=== PATIENT | male | born 1965 | race Caucasian/White ===

== ENCOUNTER 2020-12-01 14:41 | Outpatient (REF) | payer OTHER, SELFPAY ==
--- NOTE | ~2020-12-01 | XR_ITS ---
EXAMINATION: XR KNEE, LEFT CLINICAL INFORMATION: Sprain of the lateral collateral ligament. COMPARISON: None. TECHNIQUE: AP, lateral, and sunrise views of the left knee. FINDINGS: Lateral patellar subluxation with moderate lateral patellofemoral joint space narrowing. Prominent tricompartmental marginal osteophytes. No fracture or dislocation. No significant joint effusion. Patellofemoral chondrocalcinosis. XR/XR knee LT 3V IMPRESSION: Prominent tract compartment osteophyte arthritis, most severe within the patellofemoral compartment where there is chondrocalcinosis.
== END 2020-12-01 14:42 | disposition home or self-care (01) ==
LOC: HO.XRAY 14:41
PROVIDERS: PCP Internal Medicine; Visit Provider Physician Assistant
DX: S83.422A Sprain of lateral collateral ligament of left knee, initial encounter (principal)
CPT/HCPCS: 73562

== ENCOUNTER → 2020-12-04 13:31 | Outpatient (BNVA) | payer OTHER, SELFPAY | PROVIDERS: PCP Physician Assistant; Visit Provider Physician Assistant | DX: M17.12 Unilateral primary osteoarthritis, left knee (principal); S83.002D Unspecified subluxation of left patella, subsequent encounter | CPT/HCPCS: 20610; J1040 ==

== ENCOUNTER 2021-02-04 16:50 | Outpatient (REF) | payer OTHER, SELFPAY ==
[2021-02-04 17:59] LABS: Hematocrit 46.4 % (42-52); Hemoglobin 15.9 g/dl (14.0-18.0); Mean Corpuscular HGB Conc 34.3 g/dl (31.0-36.0); Mean Corpuscular Hemoglobin 30.3 pg (27.0-33.0); Mean Corpuscular Volume 88.5 fL (80-98); Mean Platelet Volume 10.7 fL (9.4-12.4); Platelet Count 344 X10*3/uL (160-400); Red Blood Count 5.24 X10*6/uL (4.60-5.80); Red Cell Distribution Width 12.4 % (11.0-16.0); White Blood Count 9.6 X10*3/uL (4.8-10.8)
[2021-02-04 18:25] LABS: Alanine Aminotransferase 34 U/L (0-40); Albumin Level 4.3 g/dL (3.5-5.0); Alkaline Phosphatase 87 U/L (39-117); Anion Gap 15 (12-20); Aspartate Amino Transferase 23 U/L (5-37); Bilirubin Direct 0.3 mg/dL (0.0-0.5); Bilirubin Total 0.7 mg/dL (0.0-1.0); Blood Urea Nitrogen 18 mg/dL (9-16); Calcium 9.7 mg/dL (8.4-10.2); Carbon Dioxide 25 mmol/L (22-29); Chloride 104 mmol/L (96-108); Cholesterol 225 mg/dL; Estimated Glomerular Filt Rate 55; Glucose Random 256 mg/dL (60-115); HDL Cholesterol 32 mg/dL; LDL Cholesterol Calculated 133 mg/dl; Potassium 4.8 mmol/L (3.3-5.1); Sodium 139 mmol/L (135-145); Total Protein 7.6 g/dL (6.5-8.0); Triglycerides 300 mg/dL
== END 2021-02-04 16:51 | disposition home or self-care (01) ==
LOC: HO.LAB 16:50
PROVIDERS: PCP Internal Medicine; Visit Provider Internal Medicine
DX: R10.9 Unspecified abdominal pain (principal)
CPT/HCPCS: 36415; 80048; 80061; 80076; 85027

== ENCOUNTER 2021-02-15 08:00 | Outpatient (REF) | payer OTHER, SELFPAY | END 2021-02-15 08:01 | disposition home or self-care (01) | LOC: HO.LAB 08:00 | PROVIDERS: PCP Internal Medicine; Visit Provider Internal Medicine | DX: Z20.822 Contact with and (suspected) exposure to COVID-19 (principal) | CPT/HCPCS: C9803; U0003; U0005 ==

== ENCOUNTER 2021-03-03 11:29 | Outpatient (REF) | payer OTHER, SELFPAY ==
--- NOTE | ~2021-03-03 | US_ITS ---
EXAMINATION: US ABDOMEN COMPLETE CLINICAL INFORMATION: Abnormal levels of serum enzymes. Abdominal pain. COMPARISON: Renal ultrasound 04/27/2017 and 10/04/2011. KUB 07/11/2010. CT abdomen and pelvis 06/28/2010. TECHNIQUE: Real-time imaging of the abdominal viscera. FINDINGS: PANCREAS: The pancreas appears unremarkable, without masses or ductal dilatation, with the exception of the tail which is obscured by bowel gas. ABDOMINAL AORTA: An enlarging distal aortic aneurysm is present measuring 2.9 x 3.6 cm. In 2010 this measured 2.9 x 3.0 cm. INFERIOR VENA CAVA: Visualized portions are normal. LIVER: The liver is normal in size. The liver contour is normal. Parenchymal echogenicity is normal. No focal hepatic lesion. There is no intrahepatic biliary duct dilatation seen. GALLBLADDER: Normal. The gallbladder is physiologically distended without evidence of stones, sludge, polyps, wall thickening or pericholecystic fluid. COMMON BILE DUCT: Normal in caliber measuring 0.4 cm in diameter. RIGHT KIDNEY: No hydronephrosis. No renal calculi or focal parenchymal lesions. The kidney measures 11.6 cm in maximum dimension. LEFT KIDNEY: A mid pole 4 x 2 x 3 mm nonobstructing stone is present. No hydronephrosis. The kidney measures 12.8 cm in maximum dimension. An upper pole exophytic cyst is seen measuring 3.6 x 3.0 x 2.9 cm. This is Bosniak class I and no follow up is indicated. No solid masses are detected. SPLEEN: Normal. The spleen measures 11.4 cm in maximum dimension. FREE FLUID: None. US/US abdomen complete IMPRESSION: 1. 3.6 cm infrarenal abdominal aortic aneurysm, 2.9 x 3.0 cm in 2010. 2. 4 mm nonobstructing left midpole calculus.
== END 2021-03-03 11:30 | disposition home or self-care (01) ==
LOC: HO.HMGCX 11:29
PROVIDERS: PCP Internal Medicine; Visit Provider Internal Medicine
DX: R10.9 Unspecified abdominal pain (principal); R74.8 Abnormal levels of other serum enzymes
CPT/HCPCS: 76700

== ENCOUNTER 2022-03-15 07:29 | Outpatient (REF) | payer OTHER, SELFPAY ==
[2022-03-15 07:48] LABS: MANUAL DIFF FLAG NO
[2022-03-15 07:54] LABS: Basophils Percent Auto 0.3 % (0-2); Eosinophils Absolute Auto 0.2 X10*3/uL (0.0-0.4); Eosinophils Percent Auto 2.4 % (0-4); Hematocrit 44.1 % (42.0-52.0); Hemoglobin 14.9 g/dl (14.0-18.0); Imm Gran Abs Auto 0.02 X10*3/uL (0.00-0.03); Imm Gran Pct Auto 0.3 % (0.0-0.4); Lymphocytes Absolute Auto 2.6 X10*3/uL (1.2-4.9); Lymphocytes Percent Auto 34.1 % (20-40); Mean Corpuscular HGB Conc 33.8 g/dl (31.0-36.0); Mean Corpuscular Hemoglobin 29.5 pg (27.0-33.0); Mean Corpuscular Volume 87.3 fL (80.0-98.0); Mean Platelet Volume 10.4 fL (9.4-12.4); Monocytes Absolute Auto 0.5 X10*3/uL (0.1-1.2); Monocytes Percent Auto 6.2 % (2-11); Neutrophils Absolute Auto 4.3 x10*3/uL (2.0-8.3); Neutrophils Percent Auto 56.7 % (45-73); Platelet Count 286 X10*3/uL (160-400); Red Blood Count 5.05 X10*6/uL (4.60-5.80); Red Cell Distribution Width 12.1 % (11.0-16.0); White Blood Count 7.5 X10*3/uL (4.8-10.8)
[2022-03-15 08:18] LABS: Estimated Average Glucose 214 mg/dL; Hemoglobin A1c % 9.1 %
[2022-03-15 08:19] LABS: Alanine Aminotransferase 35 U/L (0-40); Alkaline Phosphatase 98 U/L (39-117); Anion Gap 12 (12-20); Aspartate Amino Transferase 21 U/L (5-37); Bilirubin Total 0.6 mg/dL (0.0-1.0); Blood Urea Nitrogen 17 mg/dL (9-16); Calcium 8.8 mg/dL (8.4-10.2); Carbon Dioxide 24 mmol/L (22-29); Chloride 104 mmol/L (96-108); Cholesterol 169 mg/dL; Estimated Glomerular Filt Rate > 60; Glucose Fasting 174 mg/dL (60-99); HDL Cholesterol 32 mg/dL; LDL Cholesterol Calculated 118 mg/dl; Potassium 3.8 mmol/L (3.3-5.1); Sodium 136 mmol/L (135-145); Triglycerides 98 mg/dL
[2022-03-15 10:46] LABS: Creatinine Urine 247.47 mg/dL; Microalbum/Creatinine Ratio Ur 4.8 ug/mg cr
== END 2022-03-15 07:30 | disposition home or self-care (01) ==
LOC: HO.LAB 07:29
PROVIDERS: PCP Internal Medicine; Visit Provider Internal Medicine
DX: Z13.0 Encounter for screening for diseases of the blood and blood-forming organs and certain disorders involving the immune mechanism (principal); E11.69 Type 2 diabetes mellitus with other specified complication; E66.01 Morbid (severe) obesity due to excess calories; I10 Essential (primary) hypertension; E78.5 Hyperlipidemia, unspecified
CPT/HCPCS: 36415; 80053; 80061; 82043; 83036; 85025

== ENCOUNTER 2022-05-04 10:34 | Outpatient (REF) | payer OTHER, SELFPAY ==
--- NOTE | ~2022-05-04 | US_ITS ---
EXAMINATION: US RETROPERITONEAL LIMITED (AORTA) CLINICAL INFORMATION: Abdominal aortic aneurysm, without rupture. COMPARISON: Ultrasound abdomen complete 03/03/2021. TECHNIQUE: Morgan-scale, color Doppler and spectral Doppler evaluation of the abdominal aorta. FINDINGS: There are atherosclerotic calcifications. The measurements of the aorta in maximum AP and transverse dimensions respectively are as follows: Proximal: 2.6 x 2.7 cm. Mid: 2.1 x 2.3 cm. Distal: 2.4 x 2.7 cm. PSV: 102 cm/s. The measurements of the common iliac arteries in maximum AP and TRV dimensions are as follows: Right Common Iliac Artery: 1.0 x 1.1 cm. Left Common Iliac Artery: 1.1 x 1.3 cm. US/US abdominal aortic aneurysm IMPRESSION: There is ectasia of the abdominal aorta, without luiza aneurysm formation.
== END 2022-05-04 10:35 | disposition home or self-care (01) ==
LOC: HO.HMGCX 10:34
PROVIDERS: PCP Internal Medicine; Visit Provider Physician Assistant
DX: I71.40 Abdominal aortic aneurysm, without rupture, unspecified (principal)
CPT/HCPCS: 76706

== ENCOUNTER 2022-06-29 07:38 | Emergency (ER) | payer OTHER, SELFPAY ==
--- NOTE | ~2022-06-29 | XR_ITS ---
EXAMINATION: XR CHEST CLINICAL INFORMATION: Pneumonia COMPARISON: 01/05/2009 TECHNIQUE: 2 views of the chest were obtained. FINDINGS: No significant abnormality is noted involving the heart, lungs, mediastinum, bony thorax or soft tissues. Patient status post median sternotomy and a left chest wall bipolar pacemaker is present. XR/XR chest 2V IMPRESSION: No acute intrathoracic disease.
[2022-06-29 07:43] VITALS: BP 146/92; PULSE 95; RESP 18; TEMP 36.7; O2SAT 95; BMI 28.5
[2022-06-29 07:46] VITALS: BP 143/82; PULSE 86; RESP 17; TEMP 37.5; O2SAT 91
--- NOTE | 2022-06-29 07:55 | ED.GENADULT ---
HPI - General Adult General Chief complaint: General Medical Stated complaint: Headache/Cough/Congestion Time Seen by Provider: 06/29/22 07:50 Source: patient Mode of arrival: ambulatory Limitations: no limitations History of Present Illness HPI narrative: This is a 57 years old male presented to emergency department complaining of cough or congestion for about a week. Cough is productive of brown sputum. He did home COVID test which was negative. Patient has history of type 1 diabetes and coronary artery disease status post CABG a Onset (ago): week(s) ( 1) Location: chest Severity: moderate Pain Consistency: constant Associated symptoms: cough Related Data Home Medications Medication Instructions Recorded Confirmed flash glucose sensor #1 ea 04/15/20 03/04/22 insulin glargine 100 unit/mL (3 40 unit subcut BEDTIME 04/15/20 03/04/22 mL) subcutaneous pen aspirin 81 mg tablet,delayed 81 mg PO DAILY 12/01/20 03/04/22 release (Adult Aspirin Regimen) insulin lispro 100 unit/mL 0 - 16 unit subcut TID 02/04/21 03/04/22 subcutaneous pen (Humalog KwikPen (U-100) Insulin) Previous Rx's Medication Instructions Recorded fluticasone propionate 50 1 spray intranasal DAILY 7 days 02/19/21 mcg/actuation nasal #150 mL spray,suspension (Flonase Allergy Relief) blood pressure test kit-large #1 ea 04/05/21 atorvastatin 80 mg tablet 80 mg PO DAILY #90 tabs 10/20/21 metoprolol tartrate 25 mg tablet 12.5 mg PO BID #180 tabs 03/04/22 azithromycin 250 mg tablet See Rx Instructions PO .COMPLEX #6 05/04/22 tabs doxycycline monohydrate 100 mg 100 mg PO BID #14 caps 06/29/22 capsule (Monodox) Allergies Allergy/AdvReac Type Severity Reaction Status Date / Time No Known Allergies Allergy Verified 03/04/22 13:45 [No Known Allergies*] Review of Systems Constitutional: Constitutional: Reports no additional constitutional complaints ENT: Reports system reviewed and no additional complaints, except as documented Respiratory: Respiratory: Reports cough PMFSH Past Medical History Medical History Abdominal aortic aneurysm (AAA) 3.0 cm to 5.5 cm in diameter in male Surgical History Status post double vessel coronary artery bypass Family History Family History Mother Alzheimer disease Mental health disorder Father No problems noted. 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 Cognitive needs: No Hearing needs: No Vision needs: Yes (glasses) Physical Exam ED Vital Signs: Vital Signs - 24 hr 06/29/22 07:43 06/29/22 07:46 06/29/22 09:14 Temperature 98.1 F 99.5 F 98.2 F Pulse Rate 95 86 57 Respiratory Rate 18 17 14 Blood Pressure 146/92 H 143/82 H 98/64 Pulse Oximetry 95 91 L 94 Oxygen Delivery Method Room Air Room Air Room Air BMI result Body Mass Index 28.5 Const General: cooperative Nutritional Appearance: well nourished Orientation/consciousness: patient oriented x3 HENMT Head: Yes normal to inspection General nose exam: Normal external nose present Mouth: Normal oral and palatal mucosa present Neck Neck: Yes normal visual inspection and Yes full ROM Chest Chest palpation & inspection: normal inspection of the chest Resp Effort & Inspection: normal respiratory effort Cardio Jugular venous distension: no JVD Rate: regular rate GI Inspection: Yes normal to inspection Palpation (GI): Soft to palpation, not firm and nontender Skin General skin exam: no rashes or lesions noted and elasticity normal Lesions: no lesions Rashes: no rashes Neuro General: patient oriented x3 Cranial nerves: Yes CN's II-XII intact bilaterally Gait exam (Neuro): Normal gait present Course Reevaluation(s) Reevaluation #1: Chest x-ray is negative, patient as per the cough will discharge him home on doxycycline he is otherwise afebrile and normotensive Time: 09:15 Medications Administered Discontinued Medications Generic Name Dose Route Start Last Admin Trade Name Freq PRN Reason Stop Dose Admin Doxycycline Monohydrate 100 mg 06/29/22 09:12 06/29/22 09:22 Doxycycline Monohydrate 100 Mg Capsule PO 06/29/22 09:13 100 mg ONCE ONE Administration Medical Decision Making Medical Decision Making [facility] Narrative: Patient presented with cough congestion were going to get a chest x-ray to rule out pneumonia Differential Diagnosis Differential Diagnoses: The differential diagnosis associated with the presentation includes Differential diagnosis is pneumonia/bronchitis l Lab Data [facility] Lab Attestation statement: I reviewed the patient's lab results. Labs: Lab Results 06/29/22 Range/Units 07:55 COVID-19 (FRANCINE) Negative (Negative) COVID-19 Clin Com See Note Independent Interpretation I performed an independent interpretation of an: Plain X-Ray Interpretation: negative Radiology Impression Discussion of test interpretation with radiology: I have reviewed the radiologist's reading. Radiologist Impression: CLINICAL INFORMATION: Pneumonia COMPARISON: 01/05/2009 TECHNIQUE: 2 views of the chest were obtained. FINDINGS: No significant abnormality is noted involving the heart, lungs, mediastinum, bony thorax or soft tissues. Patient status post median sternotomy and a left chest wall bipolar pacemaker is present. XR/XR chest 2V IMPRESSION: No acute intrathoracic disease. ? Dictated By: Sal Antonio MD Signed By: <Electronically signed by Sal Antonio MD in OV> 06/29/22 0834 Discharge Plan Discharge Clinical Impression: Bronchitis Patient Disposition: Home, Self-Care Instructions: Acute Bronchitis (ED) Prescriptions: New doxycycline monohydrate [Monodox] 100 mg capsule 100 mg PO BID Qty: 14 0RF No Action atorvastatin 80 mg tablet 80 mg PO DAILY Qty: 90 8RF azithromycin 250 mg tablet See Rx Instructions PO .COMPLEX Qty: 6 0RF Rx Instructions: take 500 mg today (day 1), then 250 mg for 4 days (days 2-5) PO Lantus Solostar U-100 Insulin 100 unit/mL (3 mL) insulin pen 40 unit subcut BEDTIME (DME) FreeStyle Gaston 14 Day Sensor Kit See Rx Instructions topical .MEDSUPPLY Qty: 1 Rx Instructions: As directed aspirin [Adult Aspirin Regimen] 81 mg tablet,delayed release (DR/EC) 81 mg PO DAILY (DME) blood pressure test kit-large Kit See Rx Instructions .Route Qty: 1 0RF Rx Instructions: As directed insulin lispro [Humalog KwikPen Insulin] 100 unit/mL insulin pen 0 - 16 unit subcut TID fluticasone propionate [Flonase Allergy Relief] 50 mcg/actuation spray,suspension 1 spray intranasal DAILY 7 Days Qty: 150 0RF Rx Instructions: administer into each nostril metoprolol tartrate 25 mg tablet 12.5 mg PO BID Qty: 180 8RF Referrals: Benedicto Kay MD [Primary Care Provider] - 2 days Stand Alone Forms: Work/School Release Interventions: ED Discharge Assessment Last Done: 06/29/22 09:24 Discharge Date/Time: 06/29/22 09:25
[2022-06-29 08:28] LABS: COVID-19 Test Negative (Negative); IDNOW Serial# 9DB6401D
[2022-06-29 09:14] VITALS: BP 98/64; PULSE 57; RESP 14; TEMP 36.8; O2SAT 94
[2022-06-29] MEDS: Doxycycline Monohydrate 100 MG CAPSULE PO (09:22)
== END 2022-06-29 09:25 | disposition home or self-care (01) ==
PROVIDERS: Emergency Provider Emergency Medicine; PCP Internal Medicine
DX: J40 Bronchitis, not specified as acute or chronic (principal); R51.9 Headache, unspecified; R05.9 Cough, unspecified; R09.81 Nasal congestion; Z20.822 Contact with and (suspected) exposure to COVID-19; Z20.828 Contact with and (suspected) exposure to other viral communicable diseases; Z79.899 Other long term (current) drug therapy
CPT/HCPCS: 71046; 87635; 99283

== ENCOUNTER 2022-11-07 06:28 | Outpatient (REF) | payer OTHER, SELFPAY ==
[2022-11-07 06:47] LABS: MANUAL DIFF FLAG NO
[2022-11-07 07:21] LABS: Basophils Percent Auto 0.5 % (0-2); Eosinophils Absolute Auto 0.1 X10*3/uL (0.0-0.4); Eosinophils Percent Auto 1.7 % (0-4); Hematocrit 45.4 % (42.0-52.0); Hemoglobin 15.3 g/dl (14.0-18.0); Imm Gran Abs Auto 0.02 X10*3/uL (0.00-0.03); Imm Gran Pct Auto 0.3 % (0.0-0.4); Lymphocytes Absolute Auto 2.6 X10*3/uL (1.2-4.9); Lymphocytes Percent Auto 33.3 % (20-40); Mean Corpuscular HGB Conc 33.7 g/dl (31.0-36.0); Mean Corpuscular Hemoglobin 29.8 pg (27.0-33.0); Mean Corpuscular Volume 88.3 fL (80.0-98.0); Mean Platelet Volume 10.5 fL (9.4-12.4); Monocytes Absolute Auto 0.5 X10*3/uL (0.1-1.2); Monocytes Percent Auto 6.9 % (2-11); Neutrophils Absolute Auto 4.4 x10*3/uL (2.0-8.3); Neutrophils Percent Auto 57.3 % (45-73); Platelet Count 305 X10*3/uL (160-400); Red Blood Count 5.14 X10*6/uL (4.60-5.80); Red Cell Distribution Width 12.1 % (11.0-16.0); White Blood Count 7.7 X10*3/uL (4.8-10.8)
[2022-11-07 07:58] LABS: Estimated Average Glucose 223 mg/dL; Hemoglobin A1c % 9.4 %
[2022-11-07 08:09] LABS: Alanine Aminotransferase 24 U/L (0-40); Alkaline Phosphatase 100 U/L (39-117); Anion Gap 11 (12-20); Aspartate Amino Transferase 17 U/L (5-37); Bilirubin Total 0.9 mg/dL (0.0-1.0); Blood Urea Nitrogen 23 mg/dL (9-16); Calcium 9.5 mg/dL (8.4-10.2); Carbon Dioxide 28 mmol/L (22-29); Chloride 104 mmol/L (96-108); Cholesterol 197 mg/dL; Estimated Glomerular Filt Rate > 60; Glucose Fasting 255 mg/dL (60-99); HDL Cholesterol 35 mg/dL; LDL Cholesterol Calculated 139 mg/dl; Potassium 4.4 mmol/L (3.3-5.1); Sodium 139 mmol/L (135-145); Total Protein 7.4 g/dL (6.5-8.0); Triglycerides 119 mg/dL
[2022-11-07 08:15] LABS: Thyroid Stimulating Hormone 2.35 uIU/mL (0.32-4.0)
== END 2022-11-07 06:29 | disposition home or self-care (01) ==
LOC: HO.LAB 06:28
PROVIDERS: PCP Internal Medicine; Visit Provider Internal Medicine
DX: E03.9 Hypothyroidism, unspecified (principal); D64.9 Anemia, unspecified; R73.9 Hyperglycemia, unspecified; N28.9 Disorder of kidney and ureter, unspecified; E78.5 Hyperlipidemia, unspecified
CPT/HCPCS: 36415; 80053; 80061; 83036; 84443; 85025

== ENCOUNTER 2022-11-08 14:13 | Outpatient (AMB) | payer OTHER, SELFPAY ==
--- NOTE | 2022-11-08 14:19 | A.OFFPC_ITS ---
Vital Signs 11/08/22 14:20 Height 6 ft Weight 214 lb 6 oz BMI 29.1 BP 130/70 Blood Pressure Location Lt brachial Position Sitting Pulse 60 Pulse Source Pulse Oximeter Pulse Oximetry (%) 96 Oxygen Delivery Method Room Air Intake Visit Reasons: rash on stomach Intake Note: Patient is here today for rash on stomach and groin area on going for a week. 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 Accompanied by: Self / Same As Patient Allergies No Known Allergies [No Known Allergies*] Allergy (Verified 11/08/22 14:20) Medication List - Last Reconciled 11/08/22 by Benedicto Kay MD aspirin (Adult Aspirin Regimen) 81 mg PO DAILY atorvastatin 80 mg PO DAILY blood pressure test kit-large As directed flash glucose sensor As directed fluticasone propionate 50 mcg/actuation (Flonase Allergy Relief) 1 spray intranasal DAILY 7 days insulin glargine 40 units (0.4 mL) subcut BEDTIME insulin lispro (Humalog KwikPen (U-100) Insulin) 1 sliding scale dose subcut TID metoprolol tartrate 25 mg PO BID Tobacco use date assessed: 11/08/22 Dental Screening Dental Screen Date: 11/08/22 Did you have a dental visit in the last 12 months?: Yes Did you have a dental problem in the last 6 months where you did not have access to dental care?: No Was dental information given to patient?: Patient has dentist HPI rash on stomach HPI Details bitten on abd bya tick 2 days ago PFSH Medical History Abdominal aortic aneurysm (AAA) 3.0 cm to 5.5 cm in diameter in male Surgical History Status post double vessel coronary artery bypass Family History Mother Alzheimer disease Mental health disorder Father No problems noted. 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 Matheus House, Conchita Jacome, Gutierrez Dorado and colleagues, with an educational lee ann from [employer]. Review of Systems Const Denies chills, Denies headache(s) and Denies weight loss ENT Denies headache(s) Card Denies chest pain, Denies syncope, Denies irregular heart rhythm and Denies dyspnea Resp Denies chest congestion, Denies cough and Denies dyspnea GI Denies abdominal pain, Denies change in stool character, Denies nausea and Denies vomiting Musc Denies deformity and Denies joint swelling Neuro Denies syncope and Denies headache(s) Physical exam (Primary Care) Vital Signs: Last Vital Signs Pulse 60 11/08/22 14:20 BP 130/70 11/08/22 14:20 Pulse Ox 96 11/08/22 14:20 Oxygen Delivery Method Room Air 11/08/22 14:20 BMI result Body Mass Index 29.1 Tobacco/Smoking Status: Tobacco use Status Tobacco use date assessed 11/08/22 11/08/22 14:25 Patient Tobacco Use Status Never used Tobacco 11/08/22 14:25 e-Cigarette/Vaping Use Never Used 11/08/22 14:25 Thrive Assessment: Date of Thrive Assessment Date Thrive assessed 07/04/22 11/08/22 14:25 Const General: cooperative, comfortable and no acute distress Resp Effort & Inspection: normal respiratory effort Auscultation: clear to auscultation bilaterally Percussion: percussion normal Cardio Jugular venous distension: no JVD Rate: regular rate Rhythm: regular rhythm Skin Other: papule with surrounding erythema lower abd Assessment and Plan Assessment & Plan (1) Tick bite: Code(s): W57.XXXA - Bitten or stung by nonvenomous insect and other nonvenomous arthropods, initial encounter Plan: lab and rx Orders: Orders Lyme IgG/IgM w/reflex to WB Today W57.XXXA - Bitten or stung by nonvenomous insect and other nonvenomous arthropods, initial encounter Medications: New clotrimazole-betamethasone 1-0.05 % 1 appl topical BID 45 grams 0RF 2 weeks doxycycline hyclate 100 mg PO BID 30 caps 0RF Coding Level of Care Code Est Pt Level 3 (39296) Diagnoses Tick bite W57.XXXA
[2022-11-08 14:20] VITALS: BP 130/70; PULSE 60; O2SAT 96; BMI 29.1
== END 2022-11-08 14:31 | disposition home or self-care (01) ==
PROVIDERS: PCP Internal Medicine; Visit Provider Internal Medicine
DX: S30.861A Insect bite (nonvenomous) of abdominal wall, initial encounter (principal); W57.XXXA Bitten or stung by nonvenomous insect and other nonvenomous arthropods, initial encounter
CPT/HCPCS: 99213

== ENCOUNTER 2023-03-27 09:50 | Outpatient (AMB) | payer OTHER, SELFPAY ==
[2023-03-27 09:56] VITALS: BP 142/88; PULSE 76; O2SAT 98; BMI 29.7
--- NOTE | 2023-03-27 09:56 | MHC.PC.OV ---
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 Accompanied by: Self / Same As Patient Allergies No Known Allergies [No Known Allergies*] Allergy (Verified 03/27/23 09:56) Medication List - Last Reconciled 03/27/23 by Benedicto Kay MD aspirin (Adult Aspirin Regimen) 81 mg PO DAILY atorvastatin 80 mg PO DAILY blood pressure test kit-large As directed doxycycline hyclate 100 mg PO BID flash glucose sensor As directed fluticasone propionate 50 mcg/actuation (Flonase Allergy Relief) 1 spray intranasal DAILY 7 days insulin glargine 40 units (0.4 mL) subcut BEDTIME insulin lispro (Humalog KwikPen (U-100) Insulin) 1 sliding scale dose subcut TID metoprolol tartrate 25 mg PO BID Tobacco use date assessed: 11/08/22 Dental Screening Dental Screen Date: 03/27/23 Did you have a dental visit in the last 12 months?: Yes Did you have a dental problem in the last 6 months where you did not have access to dental care?: No Was dental information given to patient?: Patient has dentist HPI Bowel Issues HPI Details ED for a month; DM with poorly controlled BS; Endo has increased his insulin PFSH Medical History Abdominal aortic aneurysm (AAA) 3.0 cm to 5.5 cm in diameter in male Surgical History Status post double vessel coronary artery bypass Family History Mother Alzheimer disease Mental health disorder Father No problems noted. 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 Matheus House, Conchita Jacome, Gutierrez Dorado and colleagues, with an educational lee ann from [employer]. Review of Systems Const Denies chills, Denies headache(s) and Denies weight loss ENT Denies headache(s) Card Denies chest pain, Denies syncope, Denies irregular heart rhythm and Denies dyspnea Resp Denies chest congestion, Denies cough and Denies dyspnea GI Denies abdominal pain, Denies change in stool character, Denies nausea and Denies vomiting Musc Denies deformity and Denies joint swelling Neuro Denies syncope and Denies headache(s) Physical exam (Primary Care) Vital Signs: Last Vital Signs Pulse 76 03/27/23 09:56 BP 142/88 H 03/27/23 09:56 Pulse Ox 98 03/27/23 09:56 Oxygen Delivery Method Room Air 03/27/23 09:56 BMI result Body Mass Index 29.7 Tobacco/Smoking Status: Tobacco use Status Tobacco use date assessed 11/08/22 03/27/23 09:57 Patient Tobacco Use Status Never used Tobacco 03/27/23 09:57 e-Cigarette/Vaping Use Never Used 03/27/23 09:57 Thrive Assessment: Date of Thrive Assessment Date Thrive assessed 07/04/22 03/27/23 09:57 Const General: cooperative, comfortable, no acute distress and alert Neck Neck: Yes no lymphadenopathy Thyroid: Thyroid normal Resp Effort & Inspection: normal respiratory effort Auscultation: clear to auscultation bilaterally Percussion: percussion normal Cardio Jugular venous distension: no JVD Palpation: normal PMI Rate: regular rate Rhythm: regular rhythm Heart sounds: S1 normal heart sound present and S2 normal heart sound present GI Inspection: Yes normal to inspection Palpation (GI): No hepatosplenomegaly present Skin General skin exam: no rashes or lesions noted Extrem General: Yes no clubbing, cyanosis or edema Results AMB Hemoglobin A1c AMB Hemoglobin A1c 10.3 % Last Edit by DENNISE Mccann on 03/27/23 10:08 Results Reviewed Results Reviewed: Laboratory Last Values Hgb A1c (Clinic) 10.3 % (4.0-6.0) H 03/27/23 09:57 Assessment and Plan Assessment & Plan (1) Erectile dysfunction: Code(s): N52.9 - Male erectile dysfunction, unspecified Plan: rx Orders: Orders AMB Hemoglobin A1c Today E11.9 - Type 2 diabetes mellitus without complications, I10 - Essential (primary) hypertension Medications: New sildenafil (Viagra) administer 30 minutes to 4 hours before activity 50 mg PO DAILY PRN 30 tabs 3RF sexual activity Coding Level of Care Code Est Pt Level 3 (95182) Diagnoses Erectile dysfunction N52.9
== END 2023-03-27 10:14 | disposition home or self-care (01) ==
PROVIDERS: PCP Internal Medicine; Visit Provider Internal Medicine
DX: E11.9 Type 2 diabetes mellitus without complications (principal); I10 Essential (primary) hypertension; N52.9 Male erectile dysfunction, unspecified
CPT/HCPCS: 83036; 99213

== ENCOUNTER 2023-06-05 07:32 | Outpatient (REF) | payer OTHER, SELFPAY ==
[2023-06-05 07:47] LABS: MANUAL DIFF FLAG NO
[2023-06-05 08:22] LABS: Basophils Percent Auto 0.4 % (0-2); Eosinophils Absolute Auto 0.2 X10*3/uL (0.0-0.4); Hematocrit 46.3 % (42.0-52.0); Imm Gran Abs Auto 0.03 X10*3/uL (0.00-0.03); Imm Gran Pct Auto 0.3 % (0.0-0.4); Lymphocytes Absolute Auto 2.2 X10*3/uL (1.2-4.9); Lymphocytes Percent Auto 22.9 % (20-40); Mean Corpuscular HGB Conc 34.6 g/dl (31.0-36.0); Mean Corpuscular Volume 86.7 fL (80.0-98.0); Mean Platelet Volume 10.4 fL (9.4-12.4); Monocytes Absolute Auto 0.8 X10*3/uL (0.1-1.2); Monocytes Percent Auto 8.6 % (2-11); Neutrophils Absolute Auto 6.2 x10*3/uL (2.0-8.3); Neutrophils Percent Auto 65.8 % (45-73); Platelet Count 320 X10*3/uL (160-400); Red Blood Count 5.34 X10*6/uL (4.60-5.80); Red Cell Distribution Width 12.3 % (11.0-16.0); White Blood Count 9.4 X10*3/uL (4.8-10.8)
[2023-06-05 09:11] LABS: Alanine Aminotransferase 42 U/L (0-40); Albumin Level 4.1 g/dL (3.5-5.0); Alkaline Phosphatase 111 U/L (39-117); Anion Gap 14 (12-20); Aspartate Amino Transferase 29 U/L (5-37); Bilirubin Total 0.8 mg/dL (0.0-1.0); Blood Urea Nitrogen 17 mg/dL (9-16); Calcium 9.5 mg/dL (8.4-10.2); Carbon Dioxide 25 mmol/L (22-29); Chloride 102 mmol/L (96-108); Cholesterol 182 mg/dL (<200); Estimated Glomerular Filt Rate > 60; Glucose Fasting 187 mg/dL (60-99); HDL Cholesterol 33 mg/dL (>40); LDL Cholesterol Calculated 129 mg/dL (<100); Potassium 3.9 mmol/L (3.3-5.1); Sodium 137 mmol/L (135-145); Total Protein 7.7 g/dL (6.5-8.0); Triglycerides 104 mg/dL (<150)
[2023-06-05 09:16] LABS: Prostate Specific Antigen Scr 1.51 ng/mL (<0.05-4.0)
[2023-06-05 09:17] LABS: Thyroid Stimulating Hormone 1.79 uIU/mL (0.32-4.0)
[2023-06-06 06:28] LABS: Lyme Abs Screen <0.90 index
== END 2023-06-05 07:33 | disposition home or self-care (01) ==
LOC: HO.LAB 07:32
PROVIDERS: PCP Internal Medicine; Visit Provider Internal Medicine
DX: Z00.00 Encounter for general adult medical examination without abnormal findings (principal); Z12.5 Encounter for screening for malignant neoplasm of prostate; D64.9 Anemia, unspecified; N28.9 Disorder of kidney and ureter, unspecified; E03.9 Hypothyroidism, unspecified; E78.5 Hyperlipidemia, unspecified; W57.XXXA Bitten or stung by nonvenomous insect and other nonvenomous arthropods, initial encounter; T14.8XXA Other injury of unspecified body region, initial encounter
CPT/HCPCS: 36415; 80053; 80061; 84153; 84443; 85025; 86617; 86618

== ENCOUNTER 2023-06-07 13:39 | Outpatient (AMB) | payer OTHER, SELFPAY ==
[2023-06-07 13:41] VITALS: BP 122/86; RESP 80; O2SAT 96
--- NOTE | 2023-06-07 13:41 | MHC.PC.OV ---
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: Not Required per policy Accompanied by: Self / Same As Patient Allergies No Known Allergies [No Known Allergies*] Allergy (Verified 06/07/23 13:41) Medication List - Last Reconciled 06/08/23 by Benedicto Kay MD aspirin (Adult Aspirin Regimen) 81 mg PO DAILY atorvastatin 80 mg PO DAILY blood pressure test kit-large As directed doxycycline hyclate 100 mg PO BID flash glucose sensor As directed fluticasone propionate 50 mcg/actuation (Flonase Allergy Relief) 1 spray intranasal DAILY 7 days insulin glargine 40 units (0.4 mL) subcut BEDTIME insulin lispro (Humalog KwikPen (U-100) Insulin) 1 sliding scale dose subcut TID metoprolol tartrate 25 mg PO BID sildenafil (Viagra) 50 mg PO DAILY PRN Tobacco use date assessed: 06/07/23 Dental Screening Dental Screen Date: 06/07/23 Did you have a dental visit in the last 12 months?: Yes Did you have a dental problem in the last 6 months where you did not have access to dental care?: No Was dental information given to patient?: Patient has dentist HPI Annual PE/Overdue FUP HPI Details DM HTN and hyperlipidemia; doing well; has switched to CGM system [facility] Medical History Abdominal aortic aneurysm (AAA) 3.0 cm to 5.5 cm in diameter in male Surgical History Status post double vessel coronary artery bypass Family History Mother Alzheimer disease Mental health disorder Father No problems noted. 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 1. Little interest or pleasure in doing things: not at all 2. Feeling down, depressed, or hopeless: not at all 3. Trouble falling or staying asleep, or sleeping too much: not at all 4. Feeling tired or having little energy: not at all 5. Poor appetite or overeating: not at all 6. Feeling bad about yourself - or that you are a failure or have let yourself or your family down: not at all 7. Trouble concentrating on things, such as reading the newspaper or watching television: not at all 8. Moving or speaking so slowly that other people could have noticed. Or the opposite - being so fidgety or restless that you have been moving around a lot more than usual: not at all 9. Thoughts that you would be better off or of hurting yourself in some way: not at all Total score: 0 Depression Screening Interpretation: Negative Depression Screening Done: Yes 13419 - PHQ-9 Billing: Yes Source: Developed by Drs. Matheus House, Conchita Jacome, Gutierrez Dorado and colleagues, with an educational lee ann from [employer]. Thrive Questionnaire Date Thrive assessed: 06/07/23 I am a: Patient What is your living situation today?: I have a steady place to live Within the past 12 months, did the food you bought not last and you didn't have the money to get more?: Never true Within the past 12 months, did you worry whether your food would run out before you got money to buy more?: Never true Do you have trouble paying for medicines?: No Do you have trouble getting transportation to medical appointments?: No Do you have trouble paying your heating and electricity bill?: No Do you have trouble taking care of your child, family member or friend?: No Do you have trouble with day-to-day activities such as bathing, preparing meals, shopping, managing finances, etc.?: No Are you currently unemployed and looking for a job?: No Are you interested in more education?: No Please select the resources that you would like help with: None THRIVE Score: 0 AUDIT C Alcohol Use Questionnaire (AUDIT-C) 1. How often do you have a drink containing alcohol?: Never Total Score: 0 Score Reviewed/Action Taken: Yes JAMSHID-7 AMB Questionnaire JAMSHID-7 Date JAMSHID - 7 assessed: 06/07/23 Feeling nervous, anxious, or on edge: 0 = Not at all Not being able to stop or control worryin = Not at all Worrying too much about different things: 0 = Not at all Trouble relaxin = Not at all Being so restless that it is hard to sit still: 0 = Not at all Becoming easily annoyed or irritable: 0 = Not at all Feeling afraid as if something awful might happen: 0 = Not at all Total JAMSHID-7 score (0-4 normal; 5-9 mild; 10-14 moderate; 15-21 severe): 0 Source: Developed by Drs. Matheus House, Conchita Jacome, Gutierrez Dorado and colleagues, with an educational lee ann from [employer]. Review of Systems Const Denies chills, Denies fatigue, Denies headache(s) and Denies weight loss Eyes Denies change in vision, Denies diplopia and Denies eye pain ENT Denies vertigo, Denies dizziness, Denies headache(s) and Denies nasal discharge Card Denies chest pain, Denies rapid heart rate and Denies dyspnea on exertion Resp Denies chest congestion, Denies cough, Denies pain with cough and Denies dyspnea on exertion GI Denies abdominal pain, Denies hematochezia and Denies change in bowel habits Musc Denies myalgias, Denies arthralgias and Denies joint swelling Skin/Breast Denies lesions and Denies unusual bruising Neuro Denies vertigo, Denies dizziness, Denies headache(s) and Denies focal weakness Endo Denies fatigue Physical exam (Primary Care) Vital Signs: Last Vital Signs Resp 80 H 06/07/23 13:41 BP 122/86 06/07/23 13:41 Pulse Ox 96 06/07/23 13:41 Oxygen Delivery Method Room Air 06/07/23 13:41 BMI result Body Mass Index 30.0 Tobacco/Smoking Status: Tobacco use Status Tobacco use date assessed 06/07/23 06/07/23 13:46 Patient Tobacco Use Status Never used Tobacco 06/07/23 13:46 e-Cigarette/Vaping Use Never Used 06/07/23 13:46 PHQ-9: PHQ-9 Score PHQ-9: Total score 0 06/07/23 13:46 Depression Screening Interpretation: Negative Thrive Assessment: Date of Thrive Assessment Date Thrive assessed 06/07/23 06/07/23 13:46 Const General: cooperative, healthy appearing and no acute distress Orientation/consciousness: oriented to person, oriented to place and oriented to time HENMT Head: Yes normal to inspection, Yes normocephalic and Yes atraumatic Mouth: Normal oral and palatal mucosa present and tongue normal Throat: Yes posterior oropharynx normal and Yes uvula midline Eyes General: appearance normal, both eyes and all related structures Neck Neck: Yes normal visual inspection, Yes full ROM and Yes no lymphadenopathy Thyroid: Thyroid normal Carotids: normal carotid upstroke Chest Chest palpation & inspection: normal inspection of the chest Resp Effort & Inspection: normal respiratory effort and able to speak in complete sentences Auscultation: clear to auscultation bilaterally Cardio Jugular venous distension: no JVD Palpation: normal PMI Rate: regular rate Rhythm: regular rhythm Heart sounds: S1 normal heart sound present and S2 normal heart sound present GI Inspection: Yes normal to inspection Palpation (GI): Soft to palpation and No hepatosplenomegaly present Auscultation: normal bowel sounds General: Yes no CVA tenderness Back/Spine/Pelvis Back: no CVA tenderness Skin General skin exam: no rashes or lesions noted Neuro General: oriented to person, oriented to place and oriented to time Extrem General: Yes normal to inspection and Yes full ROM Assessment and Plan Assessment & Plan (1) Physical exam: Code(s): Z00.00 - Encounter for general adult medical examination without abnormal findings Plan: stable; (2) Diabetes mellitus with coincident hypertension: Code(s): E11.9 - Type 2 diabetes mellitus without complications; I10 - Essential (primary) hypertension Plan: do labs (3) Hyperlipidemia: Code(s): E78.5 - Hyperlipidemia, unspecified Plan: stable; do labs (4) HTN (hypertension): Code(s): I10 - Essential (primary) hypertension Plan: stable Orders: Orders Microalbumin, Random (w Creat) Today E11.69 - Type 2 diabetes mellitus with other specified complication, E66.01 - Morbid (severe) obesity due to excess calories Complete Blood Count Auto Diff Today D64.9 - Anemia, unspecified Comprehensive Bruce. Panel Fast Today N28.9 - Disorder of kidney and ureter, unspecified Glucose Fasting Today R73.9 - Hyperglycemia, unspecified Lipid Panel Today E78.5 - Hyperlipidemia, unspecified Coding Level of Care Code Est Pt Prev Care 40-64y(15777) Diagnoses Physical exam Z00.00 Diabetes mellitus with coincident hypertension E11.9; I10 Hyperlipidemia E78.5 HTN (hypertension) I10
== END 2023-06-07 14:09 | disposition home or self-care (01) ==
PROVIDERS: PCP Internal Medicine; Visit Provider Internal Medicine
DX: Z00.00 Encounter for general adult medical examination without abnormal findings (principal); E11.9 Type 2 diabetes mellitus without complications; I10 Essential (primary) hypertension; E78.5 Hyperlipidemia, unspecified
CPT/HCPCS: 99396

== ENCOUNTER 2023-08-30 09:08 | Outpatient (AMB) | payer OTHER, SELFPAY ==
--- NOTE | 2023-08-30 09:08 | MHC.OFFWIV ---
Intake Vital Signs 08/30/23 09:11 Height 6 ft Weight 223 lb BMI 30.2 BP 128/80 Blood Pressure Location Lt brachial Position Sitting Pulse 73 Pulse Source Pulse Oximeter Temp 97.2 F Temp Source Temporal Artery Scan Pulse Oximetry (%) 97 Oxygen Delivery Method Room Air Intake Visit Reasons: EST/sore throat (lobby) Intake Note: pt is here today for sore throat started 3 weeks ago Patient Tobacco Use Status: Never used Tobacco Allergies No Known Allergies [No Known Allergies*] Allergy (Verified 08/30/23 09:14) Do you need a note to return to daycare/school/sports/work: No HPI HPI Comments History of Present Illness Details 58 y/o male patient who presents to walk in clinic with c/o Post-nasal cough, sinus congestion and sore-throat x 3 weeks. In the past he tried Flonase with good symptom relief. PCP sent Flonase to pharmacy yesterday. [facility] Medical History Abdominal aortic aneurysm (AAA) 3.0 cm to 5.5 cm in diameter in male Surgical History Status post double vessel coronary artery bypass Family History Mother Alzheimer disease Mental health disorder Father No problems noted. 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 Cognitive needs: No Hearing needs: No Vision needs: Yes (glasses) Review of Systems Const All systems reviewed & are unremarkable except as noted in HPI and below Physical Exam Vital Signs: Last Vital Signs Temp 97.2 F 08/30/23 09:11 Pulse 73 08/30/23 09:11 BP 128/80 08/30/23 09:11 Pulse Ox 97 08/30/23 09:11 Oxygen Delivery Method Room Air 08/30/23 09:11 BMI result Body Mass Index 30.2 Const General: comfortable and no acute distress Nutritional Appearance: well nourished Orientation/consciousness: patient oriented x3 HEENT Head: Yes normocephalic Ears: external ears normal and TM's normal bilaterally General nose exam: Normal external nose present, Abnormal mucous membranes and turbinates present pale and Nasal discharge present Face and sinus: Yes normal facial exam and Yes sinuses nontender Mouth: moist mucous membranes Throat: Yes postnasal drainage Resp Effort & Inspection: normal respiratory effort Auscultation: clear to auscultation bilaterally Neuro General: patient oriented x3 Results AMB Rapid Strep AMB Rapid Strep Negative Last Edit by Margarette Lucio MA on 08/30/23 09:21 Results Reviewed Results Reviewed: Laboratory Last Values Strep Scn Rapid Clinic Negative 08/30/23 09:21 Assessment & Plan Assessment & Plan (1) Allergic rhinitis: Code(s): J30.9 - Allergic rhinitis, unspecified Qualifiers: Allergic rhinitis trigger: pollen Allergic rhinitis seasonality: seasonal Qualified Code(s): J30.1 - Allergic rhinitis due to pollen Plan: - Take Flonase as directed - Take Zrytec and Pepcid - F/u With PCP. Medications: New famotidine 20 mg PO BEDTIME 30 tabs 0RF J30.1 - Allergic rhinitis due to pollen cetirizine (Zyrtec) 10 mg PO DAILY PRN 30 tabs 0RF allergy symptoms J30.1 - Allergic rhinitis due to pollen Coding Level of Care Code Est Pt Level 3 (07095) Diagnoses Seasonal allergic rhinitis due to pollen J30.1 Allergic rhinitis trigger: pollen Allergic rhinitis seasonality: seasonal Time Spent (min) 15
[2023-08-30 09:11] VITALS: BP 128/80; PULSE 73; TEMP 36.2; O2SAT 97; BMI 30.2
== END 2023-08-30 10:25 | disposition home or self-care (01) ==
PROVIDERS: PCP Internal Medicine; Visit Provider Nurse Practitioner Family
DX: J30.1 Allergic rhinitis due to pollen (principal)
CPT/HCPCS: 99213

== ENCOUNTER 2023-09-01 08:39 | Outpatient (AMB) | payer OTHER, SELFPAY ==
--- NOTE | 2023-09-01 08:50 | A.OFFVIS_ITS ---
Intake Visit Reasons: New Prob - Right knee pain Intake Note: Vinh is a 58 year old male who presents today for a evaluation of his right knee pain. Patient was seen for his left knee OA, last inj 12/04/20. Patient reports that his last injection gave his left knee about 2 - 3 years of relief. He expresses that he would like to repeat. Hx of surgeries in his right knee. Pain is more focused under the knee cap and on the lateral aspect of the knee. Pain is worse when he is going down the stairs. Allergies No Known Allergies [No Known Allergies*] Allergy (Verified 09/01/23 08:53) HPI HPI New Prob - Right knee pain: Details: 58-year-old male who presents in the office today for an evaluation of right knee pain. Due to the relief obtained by the injection in the left knee on 12/04/2020, the patient would like to proceed with a cortisone injection in the right knee. He reports the pain is located under the knee cap and the lateral aspect of the right knee. He states the pain increases with descending stairs. Patient has a history of multiple surgeries in the right knee. Patient was seen in the office on 12/05/2023 for left knee osteoarthritis when he received a cortisone injection. He reports his last injection gave him about 2-3 years of relief. Patient has a significant medical history of diabetes mellitus. Patient reports his blood glucose levels are controlled. [facility] Medical History Abdominal aortic aneurysm (AAA) 3.0 cm to 5.5 cm in diameter in male Surgical History Status post double vessel coronary artery bypass Family History Mother Alzheimer disease Mental health disorder Father No problems noted. 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 No ecchymosis, erythema, or joint effusion. No tenderness to palpation along the medial or lateral joint lines. Crepitus felt with ROM. Lacking roughly 15 degrees of extension and flexion to 90 degrees. NVI.? Office Procedures Joint Injection/Drain Joint Injection/Drain Primary Site: right knee Prep: site was prepped using aseptic technique, ethochloride spray was applied and injection warnings given Injected: 40 mg of, DepoMedrol, with 8 mL of (2% plain lido ) and in the joint Approach Used: anterolateral Procedure: The patient tolerated the procedure well, but had some pain with the injection and there was some relief with the local anesthesia Coding 94851 - Large joint Procedure code (CPT) selection complete Assessment & Plan Assessment & Plan (1) Osteoarthritis of right knee: Code(s): M17.11 - Unilateral primary osteoarthritis, right knee Category: Medical Plan Mr. Pool is a 58-year-old male who presents in the office today for an evaluation of right knee pain. Due to the relief obtained by the injection in the left knee on 12/04/2020, the patient would like to proceed with a cortisone injection in the right knee. He reports the pain is located under the knee cap and the lateral aspect of the right knee. He states the pain increases with descending stairs. Patient has a history of multiple surgeries in the right knee. Patient was seen in the office on 12/05/2023 for left knee osteoarthritis when he received a cortisone injection. He reports his last injection gave him about 2-3 years of relief. Patient has a significant medical history of diabetes mellitus. Patient reports his blood glucose levels are controlled. The patient was offered a cortisone injection in the right knee with 40 mg of DepoMedrol. The patient was explained the risk, benefits, and alternatives to receiving this injection. After receiving consent for the injection, the patient had the procedure done while in the office today. The patient tolerated the procedure well with no complications. Due to the patient?s history of diabetes, they were instructed to monitor his/her blood glucose level. The patient was informed that they could see a rise in their numbers and if the numbers became too high, they were instructed to call their PCP. The patient was also informed that they could have facial flushing as a side effect of the injection, but this will pass. Follow up will be PRN, or sooner if needed. X-rays of the right knee which were obtained while in the office today and were reviewed by me, Keisha Ludwig PA-C, revealed severe osteoarthritis in the bilateral knees. No acute fracture or dislocation. Orders: Orders XR knee RT 3V Today M25.569 - Pain in unspecified knee Patient Instructions: Scribed by Colette Chaudhary medical office assistant, for Keisha Ludwig PA-C on 09/01/2023 at 08:55 a.m. EST Corrections made in the chart by kilo Fox scribe on 09/01/2023 at 9:51 am, EST. Coding Level of Care Code Est Pt Level 4 (28421) Diagnoses Osteoarthritis of right knee M17.11 CPT Codes Coding - 76177 Large joint: 67975 - Large joint ([id number])
== END 2023-09-01 09:20 | disposition home or self-care (01) ==
PROVIDERS: PCP Internal Medicine; Visit Provider Physician Assistant
DX: M17.11 Unilateral primary osteoarthritis, right knee (principal)
CPT/HCPCS: 20610; 99214

== ENCOUNTER 2023-09-01 14:30 | Outpatient (REF) | payer OTHER, SELFPAY ==
--- NOTE | ~2023-09-01 | XR_ITS ---
EXAMINATION: AP upright both knees 2 additional views of the right knee CLINICAL INFORMATION: Pain in the knee COMPARISON: X-rays of the left knee November 2020 and x-rays of the right knee November 2012 TECHNIQUE: AP upright of both these. Lateral patella views of the right knee FINDINGS: Right knee: There is chondrocalcinosis more evident compared to prior. Patellofemoral compartment there is nonuniform joint space narrowing with prominent marginal osteophytes indicative of at least moderate osteoarthritis unchanged compared to prior. There are prominent marginal osteophytes in the medial and lateral compartments without definite joint space narrowing indicative of mild to moderate osteoarthritis unchanged. Surgical clips noted in the medial soft tissues. Left knee Limited AP upright: Chondrocalcinosis. Prominent marginal osteophytes without joint space narrowing indicative of mild to moderate osteoarthritis unchanged. XR/XR knee RT 3V IMPRESSION: RIGHT KNEE: Chondrocalcinosis. Osteoarthritis unchanged compared with x-rays November 2012. LEFT KNEE: Chondrocalcinosis and osteoarthritis unchanged compared with prior x-rays November 2020.
== END 2023-09-01 14:31 | disposition home or self-care (01) ==
LOC: HO.HOSX 14:30
PROVIDERS: Visit Provider Physician Assistant
DX: M17.11 Unilateral primary osteoarthritis, right knee (principal)
CPT/HCPCS: 20610; 73562; J1010

== ENCOUNTER 2023-10-18 10:08 | Day surgery (SDC) | payer BC, SELFPAY ==
[2023-10-16 14:22] VITALS: BMI 30.4
[2023-10-18 10:20] VITALS: BP 154/84; PULSE 70; RESP 18; TEMP 36.3; O2SAT 96; BMI 28.8
[2023-10-18] MEDS: Lactated Ringers 1,000 ML 100 ML IVCONT (10:32)
--- NOTE | 2023-10-18 10:37 | HO.ANESPROP2 ---
HPI - Anesthesia Eval Consult details Narrative: 58 yo M presenting for colonoscopy. POC glucose 217 in pre-op today. [facility] Active Problems Active Problems: All Active Problems Oral candidiasis (Acute) Osteoarthritis of right knee (Acute) Physical exam (Acute) Erectile dysfunction (Acute) Diabetes mellitus with coincident hypertension (Acute) Hyperlipidemia (Acute) HTN (hypertension) (Acute) CAD (coronary artery disease) (Acute) DMII (diabetes mellitus, type 2) (Acute) Sinusitis (Acute) Abdominal pain (Acute) Subluxation of left patella (Acute) Osteoarthritis of left knee (Acute) Tear of LCL (lateral collateral ligament) of knee (Acute) COVID-19 (Acute) Abdominal aortic aneurysm (AAA) 3.0 cm to 5.5 cm in diameter in male (Acute) Past Medical History Medical History Hx of cardiac pacemaker IBS (irritable bowel syndrome) Osteoarthritis AAA (abdominal aortic aneurysm) CAD (coronary artery disease) HTN (hypertension) Diabetes Abdominal aortic aneurysm (AAA) 3.0 cm to 5.5 cm in diameter in male Family History Family History Mother Alzheimer disease Mental health disorder Father No problems noted. Family history of problems with anesthesia: No Surgical History Surgical History Hx of left inguinal hernia repair Hx of arthroscopy of knee H/O colonoscopy Status post double vessel coronary artery bypass History of Problems with Anesthesia: No Social History Social History Housing: House Alcohol intake: never Patient Tobacco Use Status: Never used Tobacco e-Cigarette/Vaping Use: Never Used Second Hand Smoke Exposure: No Use of substances other than those prescribed or required for medical reasons: No Are you DNR?: No Advance Directives: No Advance Directives Information Provided: Yes service: No Current occupational status: employed 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 Cognitive needs: No Hearing needs: No Vision needs: Yes (glasses) Meds Allergies Allergy/AdvReac Type Severity Reaction Status Date / Time No Known Allergies Allergy Verified 09/13/23 15:44 [No Known Allergies*] Active Medications: Current Medications Lactated Ringer's (Lr) 1,000 mls @ 100 mls/hr IVCONT .Q10H ISMAEL Last Admin: 10/18/23 10:32 Dose: 100 mls/hr Sodium Biphosphate/Sodium Phosphate (Sodium Phosphate,[place]-Dibasic 133 Ml Enema) 133 ml NV ONCE PRN PRN Reason: Poor Colonoscopy Prep Results Home Medications ?Medication ?Instructions ?Recorded ?Confirmed ?Last Taken ?Type flash glucose sensor #1 ea 04/15/20 06/08/23 Unknown History Exam Exam Date and Time: October 18, 2023 1036 Height,Weight and Vital Signs: Height 6 ft Weight 96.332 kg Last Vital Signs Temp 97.4 F 10/18/23 10:20 Pulse 70 10/18/23 10:20 Resp 18 10/18/23 10:20 BP 154/84 H 10/18/23 10:20 Pulse Ox 96 10/18/23 10:20 O2 Del Method Room Air 10/18/23 10:20 Airway Mallampati Class: II TM Dist: >3cm Neck ROM: Full Denture: Upper Heart: S1S2 Lungs: CTAB Assessment and Plan Assessment Anesthesia Assessment: Anesthesia Plan Discussed and Chart Reviewed Final Anesthetic Review Family History of Problems with Anesthesia: No History of Problems with Anesthesia: No NPO: Yes ASA Class: III Final Preanesthetic Review: No Changes in Pt Med Stat, Meds/Allgs Chart Reviewed, Consent Obtained/Reviewed and Anes Risks/Benef Reviewed Patient Risk: Intermediate Procedure Risk: Low Anesthetic Plan Anesthetic Plan: MAC: and Agree w/ Assess. and Plan Disposition: Standard PACU
[2023-10-18 10:47] LABS: Glucose, Whole Blood 217 mg/dL (60-115)
[2023-10-18 11:59] VITALS: BP 108/61; PULSE 48; RESP 18; TEMP 36.1; O2SAT 95
--- NOTE | 2023-10-18 12:07 | P.BOP_ITS ---
Brief Operative Note Date of Service: 10/18/23 Pre-op diagnosis: Screening Post-op diagnosis: other (Colon polyp) Procedure: Colonoscopy to the cecum and TI with hot snare polypectomy and placement of two Resolution clips Surgeon: Matheus Nguyen MD Anesthesia: MAC Was an Control Clerk Subassembly used for this Procedure?: No Estimated blood loss (mL): 0 Pathology: other (A. Cecal polyp) Condition: stable Disposition: PACU
[2023-10-18 12:14] VITALS: BP 117/58; PULSE 49; RESP 16; O2SAT 96
[2023-10-18 12:29] VITALS: BP 127/74; PULSE 52; RESP 18; TEMP 36.1; O2SAT 96
--- NOTE | 2023-10-18 12:43 | OP_ITS ---
DATE OF SERVICE: 10/18/2023 SURGEON: Matheus Nguyen MD INDICATIONS: The patient presents for evaluation of colorectal cancer screening and prior history of tubular adenoma of the colon. Full consent has been obtained from him for this, including risks of bleeding and perforation. PREOPERATIVE DIAGNOSIS: POSTOPERATIVE DIAGNOSIS: PROCEDURE PERFORMED: Colonoscopy to cecum with hot snare polypectomy and placement of 2 Resolution clips. ESTIMATED BLOOD LOSS: COMPLICATIONS: ANESTHESIA: Monitored anesthesia care. ASSISTANTS: SPECIMENS: PREOPERATIVE DIAGNOSES: Personal history of tubular adenoma of the colon and colorectal cancer screening. POSTOPERATIVE DIAGNOSES: Personal history of tubular adenoma of the colon, colorectal cancer screening, colon polyp, diverticulosis, and internal hemorrhoids. DESCRIPTION OF PROCEDURE: The patient was placed in the left lateral decubitus position. The digital rectal exam revealed no abnormalities. The [employer] video pediatric colonoscope was then entered into the rectum and advanced easily to the cecum. Once in the cecum, I did identify cecal pouch with appendiceal orifice and a normal-appearing ileocecal valve. The terminal ileum was cannulated and appeared normal. Scope was withdrawn back in the colon. In the cecum, adjacent to the ileocecal valve, but not attached to it, was an approximately 1.5 cm polyp, which was removed by hot snare polypectomy. A single remaining piece was removed further with the hot snare and then recovered by suction. Post polypectomy, the polypectomy site appeared to be clean and without any sign of residual polyp nor bleeding. I did place 2 Resolution clips onto the polypectomy site with good deployment and good hemostasis. The remainder of the cecum including the appendiceal orifice appeared normal. I then used a retrieval net to recover the polyp. I was able to withdraw the scope slowly and carefully to inspect the colon on the way out, which appeared to be free of any other polyps. There was excellent preparation after his 2-day prep. There was a mild amount of sigmoid diverticulosis. I did not visualize any sign of colitis, angiodysplasias, nor any other polyps. In the rectum, scope was retroflexed, visualizing some internal hemorrhoids, but no other pathology. The rectal mucosa appeared normal. Scope was straightened and withdrawn from the patient. He tolerated the procedure well and was returned to the recovery area in stable condition. IMPRESSION: 1. Cecal polyp. 2. Diverticulosis. 3. Internal hemorrhoids. PLAN: The results of the pathology will be checked. I would recommend a repeat colonoscopy in 3 years for further screening given his previous history of a sizable polyp removed in the past and today's findings. He was advised not to use any aspirin and NSAIDs for at least a week. MD MERLENE Mary/HUGH / [phone]
== END 2023-10-18 13:35 | disposition home or self-care (01) ==
PROVIDERS: PCP Internal Medicine; Visit Provider Internal Medicine
PROC: 0DJD8ZZ Inspection of Lower Intestinal Tract, Via Natural or Artificial Opening Endoscopic (ICD-10-PCS; CPT 45378; principal; 2023-10-18 10:30)
DX: Z12.11 Encounter for screening for malignant neoplasm of colon (principal); Z86.010 Personal history of colon polyps; D12.0 Benign neoplasm of cecum; K57.30 Diverticulosis of large intestine without perforation or abscess without bleeding; K64.8 Other hemorrhoids; K58.1 Irritable bowel syndrome with constipation; I10 Essential (primary) hypertension; E11.9 Type 2 diabetes mellitus without complications; I25.2 Old myocardial infarction; I25.10 Atherosclerotic heart disease of native coronary artery without angina pectoris; Z95.5 Presence of coronary angioplasty implant and graft; Z95.1 Presence of aortocoronary bypass graft; Z95.0 Presence of cardiac pacemaker; Z79.4 Long term (current) use of insulin; Z79.01 Long term (current) use of anticoagulants; Z79.82 Long term (current) use of aspirin; Z79.899 Other long term (current) drug therapy; Z87.891 Personal history of nicotine dependence
CPT/HCPCS: 45385; 82947; 88305; J2704

== ENCOUNTER 2023-11-23 13:33 | Outpatient (AMB) | payer BC, SELFPAY ==
--- NOTE | 2023-11-23 13:44 | MHC.OFFVIS ---
Intake Visit Reasons: Left knee injection, last inj 12/04/20 Intake Note: Vinh is a 58 year old male who presents today for a repeat injection for his left knee OA, last inj 12/04/20. Patient reports his last injection gave him a couple months of relief and would like to repeat. Allergies No Known Allergies [No Known Allergies*] Allergy (Verified 11/23/23 13:49) HPI HPI Left knee injection, last inj 12/04/20: Details: 58-year-old male who presents in the office today for a follow-up of left knee osteoarthritis. I last saw the patient for treatment of his left knee pain on 12/04/2020 when he was given a cortisone injection in the left knee. ? ? While in the office today, the patient report the last cortisone injection gave him a couple of months of relief. He would like to repeat the injection in the office today.? ? Patient has a significant medical history of diabetes mellitus.? [facility] Medical History (Updated 11/23/23 @ 13:53 by Ava Mei) Hx of cardiac pacemaker IBS (irritable bowel syndrome) Osteoarthritis AAA (abdominal aortic aneurysm) CAD (coronary artery disease) HTN (hypertension) Diabetes Abdominal aortic aneurysm (AAA) 3.0 cm to 5.5 cm in diameter in male Surgical History Hx of left inguinal hernia repair Hx of arthroscopy of knee H/O colonoscopy Status post double vessel coronary artery bypass Family History Mother Alzheimer disease Mental health disorder Father No problems noted. 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 Cognitive needs: No Hearing needs: No Vision needs: Yes (glasses) Review of Systems Const All systems reviewed & are unremarkable except as noted in HPI and below Physical Exam Const General: cooperative, healthy appearing and no acute distress Orientation/consciousness: patient oriented x3 Resp Effort & Inspection: normal respiratory effort and able to speak in complete sentences Cardio Rate: regular rate Peripheral pulses: Peripheral pulses 2+ throughout GI Palpation (GI): Soft to palpation Skin General skin exam: no rashes or lesions noted Lesions: no lesions Rashes: no rashes Neuro General: patient oriented x3 Extrem Other: Left knee: Normal to inspection. No ecchymosis, erythema or joint effusion. Minimal tenderness to the lateral joint line. No tenderness to palpation of the medial joint line. Negative Renetta's. Negative anterior drawer. NVI. Office Procedures Joint Injection/Aspiration Joint Injection/Aspiration Primary Site: left knee Prep: site was prepped using aseptic technique, ethochloride spray was applied and injection warnings given Injected: 80 mg of, DepoMedrol, with 8 mL of (2% Plain lido ) and in the joint Approach Used: anterolateral Procedure: The patient tolerated the procedure well, but had some pain with the injection and there was some relief with the local anesthesia Coding 07322 - Large joint Procedure code (CPT) selection complete Assessment & Plan Assessment & Plan (1) Osteoarthritis of left knee: Code(s): M17.12 - Unilateral primary osteoarthritis, left knee Category: Medical (2) Diabetes: Code(s): E11.9 - Type 2 diabetes mellitus without complications Category: Medical Plan Mr. Pool is a 58-year-old male who presents in the office today for a follow-up of left knee osteoarthritis. I last saw the patient for treatment of his left knee pain on 12/04/2020 when he was given a cortisone injection in the left knee. ? ? While in the office today, the patient report the last cortisone injection gave him a couple of months of relief. He would like to repeat the injection in the office today.? ? Patient has a significant medical history of diabetes mellitus.?The patient confirms monitoring his glucose levels after his last cortisone injection and noted no changes. We dicussed a total knee arthroplasty in the future. The patient will call the office when he is ready to discuss this in more details. ? The patient was offered a cortisone injection in the left knee with 80 mg of Depo-Medrol. The patient was explained the risks, benefits, and alternatives to receiving this injection. After receiving consent for the injection, the patient had the procedure done while in the office today. The patient tolerated the procedure well with no complications.? ? Due to the patient?s history of diabetes, they were instructed to monitor his/her blood glucose level. The patient was informed that they could see a rise in their numbers and if the numbers became too high, they were instructed to call their PCP. The patient was also informed that they could have facial flushing as a side effect of the injection, but this will pass.? ? Follow-up will be PRN, or sooner if needed.? Patient Instructions: Scribed by Ava Mei medical insurance claims processor, for Keisha Ludwig PA-C on 11/23/2023 at 1:36 pm, EST.? Coding Level of Care Code Est Pt Level 4 (09363) Diagnoses Osteoarthritis of left knee M17.12 Diabetes E11.9 CPT Codes Coding - 30126 Large joint: 86583 - Large joint ([id number])
== END 2023-11-23 14:12 | disposition home or self-care (01) ==
PROVIDERS: PCP Internal Medicine; Visit Provider Physician Assistant
DX: M17.12 Unilateral primary osteoarthritis, left knee (principal); E11.9 Type 2 diabetes mellitus without complications
CPT/HCPCS: 20610; 99214

== ENCOUNTER → 2023-11-23 13:33 | Outpatient (BNVA) | payer BC, SELFPAY | PROVIDERS: PCP Internal Medicine; Visit Provider Physician Assistant | DX: M17.12 Unilateral primary osteoarthritis, left knee (principal); E11.9 Type 2 diabetes mellitus without complications | CPT/HCPCS: 20610; J1010 ==

== ENCOUNTER 2024-05-06 10:37 | Emergency (ER) | payer BC, SELFPAY ==
--- NOTE | ~2024-05-06 | XR_ITS ---
EXAMINATION: XR LUMBAR SPINE 2-3 VIEWS HISTORY: pain s/p fall COMPARISON: There are no prior studies for comparison. FINDINGS: AP, lateral, and coned down views of the lumbar spine are submitted. Osseous mineralization is normal. Five nonrib-bearing lumbar vertebral bodies are identified, maintaining normal height and alignment without evidence of fracture or spondylolisthesis. There is mild degenerative disc disease with disc space narrowing and osteophyte formation. The posterior elements are intact. There is calcification of the abdominal aorta. XR/XR lumbar spine 2-3V IMPRESSION: No evidence of fracture of the lumbar spine. Degenerative changes as described. Electronically signed by: Matheus Spivey MD 05/06/2024 11:26 AM EST
--- NOTE | ~2024-05-06 | XR_ITS ---
EXAMINATION: XR RIBS 3 VIEWS MINIMUM WITH CHEST LEFT HISTORY: pain s/p fall COMPARISON: Comparison is made with the prior examination of the chest dated 06/29/2022. FINDINGS: A single PA view of the chest and 6 views left ribs are submitted. A left subclavian pacemaker is unchanged in position. The lungs are expanded and clear. There is no pleural effusion, pneumothorax, or pulmonary vascular congestion. The heart is normal in size. One of the views demonstrates a probable nondisplaced fracture of the left 11th rib. XR/XR ribs LT min 3V w CXR1V IMPRESSION: Probable nondisplaced fracture of the left 11th rib. Electronically signed by: Matheus Spivey MD 05/06/2024 11:30 AM [facility]
[2024-05-06 10:59] VITALS: BP 141/64; PULSE 53; RESP 18; TEMP 36.6; O2SAT 98
--- NOTE | 2024-05-06 11:06 | ED_ITS ---
HPI - Fall General Chief Complaint: Fall Stated Complaint: Fall down stairs back pain Time Seen by Provider: 05/06/24 13:18 Source: patient Mode of arrival: ambulatory Limitations: no limitations History of Present Illness ED Provider: Beverly Saba APRN HPI Narrative: 58yo male with history of IDDM, HTN, HLD here with complaints of left mid back pain after a slip and fall landing on the edge of a stair just [employer]. Denies hitting head or LOC. Has some pain with taking deep breaths and has mild SOB. NO abdominal pain, vomiting, headache, neck pain, vision changes or cough. Related Data Home Medications ?Medication ?Instructions ?Recorded ?Confirmed flash glucose sensor #1 ea 04/15/20 06/08/23 Previous Rx's ?Medication ?Instructions ?Recorded blood pressure test kit-large #1 ea 04/05/21 insulin glargine 100 unit/mL (3 40 unit (0.4 mL) subcut BEDTIME 09/08/22 mL) subcutaneous pen #15 mL insulin lispro 100 unit/mL 1 sliding scale dose subcut TID 09/08/22 subcutaneous pen (Humalog KwikPen #15 mL (U-100) Insulin) sildenafil 50 mg tablet (Viagra) 50 mg PO DAILY PRN sexual activity 03/27/23 #30 tabs fluticasone propionate 50 1 spray intranasal DAILY 7 days 08/28/23 mcg/actuation nasal #150 mL spray,suspension (Flonase Allergy Relief) cetirizine 10 mg tablet (Zyrtec) 10 mg PO DAILY PRN allergy 08/30/23 symptoms #30 tabs famotidine 20 mg tablet 20 mg PO BEDTIME #30 tabs 08/30/23 metoprolol tartrate 25 mg tablet 25 mg PO BID #180 tabs 11/17/23 atorvastatin 80 mg tablet 80 mg PO DAILY #90 tabs 05/01/24 oxycodone 5 mg tablet 5 mg PO Q8H PRN pain #12 tabs 05/06/24 Allergies Allergy/AdvReac Type Severity Reaction Status Date / Time No Known Allergies Allergy Verified 05/06/24 11:03 [No Known Allergies*] Review of Systems Review of Systems: Yes all other systems are reviewed and are negative Constitutional: Constitutional: Reports no additional constitutional complain ts, Denies body ache(s), Denies chills, Denies fever(s), Denies headache(s) and Denies weakness Eyes: Eyes: Reports no additional eye complaints and Denies change in vision ENT: Reports system reviewed and no additional complaints, except as documented, Denies dizziness, Denies headache(s), Denies nasal congestion, Denies nasal discharge and Denies neck pain Cardiovascular: Cardiovascular: Reports no additional cardiovascular complaints, Denies chest pain, Denies leg edema and Reports dyspnea Respiratory: Respiratory: Reports no additional respiratory complaints, Denies cough and Reports dyspnea Gastrointestinal: Gastrointestinal: Reports no additional gastrointestinal complaints, Denies abdominal pain, Denies diarrhea, Denies nausea and Denies vomiting Genitourinary: Genitourinary: Denies urinary incontinence Musculoskeletal: Musculoskeletal: Reports no additional musculoskeletal complaints, Reports back pain, Denies arthralgias, Denies joint swelling, Denies neck pain, Denies numbness and Denies tingling Integumentary/Breasts: Skin/Breast: Reports system reviewed and no additional complaints, except as docu and Denies rash Neurologic: Reports system reviewed and no additional complaints, except as documented, Denies Abnormal speech present, Denies dizziness, Denies headache(s), Denies numbness, Denies tingling and Denies weakness PMFSH Past Medical History Attestation statement: The following information was validated with the patient. Source: old records reviewed and nursing notes reviewed Medical History Hx of cardiac pacemaker IBS (irritable bowel syndrome) Osteoarthritis AAA (abdominal aortic aneurysm) CAD (coronary artery disease) HTN (hypertension) Diabetes Abdominal aortic aneurysm (AAA) 3.0 cm to 5.5 cm in diameter in male Surgical History Hx of left inguinal hernia repair Hx of arthroscopy of knee H/O colonoscopy Status post double vessel coronary artery bypass Family History Family History Mother Alzheimer disease Mental health disorder Father No problems noted. 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 Cognitive needs: No Hearing needs: No Vision needs: Yes (glasses) Physical Exam Vital Signs: Vital Signs: Last Vital Signs Temp 98 F 05/06/24 13:50 Pulse 59 05/06/24 13:50 Resp 19 05/06/24 13:50 BP 122/64 05/06/24 13:50 Pulse Ox 98 05/06/24 13:50 O2 Del Method Room Air 05/06/24 13:50 BMI result Body Mass Index 30.0 Const: General: cooperative, healthy appearing, comfortable and no acute distress Orientation/consciousness: patient oriented x3 Limitations: no limitations HEENT: Head: Yes normal to inspection, No Calle's sign and No raccoon eyes Ears: hearing grossly normal bilaterally and TM's normal bilaterally General nose exam: Normal external nose present Face and sinus: Yes normal facial exam Mouth: Normal oral and palatal mucosa present Throat: Yes posterior oropharynx normal Eyes: General: appearance normal, both eyes and all related structures Pupils: Equal, round and reactive pupils present Neck: Other: No cervical midline tenderness, step offs or deformities Neck: Yes normal visual inspection and Yes full ROM Chest: Chest palpation & inspection: normal inspection of the chest Resp: Effort & Inspection: normal respiratory effort Auscultation: clear to auscultation bilaterally Cardio: Rate: regular rate Rhythm: regular rhythm Peripheral pulses: Peripheral pulses 2+ throughout GI: Inspection: Yes normal to inspection Palpation (GI): Soft to palpation and nontender Auscultation: normal bowel sounds Back/Spine/Pelvis: Other: TTP to left posterior thoracic wall with no ecchymosis, crepitus or deformity. No midline TTP over spine, no step offs or deformities Thoracic/Lumbar Spine: thoracic and lumbar spine normal to inspection Skin: General skin exam: no rashes or lesions noted Neuro: General: patient oriented x3, moves all extremities, no focal motor deficits and normal sensation to monofilament Cranial nerves: Yes CN's II-XII intact bilaterally, Yes Equal, round and reactive pupils present, Yes Bilaterally intact EOM present, Yes Nystagmus not present, Yes Normal facial strength present and Yes Midline tongue present Cognition (Neuro): normal cognition Speech: No Abnormal speech present Gait exam (Neuro): Normal gait present Motor exam (neuro): 5/5 motor strength present throughout Sensory Exam: Normal double simultaneous stimulation for sensation Extrem: General: Yes normal to inspection Course Course Course Narrative: This is an RME: Additional HPI, ROS, PE not included below will be deferred to primary provider. RME assessment and note performed by: Jazmín Calles PA-C This is a [id number]-male, with a hx of diabetes, who presents to the ER with complaints of left sided rib and back pain s/p mechanical fall which occurred this morning. Patient reports that he was outside, and slipped and fell backwards onto his left ribs, and left side of his back. Denies hitting his head or LOC. He is not on anticoagulation. Patient with tenderness palpation along the left ribs, and left lumbar paraspinous muscles. Plan: X-rays, further ER evaluation needed. Reevaluation(s) Reevaluation #1: X-ray show single rib fracture with no evidence of PTX. No hypoxia, pain well controlled. Given IS and sent home with rx for oxycodone. Reviewed worrisome signs/symptoms with patient and when to seek additional care. Comfortable with plan for discharge home. Medical Decision Making Medical Decision Making MDM Narrative: 58yo male with history of IDDM, HTN, HLD here with complaints of left mid back pain after a slip and fall landing on the edge of a stair just [employer]. Denies hitting head or LOC. Has some pain with taking deep breaths and has mild SOB. NO abdominal pain, vomiting, headache, neck pain, vision changes or cough. TTP over left posterior mid thoracic area. LS CTA Will check x-rays Differential Diagnosis Differential Diagnoses: The differential diagnosis associated with the presentation includes rib fracture, contusion, PTX NO CVAT/AP, diminished BS or abnormal VS to suggest intra-abdominal or intrathoracic pathology Admission/Observation Consideration of admission/observation: Escalation of care including admission/observation considered Single non displaced rib fracture with no hypoxia or tachypnea, pain well controlled, no evidence of organ injury to suggest need for advanced imaging, labs and or transfer vs admission Independent Interpretation I performed an independent interpretation of an: Plain X-Ray Interpretation: I independently reviewed the x-ray and agree with rad report Radiology Impression Discussion of test interpretation with radiology: I have reviewed the radiologist's reading. Radiologist Impression: [address] [address] XRay Report Signed Patient: Vinh Pool MR#: [id number] : 1965 Acct:[id number] Age/Sex: 58 / M ADM Date: 05/06/24 Loc: HO.ED Attending Dr: Ordering Physician: Jazmín Calles Date of Service: 05/06/24 Procedure(s): XR ribs LT min 3V w CXR1V Accession Number(s): [id number] cc: Jazmín Calles; Benedicto Kay MD~ EXAMINATION: XR RIBS 3 VIEWS MINIMUM WITH CHEST LEFT HISTORY: pain s/p fall COMPARISON: Comparison is made with the prior examination of the chest dated 06/29/2022. FINDINGS: A single PA view of the chest and 6 views left ribs are submitted. A left subclavian pacemaker is unchanged in position. The lungs are expanded and clear. There is no pleural effusion, pneumothorax, or pulmonary vascular congestion. The heart is normal in size. One of the views demonstrates a probable nondisplaced fracture of the left 11th rib. XR/XR ribs LT min 3V w CXR1V IMPRESSION: Probable nondisplaced fracture of the left 11th rib. Electronically signed by: Matheus Spivey MD 05/06/2024 11:[address] [facility] [address] [address] XRay Report Signed Patient: Vinh Pool MR#: [id number] : 1965 Acct:[id number] Age/Sex: 58 / M ADM Date: 05/06/24 Loc: .ED Attending Dr: Ordering Physician: Jazmín Calles Date of Service: 05/06/24 Procedure(s): XR lumbar spine 2-3V Accession Number(s): [id number] cc: Jazmín Calles; Benedicto Kay MD~ EXAMINATION: XR LUMBAR SPINE 2-3 VIEWS HISTORY: pain s/p fall COMPARISON: There are no prior studies for comparison. FINDINGS: AP, lateral, and coned down views of the lumbar spine are submitted. Osseous mineralization is normal. Five nonrib-bearing lumbar vertebral bodies are identified, maintaining normal height and alignment without evidence of fracture or spondylolisthesis. There is mild degenerative disc disease with disc space narrowing and osteophyte formation. The posterior elements are intact. There is calcification of the abdominal aorta. XR/XR lumbar spine 2-3V IMPRESSION: No evidence of fracture of the lumbar spine. Degenerative changes as described. Electronically signed by: Matheus Spivey MD 05/06/2024 11:26 AM EST Dictated By: Patric, Independent Historian Clinical information obtained from an independent historian. History obtained from or confirmed by: Spouse Tests considered The following testing was considered but not selected: see above Prescription Management I considered prescription management with: Pain Medication Discharge Plan Discharge Clinical Impression: Closed rib fracture Patient Disposition: Home, Self-Care Instructions: Rib Fracture (ED) Additional Instructions: heat or ice to the affected area No heavy lifting or bending Take Motrin or Tylenol for pain as needed. If this does not help then you have oxycodone to take as needed. Return to the emergency room for any increasing shortness of breath, fever or cough use the incentive spirometer every hour while awake Prescriptions: New oxycodone 5 mg tablet 5 mg PO Q8H PRN (Reason: pain) Qty: 12 0RF Rx Instructions: Partial Fill upon patient request. No Action fluticasone propionate [Flonase Allergy Relief] 50 mcg/actuation spray,suspension 1 spray intranasal DAILY 7 Days Qty: 150 0RF Rx Instructions: administer into each nostril metoprolol tartrate 25 mg tablet 25 mg PO BID Qty: 180 3RF atorvastatin 80 mg tablet 80 mg PO DAILY Qty: 90 8RF (DME) FreeStyle Gaston 14 Day Sensor Kit See Rx Instructions topical .MEDSUPPLY Qty: 1 Rx Instructions: As directed (DME) blood pressure test kit-large Kit See Rx Instructions .Route Qty: 1 0RF Rx Instructions: As directed insulin glargine 100 unit/mL (3 mL) insulin pen 40 unit subcut BEDTIME Qty: 15 6RF insulin lispro [Humalog KwikPen Insulin] 100 unit/mL insulin pen 1 sliding scale dose subcut TID Qty: 15 8RF sildenafil [Viagra] 50 mg tablet 50 mg PO DAILY PRN (Reason: sexual activity) Qty: 30 3RF Rx Instructions: administer 30 minutes to 4 hours before activity cetirizine [Zyrtec] 10 mg tablet 10 mg PO DAILY PRN (Reason: allergy symptoms) Qty: 30 0RF famotidine 20 mg tablet 20 mg PO BEDTIME Qty: 30 0RF Referrals: Benedicto Kay MD [Primary Care Provider] - 1 week Print Language: Syrian
[2024-05-06 13:50] VITALS: BP 122/64; PULSE 59; RESP 19; TEMP 36.6; O2SAT 98
[2024-05-06 14:05] VITALS: BP 122/64; PULSE 59; RESP 19; TEMP 36.6; O2SAT 98
== END 2024-05-06 14:05 | disposition home or self-care (01) ==
PROVIDERS: Emergency Provider Emergency Medicine; PCP Internal Medicine
DX: S22.32XA Fracture of one rib, left side, initial encounter for closed fracture (principal); W19.XXXA Unspecified fall, initial encounter; Y93.9 Activity, unspecified; Y92.9 Unspecified place or not applicable; Y99.9 Unspecified external cause status; M54.9 Dorsalgia, unspecified
CPT/HCPCS: 71101; 72100; 94010; 99282; 99283

== ENCOUNTER → 2024-05-06 11:07 | Outpatient (BNV) | payer BC, SELFPAY | PROVIDERS: PCP Internal Medicine; Visit Provider Radiology Diagnostic Radiology | DX: M54.6 Pain in thoracic spine (principal); R06.02 Shortness of breath | CPT/HCPCS: 71101; 72100 ==

== ENCOUNTER 2024-06-10 10:57 | Outpatient (AMB) | payer BC, SELFPAY ==
[2024-06-10 11:08] VITALS: BP 132/78; PULSE 75; O2SAT 97
--- NOTE | 2024-06-10 11:08 | MHC.PC.OV ---
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 Required: No Accompanied by: Self / Same As Patient Allergies No Known Allergies [No Known Allergies*] Allergy (Verified 06/10/24 11:09) Medication List - Last Reconciled 06/11/24 by Benedicto Kay MD aspirin (Adult Aspirin Regimen) 81 mg PO DAILY atorvastatin 80 mg PO DAILY blood pressure test kit-large As directed flash glucose sensor As directed insulin aspart U-100 (Novolog FlexPen U-100 Insulin aspart) 1 sliding scale dose subcut USEASDIRECTD insulin glargine 40 units (0.4 mL) subcut BEDTIME metoprolol tartrate 25 mg PO BID Tobacco use date assessed: 06/10/24 Dental Screening Dental Screen Date: 06/10/24 Did you have a dental visit in the last 12 months?: Yes Did you have a dental problem in the last 6 months where you did not have access to dental care?: No Was dental information given to patient?: Patient has dentist HPI Annual Exam HPI Details DM HTN and hyperlip; sees endo for DM; poor diet and high A1C PFSH Medical History (Updated 06/10/24 @ 12:53 by Benedicto Kay MD) Hx of cardiac pacemaker IBS (irritable bowel syndrome) Osteoarthritis AAA (abdominal aortic aneurysm) CAD (coronary artery disease) HTN (hypertension) Diabetes Abdominal aortic aneurysm (AAA) 3.0 cm to 5.5 cm in diameter in male Surgical History Hx of left inguinal hernia repair Hx of arthroscopy of knee H/O colonoscopy Status post double vessel coronary artery bypass Family History Mother Alzheimer disease Mental health disorder Father No problems noted. 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 1. Little interest or pleasure in doing things: not at all 2. Feeling down, depressed, or hopeless: not at all 3. Trouble falling or staying asleep, or sleeping too much: not at all 4. Feeling tired or having little energy: not at all 5. Poor appetite or overeating: not at all 6. Feeling bad about yourself - or that you are a failure or have let yourself or your family down: not at all 7. Trouble concentrating on things, such as reading the newspaper or watching television: not at all 8. Moving or speaking so slowly that other people could have noticed. Or the opposite - being so fidgety or restless that you have been moving around a lot more than usual: not at all 9. Thoughts that you would be better off or of hurting yourself in some way: not at all Total score: 0 Depression Screening Interpretation: Negative Depression Screening Done: Yes 96767 - PHQ-9 Billing: Yes Source: Developed by Drs. Matheus House, Conchita Jacome, Gutierrez Dorado and colleagues, with an educational lee ann from [employer]. Thrive Questionnaire Date Thrive assessed: 06/10/24 I am a: Patient What is your living situation today?: I have a steady place to live Within the past 12 months, did the food you bought not last and you didn't have the money to get more?: Never true Within the past 12 months, did you worry whether your food would run out before you got money to buy more?: Never true Do you have trouble paying for medicines?: No Do you have trouble getting transportation to medical appointments?: No Do you have trouble paying your heating and electricity bill?: No Do you have trouble taking care of your child, family member or friend?: No Do you have trouble with day-to-day activities such as bathing, preparing meals, shopping, managing finances, etc.?: No Are you currently unemployed and looking for a job?: No Are you interested in more education?: No Currently or been in a relationship where the following occur: No concerns reported THRIVE Score: 0 AUDIT C Alcohol Use Questionnaire (AUDIT-C) 1. How often do you have a drink containing alcohol?: Never Total Score: 0 Score Reviewed/Action Taken: Yes JAMSHID-7 AMB Questionnaire JAMSHID-7 Date JAMSHID - 7 assessed: 06/10/24 Feeling nervous, anxious, or on edge: 0 = Not at all Not being able to stop or control worryin = Not at all Worrying too much about different things: 0 = Not at all Trouble relaxin = Not at all Being so restless that it is hard to sit still: 0 = Not at all Becoming easily annoyed or irritable: 0 = Not at all Feeling afraid as if something awful might happen: 0 = Not at all Total JAMSHID-7 score (0-4 normal; 5-9 mild; 10-14 moderate; 15-21 severe): 0 Source: Developed by Drs. Matheus House, Conchita Jacome, Gutierrez Dorado and colleagues, with an educational lee ann from [employer]. Review of Systems Const Denies chills, Denies fatigue, Denies headache(s) and Denies weight loss Eyes Denies change in vision, Denies diplopia and Denies eye pain ENT Reports Normal hearing present, Denies vertigo, Denies dizziness, Denies headache(s) and Denies nasal discharge Card Denies chest pain, Denies rapid heart rate and Denies dyspnea on exertion Resp Denies chest congestion, Denies cough, Denies pain with cough and Denies dyspnea on exertion GI Denies abdominal pain, Denies hematochezia and Denies change in bowel habits Musc Denies myalgias, Denies arthralgias and Denies joint swelling Skin/Breast Denies lesions and Denies unusual bruising Neuro Reports Normal hearing present, Denies vertigo, Denies dizziness, Denies headache(s) and Denies focal weakness Endo Denies fatigue Physical exam (Primary Care) Vital Signs: Last Vital Signs Pulse 75 06/10/24 11:08 BP 132/78 06/10/24 11:08 Pulse Ox 97 06/10/24 11:08 Oxygen Delivery Method Room Air 06/10/24 11:08 BMI result Body Mass Index 30.0 Tobacco/Smoking Status: Tobacco use Status Tobacco use date assessed 06/10/24 06/10/24 11:10 Patient Tobacco Use Status Never used Tobacco 06/10/24 11:10 Tobacco use type Cigarette 06/10/24 11:10 e-Cigarette/Vaping Use Never Used 06/10/24 11:10 PHQ-9: PHQ-9 Score PHQ-9: Total score 0 06/10/24 11:38 Depression Screening Interpretation: Negative Thrive Assessment: Date of Thrive Assessment Date Thrive assessed 06/10/24 06/10/24 11:10 Currently or been in a relationship where the following occur: No concerns reported Const General: cooperative, healthy appearing and no acute distress Orientation/consciousness: oriented to person, oriented to place and oriented to time HENMT Head: Yes normal to inspection, Yes normocephalic and Yes atraumatic Mouth: Normal oral and palatal mucosa present and tongue normal Throat: Yes posterior oropharynx normal and Yes uvula midline Eyes General: appearance normal, both eyes and all related structures Neck Neck: Yes normal visual inspection, Yes full ROM and Yes no lymphadenopathy Thyroid: Thyroid normal Carotids: normal carotid upstroke Chest Chest palpation & inspection: normal inspection of the chest Resp Effort & Inspection: normal respiratory effort and able to speak in complete sentences Auscultation: clear to auscultation bilaterally Cardio Jugular venous distension: no JVD Palpation: normal PMI Rate: regular rate Rhythm: regular rhythm Heart sounds: S1 normal heart sound present and S2 normal heart sound present GI Inspection: Yes normal to inspection Palpation (GI): Soft to palpation and No hepatosplenomegaly present Auscultation: normal bowel sounds General: Yes no CVA tenderness Back/Spine/Pelvis Back: no CVA tenderness Skin General skin exam: no rashes or lesions noted Neuro General: oriented to person, oriented to place and oriented to time Cranial nerves: Yes Normal hearing present Extrem General: Yes normal to inspection and Yes full ROM Results AMB Hemoglobin A1c AMB Hemoglobin A1c 8.8 % Last Edit by Melody Walden CMA on 06/10/24 11:26 Results Reviewed Results Reviewed: Laboratory Last Values Hgb A1c (Clinic) 8.8 % (4.0-6.0) H 06/10/24 11:10 Coding Level of Care Code Est Pt Prev Care 40-64y(70083) Diagnoses Physical exam Z00.00 Diabetes mellitus with coincident hypertension E11.9; I10 Hyperlipidemia E78.5 HTN (hypertension) I10 Additional Codes PHQ-9 - 72383 - PHQ-9 Billing: Yes ([id number]) Assessment & Plan Assessment & Plan (1) Physical exam: Code(s): Z00.00 - Encounter for general adult medical examination without abnormal findings Category: Medical Plan: stable (2) Diabetes mellitus with coincident hypertension: Code(s): E11.9 - Type 2 diabetes mellitus without complications; I10 - Essential (primary) hypertension Category: Medical Plan: f/u per endo (3) Hyperlipidemia: Code(s): E78.5 - Hyperlipidemia, unspecified Category: Medical Plan: stable; same rx (4) HTN (hypertension): Code(s): I10 - Essential (primary) hypertension Category: Medical Plan: stable; same rx Orders: Orders AMB Hemoglobin A1c 06/10/24 Z13.9 - Encounter for screening, unspecified Comprehensive [place]. Panel Fast 06/10/24 Z13.9 - Encounter for screening, unspecified US abdomen complete 06/10/24 I71.40 - Abdominal aortic aneurysm, without rupture, unspecified Lipid Panel 06/10/24 Z13.220 - Encounter for screening for lipoid disorders Complete Blood Count Auto Diff 06/10/24 Z13.0 - Encounter for screening for diseases of the blood and blood-forming organs and certain disorders involving the immune mechanism
--- OUTSIDE RECORDS SUMMARY | 2024-06-10 12:34 | XMS_ITS ---
Author Organization [facility] Address [address] [place] [address] Care Team Providers Care Prover Name Role Phone Benedicto Kay MD Primary Care Provider Unavaila Lili Schulz [phone] REASON FOR VISIT M[employer] cx 01/04 Encounters Encounter Location Date Provider Diagnosis [facility] [address] [place] [address] 01/02/2023 Lili Hester Plan Of Treatment No Information Progress Notes * Vinh POOL KDOB: 4 (57 yo M)Acc No.[id number]:01/02/2023 Patient:?Vinh Pool :1965???Age:57 Y???Sex:Male Address:[address] [place] [address], [address] * true * Date:? Generated for Jose Cruzi jovanna/Christian/eTransmitting on:?06/10/2024 12:34 PM EST
--- OUTSIDE RECORDS SUMMARY | 2024-06-10 12:34 | XMS_ITS | Patient Health Record ---
Author Organization [facility] Address [address] [place] [address] Care Team Providers Care Project Management Analyst Name Role Phone Benedicto Kay MD Primary Care Provider Unavaila yoel Hester Lili Unavailable [phone] Reason For Referral No Information Medications Medication SIG (Take, Route, Frequency, Duration) Notes Start Date End Date Status Losartan Potassium N ot-Taking Atorvastatin Calcium 80 MG 1 tablet Orally Once a day Active Aspirin 81 MG 1 tablet Orally Once a day Active Fluticasone Propionate 50 MCG/ACT 1 spray in each nostril Nasally Once a day Active Blood Pressure Kit - as directed Active Insulin Lispro 100 UNIT/ML as directed Subcutaneous Act shamika Insulin Glulisine Ac tive Metoprolol Tartrate 25 MG as directed Active Social History Tobacco Use: Social History Observation Description Date Details (start date - stop date) Never Smoker NA - NA Tobacco Use/Smoking Question Answer Notes Are you a: nonsmoker Additional Findings: Tobacco Non-User Current no n-smoker Alcohol Screen Question Answer Notes Did you have a drink containing alcohol in the p ast year? No Points 0 Interpretation Negative Tobacco use other than smoking: Question Answer Notes Are you an other tobacco user? No Plan Of Treatment No Information Insurance Providers Payer Name Payer Address Payer Phone Subscriber Number Group Number Insured Name Patient Relationship to Insured Coverage Start Date Coverage End Date Cigna [address] [place], [place] [phone] Vinh Pool Self - patient is the insured Medical (General) History Medical History History ICD Code abdominal aortic aneurysm flash glucose sensor Hypertension Hyperlipidemia Diabetes mellitus Surgical History Surgery Date(Month/Year) coronary artery bypass 09/08/2022
--- OUTSIDE RECORDS SUMMARY | 2024-06-10 12:34 | XMS_ITS ---
Author Organization [facility] Address [address] [place] [address] Care Team Providers Care Acid Extractor Name Role Phone Benedicto Kay MD Primary Care Provider Lili Pfeiffer [phone] Medications Medication SIG (Take, Route, Frequency, Duration) Notes Start Date End Date Status Atorvastatin Calcium 80 MG 1 tablet Orally Once a day Active Aspirin 81 MG 1 tablet Orally Once a day Active Fluticasone Propionate 50 MCG/ACT 1 spray in each nostril Nasally Once a day Active Blood Pressure Kit - as directed Active Insulin Glulisine Ac tive Losartan Potassium N ot-Taking Insulin Lispro 100 UNIT/ML as directed Subcutaneous Act shamika Metoprolol Tartrate 25 MG as directed Active [...] Are you an other tobacco user? No Vital Signs Height 6ft 0in in 01/04/2023 Weight 217 lbs 01/04/2023 BMI 29.43 kg/m2 01/04/2023 Blood pressure systolic 128 mm Hg 01/05/20 23 Blood pressure diastolic 76 mm Hg 023 Heart Rate 85 /min 01/04/2023 Oximetry 98 % 01/04/2023 Encounters Encounter Location Date Provider Diagnosis [facility] [address] [place] [address] 01/04/2023 Lili Hester Plan Of Treatment No Information Progress Notes * Vihn POOL KDOB: [birth year] (59 yo M)Acc No.[id number]:01/04/2023 Progress Notes Patient:?Vinh POOL Provider:?Lili Hester DPM :1965???Age:57 Y???Sex:Male Russel e:01/04/2023 Address:[address] [place], [place] [address] Pcp:Benedicto Kay MD Subjective: * Chief Complaints: * ??? * ROS:?General/Constitutional:?Nausea?denies.?Vomiting?denies.?Hunger Thirst?denies.?Loss appetite?denies.?Chills?denies.?Fatigue?denies.?Fever?denies.?Night Sweats?denies.?Unexplained weight loss?denies.?Unexplained weight gain?denies.?HEENTM:?Dentures?denies.?Dizziness?denies.?Glasses/contacts?admits.?Retinopathy?de nies.?Blurred/double vision?denies.?TMJ?denies.?Discharge/drainage?denies.?Implants?denies.?Sore throat?denies.?Dental implants?denies.?Hard of hearing ?denies.?Difficulty chewing/swallowing/speaking?denies.?Nose bleeds?denies.?Sore mouth?denies.?Respiratory:?On Oxygen?denies.?Pneumonia/pleurisy?denies.?Bronchitis?denies.?Emphysema?denies.?C oughing?denies.?Cough blood?denies.?Shortness of breath?denies.?Wheezing?denies.?Cardiovascular:?Pacemaker?denies.?MVP?denies.?WPW?denies.?CHF?denies.?Heart attack?denies.?Septal defect?denies.?Rapid beat?denies.?Chest pain ?denies.?Atrial Fib.?denies.?Murmur/Palpitations?denies.?Gastrointestinal:?Hemorrhoids?denies.?Stomach/Abdominal pain?denies.?Dark blood stool?denies.?Irritable bowel ?denies.?Constipation?denies.?Diarrhea?denies.?Hematology:?Swelling?denies.?Clots?denies.?Varicose Veins?denies.?Bruising?denies.?Bleeding problem?denies.?Genitourinary:?Blood urine?denies.?Frequent/Painfu/urination/bladder control?denies.?Kidney stones?denies.?Infection (UTI)?denies.?Nephropathy?denies.?sex trans dis (STD)?denies.?Prostate?denies.?Musculoskeletal:?Hammertoes?denies.?Bunions?denies.?Back Pain?denies.?Muscle Cramps/ Resting?denies.?Muscle cramps / walking?denies.?Generalized aches and pains?denies.?Weakness?denies.?Integ.:?Merida?denies.?Scars?denies.?Corns/calluses?denies.?Ingrown nails?denies.?Painful nails?denies.?Open Sores?denies.?Rashes?denies.?Neurologic:?Difficulty sleeping?denies.?Brain disorder?denies.?Numbness?denies.?Balance trouble?denies.?Confusion?denies.?Fainting/blackouts?denies.?Tingling?denies.?Tr emors?denies.? * Medical History:?Abdominal a ortic aneurysm, Flash glucose sensor, Hypertension, Hyperlipidemia, Diabetes mellitus. * Surgical History:?coronary a rtery bypass 09/08/2022. * Family History:?Mother: aliv e, Alzheimer disease, diagnosed with Other specified conditions influencing health status, Unspecified nonpsychotic mental disorder following organic brain damage.?Father: .? 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 * Medications:?Taking Metoprol ol Tartrate 25 MG Tablet as directed , Taking Insulin Lispro 100 UNIT/ML Solution Cartridge as directed Subcutaneous , Taking Insulin Glulisine , Taking Fluticasone Propionate 50 MCG/ACT Suspension 1 spray in each nostril Nasally Once a day , Taking Blood Pressure Kit - Device as directed , Taking Atorvastatin Calcium 80 MG Tablet 1 tablet Orally Once a day , Taking Aspirin 81 MG Tablet Chewable 1 tablet Orally Once a day , Not-Taking/PRN Losartan Potassium Objective: * Vitals:?Ht: 6ft 0in, Wt:217, BMI:29.43, BP:128/76mm Hg, HR:85/min, Oxygen sat %:98%, Ht-cm: 182.88 cm, Wt-k.43 kg. Assessment: Plan: * Treatment: * Images: * The named appointment provid er may or may not be the originator of this progress note, and it is not deemed complete until electronically signed by the appointment provider. Sign off status: Pending * Provider:?Lili Hester DPM Date:? Generated for Diaz nugent/Christian/Ginette on:?06/10/2024 12:33 PM EST
--- OUTSIDE RECORDS SUMMARY | 2024-06-10 12:34 | XMS_ITS ---
Author Organization [facility] Address [address] [place] [address] Care Team Providers Care Audiologist Name Role Phone Benedicto Kay MD Primary Care Provider Matheus Montgomery Unavailable [phone] ALLERGIES No Known Allergies REASON FOR VISIT Patient presents today for a recall colonoscopy MEDICATIONS Medication SIG (Take, Route, Frequency, Duration) Notes Start Date End Date Status Metoprolol Succinate 50 MG 1 capsule Orally Once a day for 30 day(s) Active Lantus 100 UNIT/ML 40 units as directed Subcutaneous QHS Active Lipitor 80 MG 1 tablet Orally Once a day for 30 day(s) Active HumaLOG 100 UNIT/ML as directed Subcutan eous daily Active SOCIAL HISTORY Tobacco Use: Social History Observation Description Date Details (start date - stop date) Former Smoker NA - NA Sex Assigned At : Social History Observation Description Sex Assigned At Unknown Tobacco Use/Smoking Question Answer Notes Patient is a former smoker How long has it been since you last smoked? > 10 years Alcohol Screen Question Answer Notes Did you have a drink containing alcohol in the p ast year? No Points 0 Interpretation Negative PROBLEMS Problem Type ICD Code Onset Dates Problem Status W/U Status Risk SNOMED Code Notes Problem History of adenomatous polyp of colon (Z86.010) Active confirmed History of adenomatous polyp of colon (146885041) Problem Irritable bowel syndrome with constipation (K58.1) Active confirmed Irritable bowel syndrome characterized by constipation (616893695) Problem Colon cancer screening (Z12.11) Active confirmed Colon cancer screening (720427087) VITAL SIGNS Temperature 97.5 degrees Fahrenheit 09/13/19 24 Blood pressure systolic 000 mm Hg 05/29/20 24 Blood pressure diastolic 00 mm Hg 024 Height 72 in 09/13/2023 Weight 224 lb 2 oz lbs 09/13/2023 BMI 30.39 kg/m2 09/13/2023 Encounters Encounter Location Date Provider Diagnosis [facility] [address] [place] [address] 09/13/2023 Matheus Nguyen History of adenomato us polyp of colon Z86.010 ; Irritable bowel syndrome with constipation K58.1 and Colon cancer screening Z12.11 ASSESSMENTS Encounter Date Diagnosis Assessment Notes Treatment Notes Treatment Clinical Notes 09/13/2023 History of adenomatous polyp of colon (ICD-10 - Z86.010) 09/13/2023 Irritable bowel syndrome with constipation (ICD-10 - K58.1) Continue the Miralax and Fiber daily 09/13/2023 Colon cancer screening (ICD-10 - Z12.11) Adjust your Insulin for the 2 days before the colonoscopy as per Dr. Kay PLAN OF TREATMENT Treatment Notes Assessment Notes Irritable bowel syndrome with constipati on Continue the Miralax and Fiber daily Colon cancer screening Adjust your Insul in for the 2 days before the colonoscopy as per Dr. Kay Future Test Test Name Order Date COLONOSCOPY 09/13/2023 Next Appt Details Follow Up: prn, Reason: Progress Notes * Examination Category Sub-Category Detail Notes General Examination GENERAL APPEARANCE: pleasant , well nourished, well developed, in no acute distress HEAD: EYES: sclera non-icteric EARS: NOSE: THROAT: NECK/THYROID: no cervical lymphade nopathy, neck supple HEART: S1, S2 normal CHEST: LUNGS: clear to auscultatio n bilaterally ABDOMEN: normal bowel sounds, no guarding or rigidity, no guarding or rigidity, no masses palpable, soft, nontender, nondistended NEUROLOGIC: alert and oriented SKIN: nonjaundiced, no spi zaira angiomata EXTREMITIES: no edema PERIPHERAL PULSES: BACK: BREASTS: MUSCULOSKELETAL: MALE GENITOURINARY: LYMPH NODES: RECTAL EXAM: FEMALE GENITOURINARY: ORAL CAVITY: mucosa moist
--- OUTSIDE RECORDS SUMMARY | 2024-06-10 12:34 | XMS_ITS ---
Author Organization [facility] Address [address] [place] [address] Care Team Providers Care Fermentation Engineer Name Role Phone Benedicto Kay MD Primary Care Provider Unavaila Matheus Carter Unavailable [phone] REASON FOR VISIT new insurance information Encounters Encounter Location Date Provider Diagnosis [facility] [address] [place] [address] 10/16/2023 Matheus Nguyen PLAN OF TREATMENT No Information
--- OUTSIDE RECORDS SUMMARY | 2024-06-10 12:34 | XMS_ITS ---
Author Organization [facility] Address [address] [place] [address] Care Team Providers Care Harness Placer Name Role Phone Rahul CAVAZOS, Benedicto Primary Care Provider Yossia yoel Hernandeztoyin Lili Unavailable [phone] Ava Adkins [phone] Encounters Encounter Location Date Provider Diagnosis [facility] [address] [place] [address] 02/06/2023 Ava Adkins Plan Of Treatment No Information Progress Notes * Vinh POOL KDOB: 4 (59 yo M)Acc No.[id number]:02/06/2023 Progress Notes Patient:?Vinh POOL Provider:?Ava Adkins DPM :1965???Age:57 Y???Sex:Male Russel e:02/06/2023 Address:[address] [place] [id number] Pcp:Benedicto Kay MD Subjective: * Chief Complaints: * ??? * Medical History:? Objective: * Vitals:? Assessment: Plan: * Treatment: * Images: * The named appointment provid er may or may not be the originator of this progress note, and it is not deemed complete until electronically signed by the appointment provider. Sign off status: Pending * Provider:Odilia Adkins DPM Date:?2022 Generated for Jose Cruzi jovanna/Famichael/eTransmitting on:?06/10/2024 12:34 PM EST
--- OUTSIDE RECORDS SUMMARY | 2024-06-10 12:35 | XMS_ITS | Patient Health Record ---
Author Organization [facility] Address [address] [place] [address] Care Team Providers Care Phone Circuit Operator Name Role Phone Benedicto Kay MD Primary Care Provider Unavaila ble Matheus Nguyen Unavailable [phone] ALLERGIES No Known Allergies RESULTS Component Value Reference Range Notes Glucose, Whole Blood Reviewed date:10/18/2023 02:23:17 PM Interpretation: Performing Lab:[facility], [address] [place] [phone] Notes/Report: Glucose, Whole Blood 217 60-115 mg/dL METER # : [id number] Pathology Reviewed date:11/07/2023 01:13:27 AM Interpretation: Performing Lab:[facility], [address] [place] [phone] Notes/Report: REASON FOR REFERRAL Referring Provider First Name Benedicto Referring Provider Last Name Rahul Referring Provider Speciality General Pr actice Referred Organization [facility] Referred Provider Matheus Nguyen Referred Address [address] [place] [address],[address],[place], [place],[address], Referred Provider Specialty Gastroentero logy General Notes Leslie Powers 024 09:52:43 AM EDT > pt called back and spoke with salazar guthrie and chose his pcp as Dr. Kay. Ref # [id number]. I then called Dr. Hector office and requested they date the referral to 10-18-2023 once the pcp is updated in the system Referral Priority Routine MEDICATIONS Medication SIG (Take, Route, Frequency, Duration) Notes Start Date End Date Status Metoprolol Succinate 50 MG 1 capsule Orally Once a day for 30 day(s) Active Lantus 100 UNIT/ML 40 units as directed Subcutaneous QHS Active Lipitor 80 MG 1 tablet Orally Once a day for 30 day(s) Active HumaLOG 100 UNIT/ML as directed Subcutan eous daily Active IMMUNIZATIONS Vaccine Route Administration Date Status Comme nts Influenza Unknown 02/07/2023 Administered Influenza Unknown 12/13/2018 Refused SOCIAL HISTORY Tobacco Use: Social History Observation [...] W/U Status Risk SNOMED Code Notes Problem Colon cancer screening (Z12.11) Active confirmed Colon cancer screening (531146236) Problem Encounter for screening for malignant neoplasm of colon (Z12.11) Active confirmed 438853206 Problem History of adenomatous polyp of colon (Z86.010) Active confirmed History of adenomatous polyp of colon (875654657) Problem Diverticulosis of large intestine without perforation or abscess without bleeding (K57.30) Active confirmed Diverticul ar disease of colon (522129596) Problem Preprocedural examination (Z01.818) Active confirmed 843014695723323 Problem Irritable bowel syndrome with constipation (K58.1) Active confirmed Irritable bowel syndrome characterized by constipation (851444816) VITAL SIGNS Temperature 97.5 degrees Fahrenheit 09/13/2023 Blood pressure diastolic 00 mm Hg 09/13/2023 Height 72 in 09/13/2023 Blood pressure systolic 000 mm Hg 09/13/2023 Weight 224 lb 2 oz lbs 09/13/2023 BMI 30.39 kg/m2 09/13/2023 Encounters Encounter Location Date Provider Diagnosis [facility] [place] [address] [place], [place] [id number] 10/18/2023 Matheus Nguyen Colon cancer screeni ng Z12.11 ; Colon polyps K63.5 ; Diverticulosis of large intestine without perforation or abscess without bleeding K57.30 and Other hemorrhoids K64.8 [facility] [address] [place] [address] 09/13/2023 Matheus Nguyen History of adenomato us polyp of colon Z86.010 ; Irritable bowel syndrome with constipation K58.1 and Colon cancer screening Z12.11 [facility] [address] [place] [address] 10/16/2023 Matheus Nguyen ASSESSMENTS Encounter Date Diagnosis Assessment Notes Treatment Notes Treatment Clinical Notes 10/18/2023 Colon cancer screening (ICD-10 - Z12.11) 10/18/2023 Colon polyps (ICD-10 - K63.5) 09/13/2023 History of adenomatous polyp of colon (ICD-10 - Z86.010) 09/13/2023 Irritable bowel syndrome with constipation (ICD-10 - K58.1) Continue the Miralax and Fiber daily 10/18/2023 Diverticulosis of large intestine without perforation or abscess without bleeding (ICD-10 - K57.30) 09/13/2023 Colon cancer screening (ICD-10 - Z12.11) Adjust your Insulin for the 2 days before the colonoscopy as per Dr. Kay 10/18/2023 Other hemorrhoids (ICD-10 - K64.8) PLAN OF TREATMENT Future Test Test Name Order Date COLONOSCOPY 12/13/2018 COLONOSCOPY 09/13/2023 Insurance Providers Payer Name Payer Address Payer Phone Subscriber Number Group Number Insured Name Patient Relationship to Insured Coverage Start Date Coverage End Date [facility] [employer] PROF[employer]AL CLAIMS [address] [place] [address] [id number] KRIS CORTES Self - patient is the insured MEDICAL (GENERAL) HISTORY Medical History History ICD Code Denies CVA,Lung disease,renal disease Hypertension IDDM [place] 2006 with stents and 2 V CABG in 2018 Screening colonoscopy in Feb with a greater than 1 cm tubular adenoma removed in the cecum; the prep was somewhat limited as well Mild irritable bowel syndrome and consti pation Surgical History Surgery Date(Month/Year) 2V CABG 05/2017 Left knee arthroscopy Right knee arthroscopy Left inguinal hernia repair Pacemaker
--- OUTSIDE RECORDS SUMMARY | 2024-06-10 12:35 | XMS_ITS ---
Author Organization [facility] Address [address] [place] [address] Care Team Providers Care Environmental Director Name Role Phone Benedicto Kay MD Primary Care Provider Unavaila Matheus Carter Unavailable [phone] REASON FOR VISIT screening, hx polyps PROBLEMS Problem Type ICD Code Onset Dates Problem Status W/U Status Risk SNOMED Code Notes Problem Diverticulosis of large intestine without perforation or abscess without bleeding (K57.30) Active confirmed Diverticul ar disease of colon (937211001) Encounters Encounter Location Date Provider Diagnosis [facility] [place] [address] [place], [place] [id number] 10/18/2023 Matheus Nguyen Colon cancer scree trent Z12.11 ; Colon polyps K63.5 ; Diverticulosis of large intestine without perforation or abscess without bleeding K57.30 and Other hemorrhoids K64.8 ASSESSMENTS Encounter Date Diagnosis Assessment Notes Treatment Notes Treatment Clinical Notes 10/18/2023 Colon cancer screening (ICD-10 - Z12.11) 10/18/2023 Colon polyps (ICD-10 - K63.5) 10/18/2023 Diverticulosis of large intestine without perforation or abscess without bleeding (ICD-10 - K57.30) 10/18/2023 Other hemorrhoids (ICD-10 - K64.8) PLAN OF TREATMENT No Information
== END 2024-06-10 11:42 | disposition home or self-care (01) ==
PROVIDERS: PCP Internal Medicine; Visit Provider Internal Medicine
DX: Z00.00 Encounter for general adult medical examination without abnormal findings (principal); E11.9 Type 2 diabetes mellitus without complications; I10 Essential (primary) hypertension; E78.5 Hyperlipidemia, unspecified

== ENCOUNTER → 2024-06-10 10:57 | Outpatient (BNVA) | payer BC, SELFPAY | PROVIDERS: PCP Internal Medicine; Visit Provider Internal Medicine | DX: Z00.00 Encounter for general adult medical examination without abnormal findings (principal); E11.9 Type 2 diabetes mellitus without complications; I10 Essential (primary) hypertension; E78.5 Hyperlipidemia, unspecified | CPT/HCPCS: 83036; 96127 ==

== ENCOUNTER 2024-06-21 09:54 | Outpatient (REF) | payer BC, SELFPAY ==
--- NOTE | ~2024-06-21 | US_ITS ---
CLINICAL HISTORY: I71.40 - Abdominal aortic aneurysm, without rupture, unspecified US ABDOMEN (AAA) Comparison: US/MS - US ABDOMINAL AORTIC ANEURYSM - 05/04/22 10:44 EST Findings: Aorta proximal 1.9 x 1.9 cm, previously 2.6 x 2.7 cm. Aorta mid 2.1 x 2.7 cm, previously 2.1 x 2.3 cm. Aorta distal 3.0 x 3.3 cm, previously 2.4 x 2.7 cm. Right common iliac artery 1.2 x 1.3 cm. Left common iliac artery 1.4 x 1.0 cm. IMPRESSION: 1. Ectatic abdominal aorta with aneurysmal distal segment measuring 3.0 x 3.3 cm, increased diameter since prior study. This document has been electronically signed by: Jennifer Phillips DO on 06/22/2024 12:25:01
--- OUTSIDE RECORDS SUMMARY | 2024-06-21 11:00 | XMS_ITS ---
Author Organization [facility] Address [address] [place] [address] Care Team Providers Care Chucking Lathe Operator Name Role Phone Rahul CAVAZOS, Benedicto Primary Care Provider Yossia yoel HernandezLili deal Unavailable [phone] Ava Adkins [phone] Encounters Encounter Location Date Provider Diagnosis [facility] [address] [place] [address] 02/06/2023 Ava Adkins Plan Of Treatment No Information Progress Notes * Vinh POOL KDOB: [birth year] (59 yo M)Acc No.[id number]:02/06/2023 Progress Notes Patient:?Vinh POOL Provider:?Ava Adkins DPM :1965???Age:57 Y???Sex:Male Russel e:02/06/2023 Address:[address] [place] [phone] Pcp:Benedicto Kay MD Subjective: * Chief Complaints: * ??? * Medical History:? Objective: * Vitals:? Assessment: Plan: * Treatment: * Images: * The named appointment provid er may or may not be the originator of this progress note, and it is not deemed complete until electronically signed by the appointment provider. Sign off status: Pending * Provider:Odilia Adkins DPM Date:?2022 Generated for Diaz nugent/Christian/eTransmitting on:?06/21/2024 10:59 AM EST
--- OUTSIDE RECORDS SUMMARY | 2024-06-21 11:00 | XMS_ITS ---
Author Organization [facility] Address [address] [place] [address] Care Team Providers Care Professor Of Industrial Technology Name Role Phone Benedicto Kay MD Primary Care Provider Unavaila Matheus Carter [phone] REASON FOR VISIT new insurance information Encounters Encounter Location Date Provider Diagnosis [facility] [address] [place] [address] 10/16/2023 Matheus Nguyen Plan Of Treatment No Information Progress Notes * KRIS CORTESDOB:1965 (58 yo M)Acc No.[id number]:10/16/2023 Patient:?KRIS CORTES :1965???Age:58 Y???Sex:Male Address:[address] , [place], [address] * true * Date:? Generated for Diaz nugent/Christian/eTransmitting on:?06/21/2024 10:59 AM EST
--- OUTSIDE RECORDS SUMMARY | 2024-06-21 11:00 | XMS_ITS | Patient Health Record ---
Author Organization [facility] Address [address] [place] [address] Care Team Providers Care Manager Search Name Role Phone Benedicto Kay MD Primary Care Provider Matheus Montgomery [phone] Allergies No Known Allergies Results Component Value Reference Range Notes Glucose, Whole Blood Reviewed date:10/18/2023 02:23:17 PM Interpretation: Performing Lab:[facility], [address] [place] [address] Notes/Report: Glucose, Whole Blood 217 60-115 mg/dL METER # : [id number] Pathology Reviewed date:11/07/2023 01:13:27 AM Interpretation: Performing Lab:[facility], [address] [place] [address] Notes/Report: ---- Name: Kris Pool Age/Sex: 58/M : 1965 Unit#: [id number] Attend Dr: Matheus Nguyen MD Re10/18/23 Status : [facility] Location: [facility] Disch: ---- SPEC : [id number] RECD : 10/18/23 STATUS: RUI ZHU NUM: [id number] AMANDA: 10/18/23-7 [facility] DR: Matheus Nguyen MD ENTERED: 10/18/23 19 SP TYPE: Surgical OTHR DR: Benedicto Kay MD ORDERED: HE Stain/3, Gross Micro L4 Diagnosis Cecum, polypectomy: Fragments of tubular adenoma; negative for high-grade dysplasia or carcinoma. Clinical History Pre-Op Dx: Screening Post-Op Dx: Colon po lyp, diverticulosis, hemorrhoids Microscopic Description Microscopic sections reviewed. Material Received Cecal polyp Gross Description Received in formalin labeled ?cecal polyp? are 2 sebastian-pink papular and velvety, lobular polypoid sebastian-pink an d pink-red tissue fragments measuring 0.25 and 0.9 cm in greatest dimension. The base of the larger fragment is inked and the specimen is sectioned and entirely submitted a long with smaller tissue fragment submitted in toto in a cassette labeled A. CEDS Copies To: Benedicto Kay MD [address] [place] [address] Matheus Nguyen MD [facility] [address] [place] [address] ---- Signed (signature on file) Jose Solorio MD 10/20/23 1543 ---- END OF REPORT Reason For Referral Referring Provider First Name Benedicto Referring Provider Last Name Rahul Referring Provider Speciality General Pr actice Referred Organization [facility] Referred Provider Matheus Nguyen Referred Address [address] [place] [address],[facility] [address],[place],[address], Referred Provider Specialty Gastroentero logy General Notes Rio,Leslie 024 09:52:43 AM EDT > pt called back and spoke with salazar guthrie and chose his pcp as Dr. Kay. Ref # [id number]. I then called Dr. Hector office and requested they date the referral to 10-18-2023 once the pcp is updated in the system Referral Priority Routine Medications Medication SIG (Take, Route, Frequency, Duration) Notes Start Date End Date Status Metoprolol Succinate 50 MG 1 capsule Orally Once a day for 30 day(s) Active Lantus 100 UNIT/ML 40 units as directed Subcutaneous QHS Active Lipitor 80 MG 1 tablet Orally Once a day for 30 day(s) Active HumaLOG 100 UNIT/ML as directed Subcutan eous daily Active Immunizations Vaccine Route Administration Date Status Comme nts Influenza Unknown 02/07/2023 Administered Influenza Unknown 12/13/2018 Refused Social History Tobacco Use: Social History Observation Description Date Details (start date - stop date) Former Smoker NA - NA Tobacco Use/Smoking Question Answer Notes Patient is a former smoker How long has it been since you last smoked? > 10 years Alcohol Screen Question Answer Notes Did you have a drink containing alcohol in the p ast year? No Points 0 Interpretation Negative Section Notes: Nonsmoker; no alcohol Nonsmoker; no alcohol Problems Problem Type SNOMED Code ICD Code Onset Dates Problem Status W/U Status Risk Notes Problem Colon cancer screening (595953945) Colon cancer screening (Z12.11) Active confirmed Problem 083592529 Encounter for screening for malignant neoplasm of colon (Z12.11) Active confirmed Problem History of adenomatous polyp of colon (453094731) History of adenomatous polyp of colon (Z86.010) Active confirmed Problem Diverticular disease of colon (747592533) Diverticulosis of large intestine without perforation or abscess without bleeding (K57.30) Active confirmed Problem 902744196425124 Preprocedural examination (Z01.818) Active confirmed Problem Irritable bowel syndrome characterized by constipation (258632545) Irritable bowel syndrome with constipation (K58.1) Active confirmed Vital Signs Temperature 97.5 degrees Fahrenheit 09/13/2023 Blood pressure diastolic 00 mm Hg 09/13/2023 Height 72 in 09/13/2023 Blood pressure systolic 000 mm Hg 09/13/2023 Weight 224 lb 2 oz lbs 09/13/2023 BMI 30.39 kg/m2 09/13/2023 Encounters Encounter Location Date Provider Diagnosis [facility] [address] [place] [phone] 10/18/2023 Matheus Nguyen Colon cancer screeni ng Z12.11 ; Colon polyps K63.5 ; Diverticulosis of large intestine without perforation or abscess without bleeding K57.30 and Other hemorrhoids K64.8 [facility] [address] [address] 09/13/2023 Matheus Nguyen History of adenomato us polyp of colon Z86.010 ; Irritable bowel syndrome with constipation K58.1 and Colon cancer screening Z12.11 [facility] [address] [address] 10/16/2023 Matheus Nguyen Assessments Encounter Date Diagnosis (ICD Code) Assessment Notes Treatment Notes Treatment Clinical Notes Section Notes 10/18/2023 Colon cancer screening (ICD-10 - Z12.11) 10/18/2023 Colon polyps (ICD-10 - K63.5) 09/13/2023 History of adenomatous polyp of colon (ICD-10 - Z86.010) Overall, Kris appears quite well. His previous issue with constipation and some mild irritable bowel type symptoms has improved with the use of daily MiraLax and fiber. As such, I did advise him to continue this on a long-term basis. I did recommend a followup colonoscopy given the fairly sizable polyp removed in 2019 and no followup exam since then. I did review the rationale for that regard to colon cancer prevention. We will have a 2 day prep for the procedure given the somewhat limited prep in 2019. Full consent was obtained for the colonoscopy, including risks of bleeding and perforation. The procedure will be done with monitored anesthesia care. I did advise him to speak with you without any adjustments for his insulin regimen for the 2 days prior to the colonoscopy. Kris was comfortable with this plan. Thank you again for allowing me to participate in Kris's care. I shall continue to keep you advised of this progress. 09/13/2023 Irritable bowel syndrome with constipation (ICD-10 - K58.1) Continue the Miralax and Fiber daily Overall, Kris appears quite well. His previous issue with constipation and some mild irritable bowel type symptoms has improved with the use of daily MiraLax and fiber. As such, I did advise him to continue this on a long-term basis. I did recommend a followup colonoscopy given the fairly sizable polyp removed in 2019 and no followup exam since then. I did review the rationale for that regard to colon cancer prevention. We will have a 2 day prep for the procedure given the somewhat limited prep in 2019. Full consent was obtained for the colonoscopy, including risks of bleeding and perforation. The procedure will be done with monitored anesthesia care. I did advise him to speak with you without any adjustments for his insulin regimen for the 2 days prior to the colonoscopy. Kris was comfortable with this plan. Thank you again for allowing me to participate in Kris's care. I shall continue to keep you advised of this progress. 10/18/2023 Diverticulosis of large intestine without perforation or abscess without bleeding (ICD-10 - K57.30) 09/13/2023 Colon cancer screening (ICD-10 - Z12.11) Adjust your Insulin for the 2 days before the colonoscopy as per Dr. Kay Overall, Kris appears quite well. His previous issue with constipation and some mild irritable bowel type symptoms has improved with the use of daily MiraLax and fiber. As such, I did advise him to continue this on a long-term basis. I did recommend a followup colonoscopy given the fairly sizable polyp removed in 2019 and no followup exam since then. I did review the rationale for that regard to colon cancer prevention. We will have a 2 day prep for the procedure given the somewhat limited prep in 2019. Full consent was obtained for the colonoscopy, including risks of bleeding and perforation. The procedure will be done with monitored anesthesia care. I did advise him to speak with you without any adjustments for his insulin regimen for the 2 days prior to the colonoscopy. Kris was comfortable with this plan. Thank you again for allowing me to participate in Kris's care. I shall continue to keep you advised of this progress. 10/18/2023 Other hemorrhoids (ICD-10 - K64.8) Plan Of Treatment Future Test Test Name Order Date COLONOSCOPY 12/13/2018 COLONOSCOPY 09/13/2023 Insurance Providers Payer Name Payer Address Payer Phone Subscriber Number Group Number Insured Name Patient Relationship to Insured Coverage Start Date Coverage End Date [facility] [employer] PROFESSIONAL CLAIMS [address] [place] [address] [id number] KRIS POOL Self - patient is the insured Medical (General) History Medical History History ICD Code Denies CVA,Lung disease,renal disease Hypertension IDDM OR 2006 with stents and 2 V CABG in 2017 Screening colonoscopy in Feb with a greater than 1 cm tubular adenoma removed in the cecum; the prep was somewhat limited as well Mild irritable bowel syndrome and consti pation Surgical History Surgery Date(Month/Year) 2V CABG 05/2017 Left knee arthroscopy Right knee arthroscopy Left inguinal hernia repair Pacemaker
--- OUTSIDE RECORDS SUMMARY | 2024-06-21 11:00 | XMS_ITS ---
Author Organization [facility] Address [address] [place] [address] Care Team Providers Care Android Platform Developer Name Role Phone Benedicto Kay MD Primary Care Provider Unavaila Matheus Carter Unavailable [phone] REASON FOR VISIT screening, hx polyps Problems Problem Type SNOMED Code ICD Code Onset Dates Problem Status W/U Status Risk Notes Problem Diverticular disease of colon (972627754) Diverticulosis of large intestine without perforation or abscess without bleeding (K57.30) Active confirmed Encounters Encounter Location Date Provider Diagnosis [facility] [place] [address] [place] [phone] 10/18/2023 Matheus Nguyen Colon cancer scree trent [...] Notes * KRIS CORTESDOB:1965 (59 yo M)Acc No.[id number]:10/18/2023 COLON WITH MAC Patient:?KRIS CORTES Provider:?Matheus Nguyen MD :1965???Age:58 Y???Sex:Male Russel e:10/18/2023 Address:[address] [place] [address] , [place] Pcp:Benedicto Kay MD Subjective: * Chief Complaints: * ???1. Screening, hx polyps. * Medical History:? Objective: * Vitals:? Assessment: * Assessment: 1.?Colon cancer screening - Z12.11 (Primary)???2.?Colon polyps - K63.5???3.?Diverticulosis of large intestine without perforation or abscess without bleeding - K57.30???4.?Other hemorrhoids - K64.8??? Plan: * Treatment: * Procedure Codes:?84113 LESIO N REMOVAL COLONOSCOPY, Modifiers: PT * * The named appointment provid er may or may not be the originator of this progress note, and it is not deemed complete until electronically signed by the appointment provider. Sign off status: Pending * Provider:?Matheus Nguyen MD Date:? 024 Generated for Diaz nugent/Christian/eTransmitting on:?06/21/2024 11:00 AM EST
--- OUTSIDE RECORDS SUMMARY | 2024-06-21 11:00 | XMS_ITS ---
Author Organization [facility] Address [address] [place] [address] Care Team Providers Care Mail Technician Name Role Phone Benedicto Kay MD Primary Care Provider Matheus Montgomery Unavailable [phone] Allergies No Known Allergies REASON FOR VISIT Patient presents today for a recall colonoscopy Medications Medication SIG (Take, Route, Frequency, Duration) Notes Start Date End Date Status Metoprolol Succinate 50 MG 1 capsule Orally Once a day for 30 day(s) Active Lantus 100 UNIT/ML 40 units as directed Subcutaneous QHS Active Lipitor 80 MG 1 tablet Orally Once a day for 30 day(s) Active HumaLOG 100 UNIT/ML as directed Subcutan eous daily Active Social History Tobacco Use: Social History [...] Interpretation Negative Section Notes: Nonsmoker; no alcohol Problems Problem Type SNOMED Code ICD Code Onset Dates Problem Status W/U Status Risk Notes Problem History of adenomatous polyp of colon (563532077) History of adenomatous polyp of colon (Z86.010) Active confirmed Problem Irritable bowel syndrome characterized by constipation (500550351) Irritable bowel syndrome with constipation (K58.1) Active confirmed Problem Colon cancer screening (181562817) Colon cancer screening (Z12.11) Active confirmed Vital Signs Temperature 97.5 degrees Fahrenheit 09/13/19 24 Blood pressure systolic 000 mm Hg 09/13/19 24 Blood pressure diastolic 00 mm Hg 024 Height 72 in 09/13/2023 Weight 224 lb 2 oz lbs 09/13/2023 BMI 30.39 kg/m2 09/13/2023 Encounters Encounter Location Date Provider Diagnosis [facility] [address] [place] [address] 09/13/2023 Matheus Nguyen History of adenomato us polyp of colon Z86.010 ; Irritable bowel syndrome with constipation K58.1 and Colon cancer screening Z12.11 Assessments Encounter Date Diagnosis (ICD Code) Assessment Notes Treatment Notes Treatment Clinical Notes Section Notes 09/13/2023 History of adenomatous polyp of [...] given the fairly sizable polyp removed in 2018 and no followup exam since then. I [...] keep you advised of this progress. 09/13/2023 Colon cancer screening (ICD-10 - Z12.11) [...] to keep you advised of this progress. Plan Of Treatment Treatment Notes Assessment Notes Irritable bowel syndrome with constipati on Continue the Miralax and Fiber daily Colon cancer screening Adjust your Insul in for the 2 days before the colonoscopy as per Dr. Kay Future Test Test Name Order Date COLONOSCOPY 09/13/2023 Next Appt Details Follow Up: prn, Reason: Progress Notes * KRIS CORTESDOB:1965 (58 yo M)Acc No.[id number]:09/13/2023 Progress Notes Patient:?KRIS CORTES Provider:?Matheus Nguyen MD :1965???Age:58 Y???Sex:Male Russel e:09/13/2023 Address:[address] [place] [address] [id number] Pcp:Benedicto Kay MD Subjective: * Chief Complaints: * ???Patient presents today fo r a recall colonoscopy * HPI: ???incontinence:? I saw Kris in consultation today in regard to further evaluation of his constipation, personal history of tubular adenoma of the colon, and need for colorectal cancer screening. ?I last saw Kris in May of 2018, at which time he underwent a screening colonoscopy with an approximately 1.5 cm tubular adenoma removed from the cecum. The prep was somewhat limited that day and he had been sent a recall notice to come back within a year or so for a followup procedure. However, he never came in for that appointment. He does feel well but has had some mild constipation that has responded well to some daily MiraLax and fiber. He was having some abdominal cramps and bloating but ever since the constipation has improved his abdominal complaints have also resolved. He has not noticed any hematochezia nor melena. He enjoys a good appetite, without any significant heartburn or dysphagia. He denies any significant abdominal pains, jaundice, nor unintentional weight loss. He denies any known family history of colon cancer. * ROS:?General/Constitutional:?Change in appetite?denies.?Chills?denies.?Fatigue?denies.?Ophthalmologic:?Comments?all negative.?ENT:?Comments?all negative.?Respiratory:?hemoptysis?denies.?Cough?denies.?Cardiovascular:?Chest pain?denies.?Orthopnea?denies.?Gastrointestinal:?Comments?See HPI for details.?Genitourinary:?Hematuria?denies.?Dysuria?denies.?Musculoskeletal:?Painful joints?denies.?Weakness?denies.?Skin:?Itching?denies.?Rash?denies.?Neurologic:?Headache?denies.?Seizures?denies.?Psychiatric:?Comments?all negative.? * Medical History:? * Surgical History:?2V CABG 2017Left knee arthroscopy Right knee arthroscopy Left inguinal hernia repair Pacemaker * Hospitalization/Major Diagno stic Procedure:?No Hospitalization History. * Family History:?Father: dece ased, diagnosed with Heart disease, HTN (hypertension).?Mother: alive.? No colorectal cancer. No family history of liver cancer. * Social History:?Tobacco Use:?Tobacco Use/Smoking?Patient is a?former smoker,?How long has it been since you last smoked??> 10 years.?Drugs/Alcohol:?Alcohol Screen?Did you have a drink containing alcohol in the past year??No,?Points?0,?Interpretation?Negative.?Miscellaneous:?Marital status: . 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 ???Nonsmoker; no alcohol. * Medications:?TakingLipitor 8 0 MG Tablet 1 tablet Orally Once a dayMetoprolol Succinate 50 MG Capsule ER 24 Hour Sprinkle 1 capsule Orally Once a dayLantus 100 UNIT/ML Solution 40 units as directed Subcutaneous QHSHumaLOG 100 UNIT/ML Solution as directed Subcutaneous dailyTaking Lipitor 80 MG Tablet 1 tablet Orally Once a dayTaking Metoprolol Succinate 50 MG Capsule ER 24 Hour Sprinkle 1 capsule Orally Once a dayTaking Lantus 100 UNIT/ML Solution 40 units as directed Subcutaneous QHSTaking HumaLOG 100 UNIT/ML Solution as directed Subcutaneous dailyDiscontinuedPlavix 75 MG Tablet 1 tablet Orally Once a dayAspir-Low 81 MG Tablet Delayed Release 1 tablet Orally Once a dayDicyclomine HCl 10 MG Capsule 1 or 2 capsules Orally Every 6 hours as needed for abdominal cramps/bloating/discomfortMedication List reviewed and reconciled with the patientDiscontinued Plavix 75 MG Tablet 1 tablet Orally Once a dayDiscontinued Aspir-Low 81 MG Tablet Delayed Release 1 tablet Orally Once a dayDiscontinued Dicyclomine HCl 10 MG Capsule 1 or 2 capsules Orally Every 6 hours as needed for abdominal cramps/bloating/discomfortMedication List reviewed and reconciled with the patient * Allergies:?N.K.D.A.yes[Aller gies Verified] Objective: * Vitals:?Wt: 224 lb 2 oz, Ht: 72 in, BMI:30.39 Index, BP: 000/00 mm Hg, Temp: 97.5. * Examination: ???General Examination: ?GENERAL APPEARANCE:?pleasant, well nourished, well developed, in no acute distress.?EYES:?sclera non-icteric.?ORAL CAVITY:?mucosa moist.?NECK/THYROID:?no cervical lymphadenopathy, neck supple.?SKIN:?nonjaundiced, no spider angiomata.?HEART:?S1, S2 normal.?LUNGS:?clear to auscultation bilaterally.?ABDOMEN:?normal bowel sounds, no guarding or rigidity, no guarding or rigidity, no masses palpable, soft, nontender, nondistended.?EXTREMITIES:?no edema.?NEUROLOGIC:?alert and oriented.? Assessment: * Assessment: 1.?Irritable bowel syndrome with constipation - K58.1 (Primary)?2.?History of adenomatous polyp of colon - Z86.010?3.?Colon cancer screening - Z12.11? Overall, Kris appears quite well. His previous [...] to keep you advised of this progress. Plan: * Treatment: 2.?History of adenomatous po lyp of colon?Procedure: COLONOSCOPY (Ordered for 09/13/2023) 3.?Colon cancer screening?Procedure: COLONOSCOPY (Ordered for 09/13/2023)* with MAC, with 2 day prepsch ed for 10/18/23 at 11:30 am Notes: Adjust your Insulin for the 2 days before the colonoscopy as per Dr. Kay?? * Procedure Codes:?3017F COLOR ECTAL CA SCREEN DOC BJP7108H TOBACCO [id number] BP SCR NOT PRFRM REC REASON NOS * Preventive Medicine:? ??Counseling:?Care goal follow-up plan:?Above Normal BMI Follow-up?Giving encouragement to exercise,?BMI management provided?Yes.? * Follow Up:?prn * * Sign off status: Completed true * Provider:?Matheus Nguyen MD Date:? 024 Generated for Jose Cruzi jovanna/Christian/eTransmitting on:?06/21/2024 10:59 AM EST History and Physical Notes * HPI (History of Present Illness) Category Sub-Category Detail Notes Category Not es incontinence I saw Kris in consultation today in regard to further evaluation of his constipation, personal history of tubular adenoma of the colon, and need for colorectal cancer screening. I last saw Kris in May of 2018, at which time he underwent a screening colonoscopy with an approximately 1.5 cm tubular adenoma removed from the cecum. The prep was somewhat limited that day and he had been sent a recall notice to come back within a year or so for a followup procedure. However, he never came in for that appointment. He does feel well but has had some mild constipation that has responded well to some daily MiraLax and fiber. He was having some abdominal cramps and bloating but ever since the constipation has improved his abdominal complaints have also resolved. He has not noticed any hematochezia nor melena. He enjoys a good appetite, without any significant heartburn or dysphagia. He denies any significant abdominal pains, jaundice, nor unintentional weight loss. He denies any known family history of colon cancer. Examination Category Sub-Category Detail Notes Category Not es General Examination GENERAL APPEARANCE: pleasant , well [...]
--- OUTSIDE RECORDS SUMMARY | 2024-06-21 11:00 | XMS_ITS | Patient Health Record ---
Author Organization [facility] Address [address] [place] [address] Care Team Providers Care Roll Forming Machine Set Up Mechanic Name Role Phone Benedicto Kay MD Primary Care Provider Unavaila yoel Hester Lili Unavailable [phone] Reason For Referral No Information Medications Medication [...] Date Coverage End Date C[employer]a [address] Pam zhong, [place] [phone] Vinh Pool Self - patient is the insured Medical (General) History Medical History History ICD Code abdominal aortic aneurysm flash glucose sensor Hypertension Hyperlipidemia Diabetes mellitus Surgical History Surgery Date(Month/Year) coronary artery bypass 09/08/2022
--- OUTSIDE RECORDS SUMMARY | 2024-06-21 11:00 | XMS_ITS ---
Author Organization [facility] Address [address] [place] [address] Care Team Providers Care Straightener Hand Name Role Phone Benedicto Kay MD Primary Care Provider Unavaila Lili Schulz [phone] REASON FOR VISIT LEAD INFORMATICA DEVELOPER cx 01/04 Encounters Encounter Location Date Provider Diagnosis [address] [address] 01/02/2023 Lili Hester Plan Of Treatment No Information Progress Notes * Vinh POOL KDOB: [birth year] (57 yo M)Acc No.[id number]:01/02/2023 Patient:?Vinh Pool :1965???Age:57 Y???Sex:Male Address:[address] [place] [address], [address] * true * Date:? Generated for Jose Cruzi jovanna/Christian/eTransmitting on:?06/21/2024 11:00 AM EST
--- OUTSIDE RECORDS SUMMARY | 2024-06-21 11:00 | XMS_ITS ---
Author Organization [facility] Address [address] [place] [address] Care Team Providers Care Calender Runner Name Role Phone Benedicto Kay MD Primary Care Provider Lili Pfeiffer [phone] Medications Medication SIG (Take, Route, Frequency, Duration) [...] 01/04/2023 Encounters Encounter Location Date Provider Diagnosis [facility] [address] [place] [address] 01/04/2023 Lili Hester Plan Of Treatment No Information Progress Notes * Vinh POOL KDOB: [birth year] (59 yo M)Acc No.[id number]:01/04/2023 Progress Notes Patient:?Vinh POOL Provider:?Lili Hester DPM :1965???Age:57 Y???Sex:Male Russel e:01/04/2023 Address:[address] [place], [place] [address] Pcp:Benedicto Kay MD Subjective: * Chief Complaints: [...] ?Points?0 ?Interpretation?Negative ???Miscellaneous:?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 * Medications:?Taking Metoprol [...] Hester DPM Date:? Generated for Diaz nugent/Christian/Ginette on:?06/21/2024 10:59 AM EST
== END 2024-06-21 09:55 | disposition home or self-care (01) ==
LOC: HO.HMGCX 09:54
PROVIDERS: PCP Internal Medicine; Visit Provider Internal Medicine
DX: I71.40 Abdominal aortic aneurysm, without rupture, unspecified (principal)
CPT/HCPCS: 76706

== ENCOUNTER → 2024-06-21 09:58 | Outpatient (BNV) | payer BC, SELFPAY | PROVIDERS: PCP Internal Medicine; Visit Provider Radiology Diagnostic Radiology | DX: I71.40 Abdominal aortic aneurysm, without rupture, unspecified (principal) | CPT/HCPCS: 76706 ==

== ENCOUNTER 2024-08-01 08:06 | Outpatient (REF) | payer BC, SELFPAY ==
--- NOTE | ~2024-08-01 | XR_ITS ---
EXAMINATION: XR KNEE, LEFT XR KNEE, RIGHT CLINICAL INFORMATION: M25.569 - Pain in unspecified knee COMPARISON: Right knee radiographs 09/01/2023. Left knee radiographs 12/01/2020. TECHNIQUE: AP view bilateral knees standing, and lateral and patellofemoral views of each knee. FINDINGS: RIGHT KNEE: No fracture, dislocation, or suspicious bone lesion. Normal alignment. Diffuse chondrocalcinosis in the medial, lateral, and patellofemoral compartments. Moderate arthritic changes of the medial lateral compartments, with severe arthritic changes of the patellofemoral compartment, with associated marginal osteophytic spurring, subchondral sclerosis, and mild flattening of the articular surfaces. There is complete joint space loss with oacn-ie-nzkq appearance involving the lateral patellar facet. No significant joint effusion. Early vascular calcifications in the soft tissues. LEFT KNEE: No fracture, dislocation, or suspicious bone lesion. Normal alignment. Diffuse chondrocalcinosis in the medial, lateral , and patellofemoral compartments. Moderate arthritic changes of the medial lateral compartments, with severe arthritic changes of the patellofemoral compartment, with associated marginal osteophytic spurring, subchondral sclerosis, and mild flattening of the articular surfaces. There is complete joint space loss with fyxr-vb-utur appearance involving the lateral patellar facet. No significant joint effusion. Early vascular calcifications in the soft tissues. XR/XR knee LT 3V IMPRESSION: 1. Bilateral chondrocalcinosis. 2. Bilateral moderate medial and lateral compartment arthritis, with severe patellofemoral compartment arthritic changes. Findings suggest chronic CPPD. Electronically signed by: Rocky Granados MD 08/01/2024 02:42 PM EDT
--- NOTE | ~2024-08-01 | XR_ITS ---
EXAMINATION: XR KNEE, LEFT XR KNEE, RIGHT CLINICAL INFORMATION: M25.569 - Pain in unspecified knee COMPARISON: Right knee radiographs 09/01/2023. Left knee radiographs 12/01/2020. TECHNIQUE: AP view bilateral knees standing, and lateral and patellofemoral views of each knee. FINDINGS: RIGHT KNEE: No fracture, dislocation, or suspicious bone lesion. Normal alignment. Diffuse chondrocalcinosis in the medial, lateral, and patellofemoral compartments. Moderate arthritic changes of the medial lateral compartments, with severe arthritic changes of the patellofemoral compartment, with associated marginal osteophytic spurring, subchondral sclerosis, and mild flattening of the articular surfaces. There is complete joint space loss with hzzj-rg-ntqo appearance involving the lateral patellar facet. No significant joint effusion. Early vascular calcifications in the soft tissues. LEFT KNEE: No fracture, dislocation, or suspicious bone lesion. Normal alignment. Diffuse chondrocalcinosis in the medial, lateral , and patellofemoral compartments. Moderate arthritic changes of the medial lateral compartments, with severe arthritic changes of the patellofemoral compartment, with associated marginal osteophytic spurring, subchondral sclerosis, and mild flattening of the articular surfaces. There is complete joint space loss with ulcy-qx-ylmb appearance involving the lateral patellar facet. No significant joint effusion. Early vascular calcifications in the soft tissues. XR/XR knee RT 3V IMPRESSION: 1. Bilateral chondrocalcinosis. 2. Bilateral moderate medial and lateral compartment arthritis, with severe patellofemoral compartment arthritic changes. Findings suggest chronic CPPD. Electronically signed by: Rocky Granados MD 08/01/2024 02:42 PM EDT
--- OUTSIDE RECORDS SUMMARY | 2024-08-02 08:20 | XMS_ITS ---
Author Organization [facility] Address [address] [place] [address] Care Team Providers Care Construction Economist Name Role Phone Benedicto Kay MD Primary Care Provider Unavaila Matheus Carter [phone] REASON FOR VISIT new insurance information Encounters Encounter Location Date Provider Diagnosis [facility] [address] [place] [address] 10/16/2023 Matheus Nguyen Plan Of Treatment No Information Progress Notes * KRIS CORTESDOB:1965 (58 yo M)Acc No.[id number]:10/16/2023 Patient:?KRIS CORTES :1965???Age:58 Y???Sex:Male Address:[address] , [place] [place], [address] * true * Date:? Generated for Diaz nugent/Christian/eTransmitting on:?08/02/2024 08:20 AM EDT
--- OUTSIDE RECORDS SUMMARY | 2024-08-02 08:20 | XMS_ITS ---
Author Organization [facility] Address [address] [place] [address] Care Team Providers Care Rigging Engineer Name Role Phone Rahul CAVAZOS, Benedicto Primary Care Provider Yossia yoel HernandezLili deal Unavailable [phone] Ava Adkins [phone] Encounters Encounter Location Date Provider Diagnosis [facility] [address] [place] [address] 02/06/2023 Ava Adkins Plan Of Treatment No Information Progress Notes * Vinh POOL KDOB: 4 (59 yo M)Acc No.[id number]:02/06/2023 Progress Notes Patient:?Vinh POOL Provider:?Ava Adkins DPM :1965???Age:57 Y???Sex:Male Russel e:02/06/2023 Address:[address] [place] [id number] Pcp:Benedicto Kay MD Subjective: * Chief Complaints: [...] DPM Date:?2022 Generated for Jose Cruzi jovanna/Famercedg/eTransmitting on:?08/02/2024 08:20 AM EDT
--- OUTSIDE RECORDS SUMMARY | 2024-08-02 08:21 | XMS_ITS ---
Author Organization [facility] Address [address] [place] [address] Care Team Providers Care Stencil Maker Name Role Phone Benedicto Kay MD Primary Care Provider Matheus Montgomery Unavailable [phone] Allergies No Known Allergies REASON FOR VISIT [...] Problem History of adenomatous polyp of colon (371777070) History of adenomatous polyp of colon (Z86.010) Active confirmed Problem Irritable bowel syndrome characterized by constipation (792321030) Irritable bowel syndrome with constipation (K58.1) Active confirmed Problem Colon cancer screening (401411311) Colon cancer screening (Z12.11) Active confirmed Vital Signs Temperature 97.5 degrees Fahrenheit 09/13/19 24 Blood pressure systolic 000 mm Hg 09/13/19 24 Blood pressure diastolic 00 mm Hg 024 Height 72 in 09/13/2023 Weight 224 lb 2 oz lbs 09/13/2023 BMI 30.39 kg/m2 09/13/2023 Encounters Encounter Location Date Provider Diagnosis [facility] [address] [place] [address] 09/13/2023 Matheus Nguyen History of adenomato us [...] Notes * KRIS CORTESDOB:1965 (58 yo M)Acc No.[id number]:09/13/2023 Progress Notes Patient:?KRIS CORTES Provider:?Matheus Nguyen MD :1965???Age:58 Y???Sex:Male Russel e:09/13/2023 Address:[address] [place] [address] [phone] Pcp:Benedicto Kay MD Subjective: * Chief Complaints: [...] the past year??No,?Points?0,?Interpretation?Negative.?Miscellaneous:?Marital status: . 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 ???Nonsmoker; no alcohol. * Medications:?TakingLipitor 8 0 [...] Procedure Codes:?3017F COLOR ECTAL CA SCREEN DOC MSG4471H TOBACCO NON-TIOFJ2628 BP SCR NOT PRFRM REC REASON NOS * Preventive Medicine:? ??Counseling:?Care goal follow-up plan:?Above Normal BMI Follow-up?Giving encouragement to exercise,?BMI management provided?Yes.? * Follow Up:?prn * * Sign off status: Completed true * Provider:?Matheus Nguyen MD Date:? 024 Generated for Jose Cruzi jovanna/Christian/eTransmitting on:?08/02/2024 08:20 AM EDT History and Physical Notes * [...]
--- OUTSIDE RECORDS SUMMARY | 2024-08-02 08:21 | XMS_ITS | Patient Health Record ---
Author Organization [facility] Address [address] [place] [address] Care Team Providers Care White Shoe Ragger Name Role Phone Benedicto Kay MD Primary Care Provider Matheus Montgomery [phone] Allergies No Known Allergies Results Component Value Reference Range Notes Glucose, Whole Blood Reviewed date:10/18/2023 02:23:17 PM Interpretation: Performing Lab:[facility], [address] [place] [phone] Notes/Report: Glucose, Whole Blood 217 60-115 mg/dL METER # : [id number] Pathology Reviewed date:11/07/2023 01:13:27 AM Interpretation: Performing Lab:[facility], [address] [place] [phone] Notes/Report: ---- Name: Kris Pool Age/Sex: 58/M : 1965 Unit#: [id number] Attend Dr: Matheus Nguyen MD Re10/18/23 Status : [facility] Location: [facility] Disch: ---- SPEC : [id number] RECD : 10/18/23 STATUS: RUI ZHU NUM: [id number] AMANDA: 10/18/23-7 [facility] [address]: Matheus Nguyen MD ENTERED: 10/18/23 19 [...] CEDS Copies To: Benedicto Kay MD [address] [place] [address] Matheus Nguyen MD [facility] [address] [place] [address] ---- Signed (signature on file) Jose Solorio MD 10/20/23 1543 ---- END OF REPORT Reason For Referral Referring Provider First Name Benedicto Referring Provider Last Name Rahul Referring Provider Speciality General Pr actice Referred Organization [facility] Referred Provider Matheus Nguyen Referred Address [address] [place] [address],[facility] [address],[place], [place],[address], Referred Provider Specialty Gastroentero logy General Notes [place],Leslie 024 09:52:43 AM EDT > pt called back and spoke with salazar guthrie and chose his pcp as Dr. Kay. Ref # [id number]. I then called Dr. Hector office and [...] Status Risk Notes Problem Colon cancer screening (835508434) Colon cancer screening (Z12.11) Active confirmed Problem 415672454 Encounter for screening for malignant neoplasm of colon (Z12.11) Active confirmed Problem History of adenomatous polyp of colon (869985260) History of adenomatous polyp of colon (Z86.010) Active confirmed Problem Diverticular disease of colon (792475475) Diverticulosis of large intestine without perforation or abscess without bleeding (K57.30) Active confirmed Problem 300299999222887 Preprocedural examination (Z01.818) Active confirmed Problem Irritable bowel syndrome characterized by constipation (667115303) Irritable bowel syndrome with constipation (K58.1) Active confirmed Vital Signs Temperature 97.5 degrees Fahrenheit 09/13/2023 Blood pressure diastolic 00 mm Hg 09/13/2023 Height 72 in 09/13/2023 Blood pressure systolic 000 mm Hg 09/13/2023 Weight 224 lb 2 oz lbs 09/13/2023 BMI 30.39 kg/m2 09/13/2023 Encounters Encounter Location Date Provider Diagnosis [facility] [place] [address] [place] [phone] 10/18/2023 Matheus Nguyen Colon cancer screeni ng Z12.11 ; Colon polyps K63.5 ; Diverticulosis of large intestine without perforation or abscess without bleeding K57.30 and Other hemorrhoids K64.8 [facility] [address] [address] 09/13/2023 Matheus Nguyen History of adenomato us polyp of colon Z86.010 ; Irritable bowel syndrome with constipation K58.1 and Colon cancer screening Z12.11 [facility] [address] [address] 10/16/2023 Matheus Nguyen Assessments Encounter Date Diagnosis [...] Insured Coverage Start Date Coverage End Date [facility] [employer] PROFESSIONAL CLAIMS [address] [place] [address] [id number] KRIS POOL Self - patient is the insured Medical (General) History Medical History History ICD Code Denies CVA,Lung disease,renal disease Hypertension IDDM [place] 2006 with stents and 2 V CABG [...]
--- OUTSIDE RECORDS SUMMARY | 2024-08-02 08:21 | XMS_ITS ---
Author Organization [facility] Address [address] [place] [address] Care Team Providers Care Barrel Stave Inspector Name Role Phone Benedicto Kay MD Primary Care Provider Unavaila Matheus Carter Unavailable [phone] REASON FOR VISIT screening, hx polyps Problems Problem Type SNOMED Code ICD Code Onset Dates Problem Status W/U Status Risk Notes Problem Diverticular disease of colon (639295647) Diverticulosis of large intestine without perforation or abscess without bleeding (K57.30) Active confirmed Encounters Encounter Location Date Provider Diagnosis [facility] [place] [address] [place] [phone] 10/18/2023 Matheus Nguyen Colon cancer scree trent [...] Notes * KRIS CORTESDOB:1965 (59 yo M)Acc No.[id number]:10/18/2023 COLON WITH MAC Patient:?KRIS CORTES Provider:?Matheus Nguyen MD :1965???Age:58 Y???Sex:Male Russel e:10/18/2023 Address:[address] [place] [address] , [place], [phone] Pcp:Benedicto Kay MD Subjective: * Chief Complaints: * ???1. Screening, hx polyps. * Medical History:? Objective: * Vitals:? Assessment: * Assessment: 1.?Colon cancer screening - Z12.11 (Primary)???2.?Colon polyps - K63.5???3.?Diverticulosis of large intestine without perforation or abscess without bleeding - K57.30???4.?Other hemorrhoids - K64.8??? Plan: * Treatment: * Procedure Codes:?37238 LESIO N REMOVAL COLONOSCOPY, Modifiers: PT * * The named appointment provid er may or may not be the originator of this progress note, and it is not deemed complete until electronically signed by the appointment provider. Sign off status: Pending * Provider:?Matheus Nguyen MD Date:? 024 Generated for Diaz nugent/Christian/eTransmitting on:?08/02/2024 08:21 AM EDT
--- OUTSIDE RECORDS SUMMARY | 2024-08-02 08:21 | XMS_ITS | Patient Health Record ---
Author Organization [facility] Address [address] [place] [address] Care Team Providers Care Punch Press Operator Helper Name Role Phone Benedicto Kya MD Primary Care Provider Unavaila yoel Hester Lili Unavailable [phone] Reason For Referral No Information Medications Medication [...] Date Coverage End Date [employer] [address] [place], [place] [address] [phone] Vinh Pool Self - patient is the insured Medical (General) History Medical History History ICD Code abdominal aortic aneurysm flash glucose sensor Hypertension Hyperlipidemia Diabetes mellitus Surgical History Surgery Date(Month/Year) coronary artery bypass 09/08/2022
== END 2024-08-01 08:07 | disposition home or self-care (01) ==
LOC: HO.HOSX 08:06
PROVIDERS: Visit Provider Physician Assistant
DX: M17.12 Unilateral primary osteoarthritis, left knee (principal); E11.65 Type 2 diabetes mellitus with hyperglycemia; Z79.4 Long term (current) use of insulin
CPT/HCPCS: 20610; 73562; J1010; J2003

== ENCOUNTER 2024-08-01 08:56 | Outpatient (AMB) | payer BC, SELFPAY ==
--- NOTE | 2024-08-01 09:03 | A.OFFVIS_ITS ---
Vital Signs 08/01/24 09:19 Height 6 ft Weight 221 lb BMI 30.0 Intake Visit Reasons: OV - left knee OA, last inj 11/23/23 Intake Note: Vinh is a 59 year old male who presents today for a follow up of his left knee OA, both knees were injected the right was injected on 09/01/23 (40) and the left was injected 11/23/23 (80). Patient states that he would like to repeat his injection. His last injections gave him relief and his pain started to come back these passed 2 months. Patient states that his left knee is worse than the right. He notices that his pain is getting worse on the medial aspect of the knee and behind his patella. Allergies No Known Allergies [No Known Allergies*] Allergy (Verified 08/01/24 09:19) HPI HPI OV - left knee OA, last inj 11/23/23: Details: Mr. Pool is a 59-year-old male who presents to the office today for left knee osteoarthritis. Last cortisone injection was 11/23/2023. This did give him good relief but unfortunately his pain has returned. He is looking for repeat cortisone injection today. He has a past medical history significant for AAA and diabetes requiring insulin. Last A1c was obtained in May of 2024 and recorded at 8.8. [facility] Medical History (Updated 06/10/24 @ 12:53 by Benedicto Kay MD) Hx of cardiac pacemaker IBS (irritable bowel syndrome) Osteoarthritis AAA (abdominal aortic aneurysm) CAD (coronary artery disease) HTN (hypertension) Diabetes Abdominal aortic aneurysm (AAA) 3.0 cm to 5.5 cm in diameter in male Surgical History Hx of left inguinal hernia repair Hx of arthroscopy of knee H/O colonoscopy Status post double vessel coronary artery bypass Family History Mother Alzheimer disease Mental health disorder Father No problems noted. 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 No ecchymosis, erythema, or joint effusion. Range of motion 10-90 degrees. Crepitus with range of motion. NVI. Office Procedures AMB Joint Injection/Aspiration Joint Injection/Aspiration Primary Site: left knee Prep: site was prepped using aseptic technique, ethochloride spray was applied and injection warnings given Injected: 40 mg of, DepoMedrol, with 8 mL of (2% plain lido ) and in the joint Approach Used: anterolateral Procedure: The patient tolerated the procedure well, but had some pain with the injection and there was some relief with the local anesthesia Coding 85745 - Large joint Procedure code (CPT) selection complete Assessment & Plan Assessment & Plan (1) Osteoarthritis of left knee: Code(s): M17.12 - Unilateral primary osteoarthritis, left knee Category: Medical (2) DMII (diabetes mellitus, type 2): Code(s): E11.9 - Type 2 diabetes mellitus without complications Category: Medical Qualifiers: Diabetes mellitus flat cutter insulin use: with flat cutter use Diabetes mellitus complication status: with hyperglycemia Qualified Code(s): E11.65 - Type 2 diabetes mellitus with hyperglycemia; 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 Pool is a 59-year-old male who presents to the office today for left knee osteoarthritis. Last cortisone injection was 11/23/2023. This did give him good relief but unfortunately his pain has returned. He is looking for repeat cor tisone injection today. He has a past medical history significant for AAA and diabetes requiring insulin. Last A1c was obtained in May of 2024 and recorded at 8.8. We have previously discussed total joint replacement in which the patient is interested in moving forward with after the summer. The patient was offered a cortisone injection in the left knee with 40 mg of DepoMedrol. The patient was explained the risks, benefits, and alternatives to receiving this injection. After receiving consent for the injection, the patient had the procedure done while in the office today. The patient tolerated the procedure well with no complications. Due to the patient?s history of diabetes, they were instructed to monitor their blood glucose level. The patient was informed that they could see a rise in their numbers and if the numbers became too high, they were instructed to call their PCP. The patient was also informed that they could have facial flushing as a side effect of the injection, but this will pass. Additionally, our nurse navigator was able to speak with the patient while in the office today. He will follow up with Dr. Jackson in 1 month to discuss left total knee replacement as the left is causing greater pain than the right. X-rays of bilateral knees which were obtained while in the office today and were reviewed by me, Keisha Ludwig PA-C, revealed severe osteoarthritis. Orders: Orders XR knee RT 3V Today M25.569 - Pain in unspecified knee XR knee LT 3V Today M25.569 - Pain in unspecified knee Coding Level of Care Code Est Pt Level 4 (43404) Diagnoses Osteoarthritis of left knee M17.12 Type 2 diabetes mellitus with hyperglycemia, with long-term current use of insulin E11.65; Z79.4 Diabetes mellitus flat cutter insulin use: with mcfp use Diabetes mellitus complication status: with hyperglycemia CPT Codes Coding - Large joint: 38407 - Large joint ([id number])
--- OUTSIDE RECORDS SUMMARY | 2024-08-01 09:41 | XMS_ITS ---
Author Organization [facility] Address [address] [place] [address] Care Team Providers Care Satellite Television Installer Name Role Phone Rahul CAVAZOS, Benedicto Primary Care Provider Yossia yoel HernandezLili deal Unavailable [phone] Ava Adkins [phone] Encounters Encounter Location Date Provider Diagnosis [facility] [address] [place] [address] 02/06/2023 Ava Adkins Plan Of Treatment No Information Progress Notes * Vinh POOL KDOB: [birth year] (59 yo M)Acc No.[id number]:02/06/2023 Progress Notes Patient:?Vinh POOL Provider:?Ava Adkins DPM :1965???Age:57 Y???Sex:Male Russel e:02/06/2023 Address:[address] [place] [address] Pcp:Benedicto Kay MD Subjective: * Chief Complaints: [...] Adkins DPM Date:?2022 Generated for Jose Cruzi jovanna/Famercedg/eTransmitting on:?08/01/2024 09:41 AM EDT
--- OUTSIDE RECORDS SUMMARY | 2024-08-01 09:41 | XMS_ITS ---
Author Organization [facility] Address [address] [place] [address] Care Team Providers Care Slot Machine Floor Person Name Role Phone Benedicto Kay MD Primary Care Provider Unavaila Matheus Carter [phone] REASON FOR VISIT new insurance information Encounters Encounter Location Date Provider Diagnosis [facility] [address] [place] [address] 10/16/2023 Matheus Nguyen Plan Of Treatment No Information Progress Notes * KRIS CORTESDOB:1965 (58 yo M)Acc No.[id number]:10/16/2023 Patient:?KRIS CORTES :1965???Age:58 Y???Sex:Male Address:[address] , [place], [address] * true * Date:? Generated for Diaz nugent/Christian/eTransmitting on:?08/01/2024 09:41 AM EDT
--- OUTSIDE RECORDS SUMMARY | 2024-08-01 09:42 | XMS_ITS | Patient Health Record ---
Author Organization [facility] Address [address] [place] [address] Care Team Providers Care Fermentation Scientist Name Role Phone Benedicto Kay MD Primary Care Provider Unavaila yoel Hester Lili Unavailable [phone] Reason For Referral No Information Medications Medication [...] Date Coverage End Date C[employer]a [address] Pam zhong, [place] [phone] Vinh Pool Self - patient is the insured Medical (General) History Medical History History ICD Code abdominal aortic aneurysm flash glucose sensor Hypertension Hyperlipidemia Diabetes mellitus Surgical History Surgery Date(Month/Year) coronary artery bypass 09/08/2022
--- OUTSIDE RECORDS SUMMARY | 2024-08-01 09:42 | XMS_ITS ---
Author Organization [facility] Address [address] [place] [address] Care Team Providers Care Inspector Production Plastic Parts Name Role Phone Benedicto Kay MD Primary Care Provider Matheus Montgomery Unavailable [phone] Allergies No Known Allergies REASON FOR VISIT [...] Problem History of adenomatous polyp of colon (888353019) History of adenomatous polyp of colon (Z86.010) Active confirmed Problem Irritable bowel syndrome characterized by constipation (231221355) Irritable bowel syndrome with constipation (K58.1) Active confirmed Problem Colon cancer screening (404706818) Colon cancer screening (Z12.11) Active confirmed Vital Signs Temperature 97.5 degrees Fahrenheit 09/13/19 24 Blood pressure systolic 000 mm Hg 09/13/19 24 Blood pressure diastolic 00 mm Hg 024 Height 72 in 09/13/2023 Weight 224 lb 2 oz lbs 09/13/2023 BMI 30.39 kg/m2 09/13/2023 Encounters Encounter Location Date Provider Diagnosis [facility] [address] [place] [address] 09/13/2023 Matheus Nguyen History of adenomato us [...] Notes * KRIS CORTESDOB:1965 (58 yo M)Acc No.[id number]:09/13/2023 Progress Notes Patient:?KRIS CORTES Provider:?Matheus Nguyen MD :1965???Age:58 Y???Sex:Male Russel e:09/13/2023 Address:[address] [place] [address] [place] Pcp:Benedicto Kay MD Subjective: * Chief Complaints: [...] in the past year??No,?Points?0,?Interpretation?Negative.?Miscellaneous:?Marital status: . 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 ???Nonsmoker; no alcohol. * Medications:?TakingLipitor 8 0 [...] Procedure Codes:?3017F COLOR ECTAL CA SCREEN DOC [id number] TOBACCO [id number] BP SCR NOT PRFRM REC REASON NOS * Preventive Medicine:? ??Counseling:?Care goal follow-up plan:?Above Normal BMI Follow-up?Giving encouragement to exercise,?BMI management provided?Yes.? * Follow Up:?prn * * Sign off status: Completed true * Provider:?Matheus Nguyen MD Date:? 024 Generated for Jose Cruzi jovanna/Christian/eTransmitting on:?08/01/2024 09:41 AM EDT History and Physical Notes * HPI (History [...]
--- OUTSIDE RECORDS SUMMARY | 2024-08-01 09:42 | XMS_ITS | Patient Health Record ---
Author Organization [facility] Address [address] [place] [address] Care Team Providers Care Consulting Solution Manager Name Role Phone Benedicto Kay MD Primary Care Provider Matheus Montgomery [phone] Allergies No Known Allergies Results Component Value Reference Range Notes Glucose, Whole Blood Reviewed date:10/18/2023 02:23:17 PM Interpretation: Performing Lab:[facility], [address] [place] [phone] Notes/Report: Glucose, Whole Blood 217 60-115 mg/dL METER # : [id number] Pathology Reviewed date:11/07/2023 01:13:27 AM Interpretation: Performing Lab:[facility], [address] [place] [phone] Notes/Report: ---- Name: Kris Pool Age/Sex: 58/M : 1965 Unit#: [id number] Attend Dr: Matheus Nguyen MD Re10/18/23 Status : [facility] Location: [facility] Disch: ---- SPEC : [id number] RECD : 10/18/23 STATUS: RUI ZHU NUM: [id number] AMANDA: 10/18/23-[address] [facility] [address]: Matheus Nguyen MD ENTERED: 10/18/23 19 [...] CEDS Copies To: Benedicto Kay MD [address] [place] [address] Matheus Nguyen MD [facility] [address] [place] [address] ---- Signed (signature on file) Jose Solorio MD 10/20/23 1543 ---- END OF REPORT Reason For Referral Referring Provider First Name Benedicto Referring Provider Last Name Rahul Referring Provider Speciality General Pr actice Referred Organization [facility] Referred Provider Matheus Nguyen Referred Address [address] [place] [address],[facility] [address],[place], [place],[address], Referred Provider Specialty Gastroentero logy General Notes Rembrandt,Leslie 024 09:52:43 AM EDT > pt called back and spoke with salazar guthrie and chose his pcp as Dr. Kay. Ref # [id number]. I then called Dr. Hector office and [...] Status Risk Notes Problem Colon cancer screening (097291350) Colon cancer screening (Z12.11) Active confirmed Problem 795733598 Encounter for screening for malignant neoplasm of colon (Z12.11) Active confirmed Problem History of adenomatous polyp of colon (468399977) History of adenomatous polyp of colon (Z86.010) Active confirmed Problem Diverticular disease of colon (449008531) Diverticulosis of large intestine without perforation or abscess without bleeding (K57.30) Active confirmed Problem 884598170827200 Preprocedural examination (Z01.818) Active confirmed Problem Irritable bowel syndrome characterized by constipation (765731858) Irritable bowel syndrome with constipation (K58.1) Active confirmed Vital Signs Temperature 97.5 degrees Fahrenheit 09/13/2023 Blood pressure diastolic 00 mm Hg 09/13/2023 Height 72 in 09/13/2023 Blood pressure systolic 000 mm Hg 09/13/2023 Weight 224 lb 2 oz lbs 09/13/2023 BMI 30.39 kg/m2 09/13/2023 Encounters Encounter Location Date Provider Diagnosis [facility] Outpatient [address] [place] [id number] 10/18/2023 Matheus Nguyen Colon cancer screeni ng Z12.11 ; Colon polyps K63.5 ; Diverticulosis of large intestine without perforation or abscess without bleeding K57.30 and Other hemorrhoids K64.8 [facility] [address] [address] 09/13/2023 Matheus Nguyen History of adenomato us polyp of colon Z86.010 ; Irritable bowel syndrome with constipation K58.1 and Colon cancer screening Z12.11 [facility] [address] [address] 10/16/2023 Matheus Nguyen Assessments Encounter Date Diagnosis [...] Insured Coverage Start Date Coverage End Date [facility] [employer] PROFESSIONAL CLAIMS [address] [place] [address] [id number] KRIS POLO Self - patient is the insured Medical (General) History Medical History History ICD Code Denies CVA,Lung disease,renal disease Hypertension IDDM CT 2006 with stents and 2 V CABG [...]
--- OUTSIDE RECORDS SUMMARY | 2024-08-01 09:42 | XMS_ITS ---
Author Organization [facility] Address [address] [place] [address] Care Team Providers Care Cell Repairer Name Role Phone Benedicto Kay MD Primary Care Provider Unavaila Matheus Carter Unavailable [phone] REASON FOR VISIT screening, hx polyps Problems Problem Type SNOMED Code ICD Code Onset Dates Problem Status W/U Status Risk Notes Problem Diverticular disease of colon (657637372) Diverticulosis of large intestine without perforation or abscess without bleeding (K57.30) Active confirmed Encounters Encounter Location Date Provider Diagnosis [facility] [place] [address] [place] [phone] 10/18/2023 Matheus Nguyen Colon cancer scree trent [...] Notes * KRIS CORTESDOB:1965 (59 yo M)Acc No.[id number]:10/18/2023 COLON WITH MAC Patient:?KRIS CORTES Provider:?Matheus Nguyen MD :1965???Age:58 Y???Sex:Male Russel e:10/18/2023 Address:[address] [place] [address] , [id number] Pcp:Benedicto Kay MD Subjective: * Chief Complaints: * ???1. Screening, hx polyps. * Medical History:? Objective: * Vitals:? Assessment: * Assessment: 1.?Colon cancer screening - Z12.11 (Primary)???2.?Colon polyps - K63.5???3.?Diverticulosis of large intestine without perforation or abscess without bleeding - K57.30???4.?Other hemorrhoids - K64.8??? Plan: * Treatment: * Procedure Codes:?96520 LESIO N REMOVAL COLONOSCOPY, Modifiers: PT * * The named appointment provid er may or may not be the originator of this progress note, and it is not deemed complete until electronically signed by the appointment provider. Sign off status: Pending * Provider:?Matheus Nguyen MD Date:? 024 Generated for Diaz nugent/Christian/eTransmitting on:?08/01/2024 09:41 AM EDT
== END 2024-08-01 12:39 | disposition home or self-care (01) ==
LOC: HO.HOS 08:56
PROVIDERS: PCP Physician Assistant; Visit Provider Physician Assistant
DX: M17.12 Unilateral primary osteoarthritis, left knee (principal); E11.65 Type 2 diabetes mellitus with hyperglycemia; Z79.4 Long term (current) use of insulin
CPT/HCPCS: 20610; 99214

== ENCOUNTER → 2024-08-01 08:58 | Outpatient (BNV) | payer BC, SELFPAY | PROVIDERS: Visit Provider Radiology Diagnostic Radiology | DX: M11.261 Other chondrocalcinosis, right knee (principal); M11.262 Other chondrocalcinosis, left knee; M17.0 Bilateral primary osteoarthritis of knee; M22.2X1 Patellofemoral disorders, right knee; M22.2X2 Patellofemoral disorders, left knee | CPT/HCPCS: 73562 ==

== ENCOUNTER 2024-08-26 12:43 | Outpatient (AMB) | payer BC, SELFPAY ==
--- NOTE | 2024-08-26 12:44 | MHC.OFFVIS ---
Intake Visit Reasons: OV - Discuss Left TKA - A1C High Intake Note: Vinh is a 59 year old male who presents today for a follow up of his Left Knee, to discuss TKA. Patients last A1C as of 06/10/24 was 8.8 - because of this he has not been booked for surgery yet. He will need to have his labs redrawn. He was last seen in office with Keisha Ludwig who provided the patient with an injection on 08/01/24. Allergies No Known Allergies [No Known Allergies*] Allergy (Verified 08/01/24 09:19) HPI HPI OV - Discuss Left TKA - A1C High: Details: Vinh is a 59 year old male who presents today for a follow up of his Left Knee, to discuss TKA. Patients last A1C as of 06/10/24 was 8.8 - because of this he has not been booked for surgery yet. He will need to have his labs redrawn. He was last seen in office with Keisha Ludwig who provided the patient with an injection on 08/01/24. He states the injections have not been helpful. He continues to have bilateral knee pain left greater than right. He is able to go to the gym occasionally and work on a treadmill and states that his pain is occasionally tolerable and occasionally he can not sleep in his difficulty doing of bending or ambulatory activities. [facility] Medical History (Updated 08/26/24 @ 14:55 by Drew Jackson MD) Hx of cardiac pacemaker IBS (irritable bowel syndrome) Osteoarthritis AAA (abdominal aortic aneurysm) CAD (coronary artery disease) HTN (hypertension) Diabetes Abdominal aortic aneurysm (AAA) 3.0 cm to 5.5 cm in diameter in male Surgical History Hx of left inguinal hernia repair Hx of arthroscopy of knee H/O colonoscopy Status post double vessel coronary artery bypass Family History Mother Alzheimer disease Mental health disorder Father No problems noted. 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 0-130 degrees of motion bilaterally. Mild effusion left knee. Mild tenderness to palpation medial compartment bilaterally. Stable to varus and valgus stress bilaterally. Results Reviewed Results Reviewed: I personally reviewed relevant radiographs. Severe bilateral knee osteoarthritis affecting the anterior compartment most prominently Assessment & Plan Assessment & Plan (1) Arthritis of both knees: Code(s): M17.0 - Bilateral primary osteoarthritis of knee Category: Medical Plan: Vinh is a 59-year-old gentleman with bilateral knee OA. His symptoms are not as severe as his radiographs. He has not really benefitted from steroid injections and I think it is reasonable to try viscosupplementation. Coding Level of Care Code Est Pt Level 3 (37169) Diagnoses Arthritis of both knees M17.0
--- OUTSIDE RECORDS SUMMARY | 2024-08-26 13:03 | XMS_ITS ---
Author Organization [facility] Address [address] [place] [address] Care Team Providers Care Parking Enforcement Technician Name Role Phone Benedicto Kay MD Primary Care Provider Unavaila Matheus Carter [phone] REASON FOR VISIT new insurance information Encounters Encounter Location Date Provider Diagnosis [facility] [address] [place] [address] 10/16/2023 Matheus Nguyen Plan Of Treatment No Information Progress Notes * KRIS CORTESDOB:1965 (58 yo M)Acc No.[id number]:10/16/2023 Patient:?KRIS CORTES :1965???Age:58 Y???Sex:Male Address:[address] , [facility] [place], [address] * true * Date:? Generated for Diaz nugent/Christian/eTransmitting on:?08/26/2024 01:03 PM EDT
--- OUTSIDE RECORDS SUMMARY | 2024-08-26 13:03 | XMS_ITS ---
Author Organization [facility] Address [address] [place] [address] Care Team Providers Care District Court Judge Name Role Phone Benedicto Kay MD Primary Care Provider Matheus Montgomery Unavailable [phone] Allergies No Known Allergies REASON FOR VISIT [...] Problem History of adenomatous polyp of colon (937114574) History of adenomatous polyp of colon (Z86.010) Active confirmed Problem Irritable bowel syndrome characterized by constipation (028737870) Irritable bowel syndrome with constipation (K58.1) Active confirmed Problem Colon cancer screening (586545395) Colon cancer screening (Z12.11) Active confirmed Vital Signs Temperature 97.5 degrees Fahrenheit 09/13/19 24 Blood pressure systolic 000 mm Hg 09/13/19 24 Blood pressure diastolic 00 mm Hg 024 Height 72 in 09/13/2023 Weight 224 lb 2 oz lbs 09/13/2023 BMI 30.39 kg/m2 09/13/2023 Encounters Encounter Location Date Provider Diagnosis [facility] [address] [place] [address] 09/13/2023 Matheus Nguyen History of adenomato us [...] Notes * KRIS CORTESDOB:1965 (58 yo M)Acc No.[id number]:09/13/2023 Progress Notes Patient:?KRIS CORTES Provider:?Matheus Nguyen MD :1965???Age:58 Y???Sex:Male Russel e:09/13/2023 Address:[address] [place] [address] [id number] Pcp:Benedicto Kay MD Subjective: * Chief Complaints: [...] in the past year??No,?Points?0,?Interpretation?Negative.?Miscellaneous:?Marital status: . 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 ???Nonsmoker; no alcohol. * Medications:?TakingLipitor 8 0 [...] Procedure Codes:?3017F COLOR ECTAL CA SCREEN DOC [id number] TOBACCO NON-TKUDY2689 BP SCR NOT PRFRM REC REASON NOS * Preventive Medicine:? ??Counseling:?Care goal follow-up plan:?Above Normal BMI Follow-up?Giving encouragement to exercise,?BMI management provided?Yes.? * Follow Up:?prn * * Sign off status: Completed true * Provider:?Matheus Nguyen MD Date:? 024 Generated for Jose Cruzi jovanna/Christian/eTransmitting on:?08/26/2024 01:03 PM EDT History and Physical Notes * HPI [...]
--- OUTSIDE RECORDS SUMMARY | 2024-08-26 13:04 | XMS_ITS ---
Author Organization [facility] Address [address] [place] [address] Care Team Providers Care Sewing Machine Attachment Tester Name Role Phone Benedicto Kay MD Primary Care Provider Unavaila Matheus Carter [phone] REASON FOR VISIT screening, hx polyps Problems Problem Type SNOMED Code ICD Code Onset Dates Problem Status W/U Status Risk Notes Problem Diverticulosis o f large intestine without perforation or abscess without bleeding (K57.30) Active confirmed Encounters Encounter Location Date Provider Diagnosis [facility] Outpatient [address] [place] [phone] 10/18/2023 Matheus Nguyen Colon cancer scree trent [...] Notes * KRIS CORTESDOB:1965 (59 yo M)Acc No.[id number]:10/18/2023 COLON WITH MAC Patient:?KRIS CORTES Provider:?Matheus Nguyen MD :1965???Age:58 Y???Sex:Male Russel e:10/18/2023 Address:[address] [place] [address] , [id number] Pcp:Benedicto Kay MD Subjective: * Chief Complaints: * ???1. Screening, hx polyps. * Medical History:? Objective: * Vitals:? Assessment: * Assessment: 1.?Colon cancer screening - Z12.11 (Primary)???2.?Colon polyps - K63.5???3.?Diverticulosis of large intestine without perforation or abscess without bleeding - K57.30???4.?Other hemorrhoids - K64.8??? Plan: * Treatment: * Procedure Codes:?66903 LESIO N REMOVAL COLONOSCOPY, Modifiers: PT * * The named appointment provid er may or may not be the originator of this progress note, and it is not deemed complete until electronically signed by the appointment provider. Sign off status: Pending * Provider:?Matheus Nguyen MD Date:? 024 Generated for Diaz nugent/Christian/eTransmitting on:?08/26/2024 01:03 PM EDT
--- OUTSIDE RECORDS SUMMARY | 2024-08-26 13:04 | XMS_ITS | Patient Health Record ---
Author Organization [facility] Address [address] [place] [address] Care Team Providers Care Loss Prevention Officer Name Role Phone Benedicto Kay MD Primary Care Provider Matheus Montgomery [phone] Allergies No Known Allergies Results Component Value Reference Range Notes Glucose, Whole Blood Reviewed date:10/18/2023 02:23:17 PM Interpretation: Performing Lab:[facility], [address] [place] [phone] Notes/Report: Glucose, Whole Blood 217 60-115 mg/dL METER # : [id number] Pathology Reviewed date:11/07/2023 01:13:27 AM Interpretation: Performing Lab:[facility], [address] [place] [phone] Notes/Report: ---- Name: Kris Pool Age/Sex: 58/M : 1965 Unit#: [id number] Attend Dr: Matheus Nguyen MD Re10/18/23 Status : [facility] Location: [facility] Disch: ---- SPEC : [id number] RECD : 10/18/23 STATUS: RUI ZHU NUM: [id number] AMANDA: 10/18/23-7 [facility] DR: Matheus Nguyen MD ENTERED: 10/18/23 19 [...] CEDS Copies To: Benedicto Kay MD [address] [place] [address] Matheus Nguyen MD [facility] [address] [place] [address] ---- Signed (signature on file) Jose Solorio MD 10/20/23 1543 ---- END OF REPORT Reason For Referral Referring Provider First Name Benedicto Referring Provider Last Name Rahul Referring Provider Speciality General Pr actice Referred Organization [facility] Referred Provider Matheus Nguyen Referred Address [address] [place] [address],[facility] [address],[place], [place],[address], Referred Provider Specialty Gastroentero logy General Notes Dozier,Leslie 024 09:52:43 AM EDT > pt called back and spoke with salazar guthrie and chose his pcp as Dr. Kay. Ref # [id number]. I then called Dr. Hector office and [...] Status Risk Notes Problem Colon cancer screening (312714321) Colon cancer screening (Z12.11) Active confirmed Problem 922309199 Encounter for screening for malignant neoplasm of colon (Z12.11) Active confirmed Problem History of adenomatous polyp of colon (158848801) History of adenomatous polyp of colon (Z86.010) Active confirmed Problem Diverticulosis o f large intestine without perforation or abscess without bleeding (K57.30) Active confirmed Problem [id number] Preprocedural examination (Z01.818) Active confirmed Problem Irritable bowel syndrome characterized by constipation (530005724) Irritable bowel syndrome with constipation (K58.1) Active confirmed Vital Signs Temperature 97.5 degrees Fahrenheit 09/13/2023 Blood pressure diastolic 00 mm Hg 09/13/2023 Height 72 in 09/13/2023 Blood pressure systolic 000 mm Hg 09/13/2023 Weight 224 lb 2 oz lbs 09/13/2023 BMI 30.39 kg/m2 09/13/2023 Encounters Encounter Location Date Provider Diagnosis [facility] Outpatient [address] [place] [phone] 10/18/2023 Matheus Nguyen Colon cancer screeni ng Z12.11 ; Colon polyps K63.5 ; Diverticulosis of large intestine without perforation or abscess without bleeding K57.30 and Other hemorrhoids K64.8 [facility] [address] [place] [phone] 09/13/2023 Matheus Nguyen History of adenomato us polyp of colon Z86.010 ; Irritable bowel syndrome with constipation K58.1 and Colon cancer screening Z12.11 [facility] [address] [facility] [address] [place] [phone] 10/16/2023 Matheus Nguyen Assessments Encounter Date Diagnosis [...] Insured Coverage Start Date Coverage End Date [facility] [employer] CLAIMS [address] [place] [address] [id number] KRIS POOL Self - patient is the insured Medical (General) History Medical History History ICD Code Denies CVA,Lung disease,renal disease Hypertension IDDM [place] 2006 with stents and 2 V CABG [...]
== END 2024-08-26 13:12 | disposition home or self-care (01) ==
LOC: HO.HOS 12:43
PROVIDERS: PCP Physician Assistant; Visit Provider Orthopaedic Surgery
DX: M17.0 Bilateral primary osteoarthritis of knee (principal)
CPT/HCPCS: 99213

== ENCOUNTER 2024-09-18 10:31 | Outpatient (AMB) | payer BC, SELFPAY ==
--- NOTE | 2024-09-18 10:43 | A.OFFPC_ITS ---
Vital Signs 09/18/24 10:47 Height 6 ft Weight 221 lb 8 oz BMI 30.0 BP 130/64 Blood Pressure Location Rt brachial Position Sitting Pulse 51 Pulse Source Pulse Oximeter Temp 96.9 F Temp Source Temporal Artery Scan Pulse Oximetry (%) 96 Oxygen Delivery Method Room Air Intake Visit Reasons: f/u A1C 8.8 Intake Note: Patient is here to follow up on DM, AAA, CAD. Director Pharmacy Services Required: No Psychological Examiner: Not Required per policy Accompanied by: Self / Same As Patient Allergies No Known Allergies [No Known Allergies*] Allergy (Verified 09/18/24 11:00) Medication List - Last Reconciled 09/18/24 by Sudhakar Washington PA-C aspirin (Adult Aspirin Regimen) 81 mg PO DAILY atorvastatin 80 mg PO DAILY blood pressure test kit-large As directed flash glucose sensor As directed insulin aspart U-100 (Novolog FlexPen U-100 Insulin aspart) 1 sliding scale dose subcut USEASDIRECTD insulin glargine 40 units (0.4 mL) subcut BEDTIME metoprolol tartrate 25 mg PO BID Tobacco use date assessed: 09/18/24 Dental Screening Dental Screen Date: 06/10/24 HPI f/u A1C 8.8 HPI Details Patient is a 59-year-old male here today for follow-up visit. Previous PCP was Dr. Kay. Patient has a past medical history significant for diabetes, hyperlipidemia, coronary artery disease in an abdominal aortic aneurysm, knee osteoarthritis. Concern---> Constipation persists despite OTC interventions, prompting an exploration for underlying causes such as gastroparesis due to diabetes. .. Type 1 Diabetes: Patient followed by visitor services assistant at [facility]. Continues on insulin therapy, he has been considering an insulin pump for better glycemic control. his diabetes has not been well controlled with most recent A1c at 8.8. Due to his already established coronary artery disease will likely benefit from a GLP 1. Will start Ozempic .. Abdominal aortic aneurysm: Most recent ultrasound done in June of 2024 showing aneurysm at 3.2 cm. .. Knee osteoarthritis: Has been followed by Orthopedics and getting cortisone injections though have not been fairly effective on reducing his pain. .. Coronary artery disease: Has been quite some time since his last lipid panel, he continues on high potency statin and aspirin therapy. [facility] Medical History (Updated 09/18/24 @ 13:27 by Sudhakar Washington PA-C) Hx of cardiac pacemaker IBS (irritable bowel syndrome) Osteoarthritis AAA (abdominal aortic aneurysm) CAD (coronary artery disease) HTN (hypertension) Diabetes Abdominal aortic aneurysm (AAA) 3.0 cm to 5.5 cm in diameter in male Surgical History Hx of left inguinal hernia repair Hx of arthroscopy of knee H/O colonoscopy Status post double vessel coronary artery bypass Family History Mother Alzheimer disease Mental health disorder Father No problems noted. 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 1. Little interest or pleasure in doing things: not at all 2. Feeling down, depressed, or hopeless: not at all 3. Trouble falling or staying asleep, or sleeping too much: not at all 4. Feeling tired or having little energy: not at all 5. Poor appetite or overeating: not at all 6. Feeling bad about yourself - or that you are a failure or have let yourself or your family down: not at all 7. Trouble concentrating on things, such as reading the newspaper or watching television: not at all 8. Moving or speaking so slowly that other people could have noticed. Or the opposite - being so fidgety or restless that you have been moving around a lot more than usual: not at all 9. Thoughts that you would be better off or of hurting yourself in some way: not at all Total score: 0 Depression Screening Interpretation: Negative Depression Screening Done: Yes 60266 - PHQ-9 Billing: Yes Source: Developed by Drs. Matheus House, Conchita B.W. Gutierrez Jacome and colleagues, with an educational lee ann from [employer]. Thrive Questionnaire Date Thrive assessed: 09/18/24 I am a: Patient What is your living situation today?: I have a steady place to live Within the past 12 months, did the food you bought not last and you didn't have the money to get more?: Never true Within the past 12 months, did you worry whether your food would run out before you got money to buy more?: Never true Do you have trouble paying for medicines?: No Do you have trouble getting transportation to medical appointments?: No Do you have trouble paying your heating and electricity bill?: No Do you have trouble taking care of your child, family member or friend?: No Do you have trouble with day-to-day activities such as bathing, preparing meals, shopping, managing finances, etc.?: No Are you currently unemployed and looking for a job?: No Are you interested in more education?: No Please select the resources that you would like help with: None Currently or been in a relationship where the following occur: I choose not to answer THRIVE Score: 0 AUDIT C Alcohol Use Questionnaire (AUDIT-C) 1. How often do you have a drink containing alcohol?: Never Total Score: 0 JAMSHID-7 AMB Questionnaire JAMSHID-7 Date JAMSHID - 7 assessed: 06/10/24 Feeling nervous, anxious, or on edge: 0 = Not at all Not being able to stop or control worryin = Not at all Worrying too much about different things: 0 = Not at all Trouble relaxin = Not at all Being so restless that it is hard to sit still: 0 = Not at all Becoming easily annoyed or irritable: 0 = Not at all Feeling afraid as if something awful might happen: 0 = Not at all Total JAMSHID-7 score (0-4 normal; 5-9 mild; 10-14 moderate; 15-21 severe): 0 Source: Developed by Drs. Matheus House, Gutierrez Pinedo and colleagues, with an educational lee ann from [employer]. Review of Systems Const Denies headache(s) Eyes Denies loss of vision ENT Denies vertigo, Denies dizziness, Denies headache(s) and Denies sore throat Card Denies chest pain, Denies leg edema and Denies lightheadedness Resp Denies cough, Denies hemoptysis and Denies wheezing GI Denies abdominal pain, Denies melena, Denies constipation, Denies diarrhea and Denies vomiting Denies dysuria, Denies urinary frequency and Denies urinary urgency Musc Denies arthralgias, Denies joint swelling, Denies numbness and Denies tingling Neuro Denies Abnormal speech present, Denies behavioral changes, Denies vertigo, Denies dizziness, Denies headache(s), Denies loss of vision, Denies memory loss, Denies numbness and Denies tingling Psych Denies anxiety, Denies behavioral changes, Denies depression, Denies memory loss and Denies panic attacks Roosevelt/Lymph Denies easy bleeding and Denies easy bruising Aller/Immun Denies wheezing Physical exam (Primary Care) Vital Signs: Last Vital Signs Temp 96.9 F 09/18/24 10:47 Pulse 51 09/18/24 10:47 BP 130/64 09/18/24 10:47 Pulse Ox 96 09/18/24 10:47 Oxygen Delivery Method Room Air 09/18/24 10:47 BMI result Body Mass Index 30.0 BMI Assessment/Plan discussion: High BMI High, discussed plan: lifestyle, weight reduction, dietary and physical activity Tobacco/Smoking Status: Tobacco use Status Tobacco use date assessed 09/18/24 09/18/24 10:55 Patient Tobacco Use Status Never used Tobacco 09/18/24 10:55 Tobacco use type Cigarette 09/18/24 10:55 e-Cigarette/Vaping Use Never Used 09/18/24 10:55 PHQ-9: PHQ-9 Score PHQ-9: Total score 0 09/18/24 11:07 Depression Screening Interpretation: Negative Thrive Assessment: Date of Thrive Assessment Date Thrive assessed 09/18/24 09/18/24 10:55 Currently or been in a relationship where the following occur: I choose not to answer Const Other: Obese General: healthy appearing, no acute distress, alert and awake Nutritional Appearance: well nourished Orientation/consciousness: oriented to person, oriented to place and oriented to time HENMT Ears: TM's normal bilaterally General nose exam: Normal nasal mucous membranes and turbinates present Eyes Conjunctivae: conjunctivae normal Sclerae: sclerae normal Pupils: Equal, round and reactive pupils present Neck Neck: Yes no lymphadenopathy and Yes no JVD Thyroid: Thyroid normal Carotids: no bruits Resp Effort & Inspection: normal respiratory effort and not tachypneic Auscultation: no crackles, no rales, no rhonchi and no wheezes Cardio Rate: regular rate Rhythm: regular rhythm Heart sounds: no murmurs and normal S1 and S2 GI Palpation (GI): Soft to palpation, nontender, no hepatomegaly and no splenomegaly Auscultation: normal bowel sounds Skin General skin exam: no rashes or lesions noted and dry skin Neuro General: oriented to person, oriented to place and oriented to time Cranial nerves: Yes Equal, round and reactive pupils present Speech: No Abnormal speech present Gait exam (Neuro): Normal gait present Motor exam (neuro): no tremor noted Extrem Right upper extremity: full ROM Left upper extremity: full ROM Right lower extremity: full ROM; no edema Left lower extremity: full ROM; no edema Psych Mental Status: mental status grossly normal Speech and movement: Normal speech and movement present Affect: normal affect Attitude: cooperative Thought process: Normal thought process present Results AMB Hemoglobin A1c AMB Hemoglobin A1c 9.2 % Last Edit by DENNISE Knox on 09/18/24 11:09 Results Reviewed Results Reviewed: Laboratory Last Values Hgb A1c (Clinic) 9.2 % (4.0-6.0) H 09/18/24 10:43 Coding Level of Care Code Est Pt Level 4 (99044) Diagnoses Type 1 diabetes mellitus with other circulatory complication E10.59 Diabetes mellitus complication detail: with other circulatory complications Diabetes mellitus complication status: with circulatory complication Diabetes mellitus type: type 1 Primary hypertension I10 Hypertension type: primary hypertension Coronary artery disease involving [place] coronary artery of [place] heart without angina pectoris I25.10 Associated angina: without angina Coronary Disease-Associated Artery/Lesion type: [place] artery [place] vs. transplanted heart: [place] heart GREGORIO (obstructive sleep apnea) G47.33 Slow transit constipation K59.01 Constipation type: slow transit constipation Gastroparesis K31.84 Class 1 obesity E66.811 Abdominal aortic aneurysm (AAA) 3.0 cm to 5.5 cm in diameter in male I71.4 Additional Codes PHQ-9 - 57650 - PHQ-9 Billing: Yes ([id number]) Assessment & Plan Assessment & Plan (1) Diabetes: Code(s): E11.9 - Type 2 diabetes mellitus without complications Category: Medical Qualifiers: Diabetes mellitus complication detail: with other circulatory complications Diabetes mellitus complication status: with circulatory complication Diabetes mellitus type: type 1 Qualified Code(s): E10.59 - Type 1 diabetes mellitus with other circulatory complications Plan: Patient has had type 1 diabetes for many years, continues on insulin therapy. Does follow an visitor services assistant at [facility]. He is considering an insulin pump. Does use a continues glucose monitor which has been helpful. Will start GLP 1 to help him reduce his cardiovascular overall risk as he has establish coronary artery disease. Goal A1c is to be below 7.0 (2) HTN (hypertension): Code(s): I10 - Essential (primary) hypertension Category: Medical Qualifiers: Hypertension type: primary hypertension Qualified Code(s): I10 - Essential (primary) hypertension Plan: Patient's blood pressure acceptable today in office. Will continue his current dose of antihypertensive medication with goal blood pressure to be below 140/90 (3) CAD (coronary artery disease): Code(s): I25.10 - Atherosclerotic heart disease of [place] coronary artery without angina pectoris Category: Medical Qualifiers: Associated angina: without angina Coronary Disease-Associated Artery/Lesion type: [place] artery [place] vs. transplanted heart: [place] heart Qualified Code(s): I25.10 - Atherosclerotic heart disease of [place] coronary artery without angina pectoris Plan: Patient followed by Cardiology at [facility]. Continues on high potency statin and aspirin. Goal optimal LDL to be below 70 (4) GREGORIO (obstructive sleep apnea): Code(s): G47.33 - Obstructive sleep apnea (adult) (pediatric) Category: Medical Plan: Patient has concerns about obstructive sleep apnea, was told to get a sleep study by his cheese wrapper. Does have moderate risk for sleep apnea. Will send for home sleep study for evaluation (5) Constipation: Code(s): K59.00 - Constipation, unspecified Category: Medical Qualifiers: Constipation type: slow transit constipation Qualified Code(s): K59.01 - Slow transit constipation Plan: Evaluate for diabetic gastroparesis with gastric emptying study. Maintain current supportive measures with MiraLAX and Metamucil. (6) Gastroparesis: Code(s): K31.84 - Gastroparesis Category: Medical Plan: As above (7) Class 1 obesity: Code(s): E66.811 - Obesity, class 1 Category: Medical Plan: Patient does understand his BMI is 30 will work on trying to be more physically active and adapting to better eating habits to reduce his weight (8) Abdominal aortic aneurysm (AAA) 3.0 cm to 5.5 cm in diameter in male: Code(s): I71.4 - Abdominal aortic aneurysm, without rupture Category: Medical Plan: Patient continues to follow his abdominal aortic aneurysm. Most recent ultrasound showing a 3.3 cm aneurysm though has not changed much since previous imaging in 2020. Orders: Orders AMB Hemoglobin A1c Today E11.9 - Type 2 diabetes mellitus without complications Lipid Panel Today E78.5 - Hyperlipidemia, unspecified Complete Blood Count no Diff Today E78.5 - Hyperlipidemia, unspecified RT home sleep study Today G47.33 - Obstructive sleep apnea (adult) (pediatric) Microalbumin, Random (w Creat) Today E10.59 - Type 1 diabetes mellitus with other circulatory complications Comprehensive [place]. Panel Fast Today E78.5 - Hyperlipidemia, unspecified NM gastric emptying study Today K31.84 - Gastroparesis Medications: New semaglutide (Ozempic) for 4 weeks 0.25 mg (0.368 mL) subcut QWEEK 3 mL 1RF 4 weeks E10.59 - Type 1 diabetes mellitus with other circulatory complications Patient Instructions: Goal: A1c to be below 7.0, LDL optimally below 70 Barriers: Adherence to physical activity and healthy eating habits
[2024-09-18 10:47] VITALS: BP 130/64; PULSE 51; TEMP 36.1; O2SAT 96
--- OUTSIDE RECORDS SUMMARY | 2024-09-18 11:12 | XMS_ITS ---
Author Organization [facility] Address [address] [place] [address] Care Team Providers Care Bonding Molder Name Role Phone Benedicto Kay MD Primary Care Provider Unavaila Matheus Carter [phone] REASON FOR VISIT new insurance information Encounters Encounter Location Date Provider Diagnosis [facility] [address] [place] [address] 10/16/2023 Matheus Nguyen Plan Of Treatment No Information Progress Notes * KRIS CORTESDOB:1965 (58 yo M)Acc No.[id number]:10/16/2023 Patient:?KRIS CORTES :1965???Age:58 Y???Sex:Male Address:[address] , [place], [address] * true * Date:? Generated for Diaz nugent/Christian/eTransmitting on:?09/18/2024 11:12 AM EDT
== END 2024-09-18 11:28 | disposition home or self-care (01) ==
LOC: HO.HMCH 10:31
PROVIDERS: PCP Physician Assistant; Visit Provider Physician Assistant
DX: E11.43 Type 2 diabetes mellitus with diabetic autonomic (poly)neuropathy (principal); I10 Essential (primary) hypertension; Z68.30 Body mass index [BMI] 30.0-30.9, adult; E66.811 Obesity, class 1; I25.10 Atherosclerotic heart disease of native coronary artery without angina pectoris; G47.33 Obstructive sleep apnea (adult) (pediatric); K59.01 Slow transit constipation; K31.84 Gastroparesis; I71.40 Abdominal aortic aneurysm, without rupture, unspecified

== ENCOUNTER → 2024-09-18 10:31 | Outpatient (BNVA) | payer BC, SELFPAY | PROVIDERS: PCP Physician Assistant; Visit Provider Physician Assistant | DX: I25.10 Atherosclerotic heart disease of native coronary artery without angina pectoris (principal); E10.59 Type 1 diabetes mellitus with other circulatory complications; I71.40 Abdominal aortic aneurysm, without rupture, unspecified; E78.5 Hyperlipidemia, unspecified; M17.10 Unilateral primary osteoarthritis, unspecified knee; I10 Essential (primary) hypertension; G47.33 Obstructive sleep apnea (adult) (pediatric); K59.01 Slow transit constipation; K31.84 Gastroparesis; E66.811 Obesity, class 1; Z68.30 Body mass index [BMI] 30.0-30.9, adult; Z79.4 Long term (current) use of insulin | CPT/HCPCS: 83036; 96127 ==

== ENCOUNTER → 2024-10-16 07:57 | Outpatient (REF) | payer BC, SELFPAY ==
--- NOTE | ~2024-10-16 | NM_ITS ---
EXAMINATION: NM RADIONUCLIDE SOLID FOOD GASTRIC EMPTYING 4-HOUR STUDY CLINICAL INFORMATION: Type 1 diabetes with gastroparesis and postprandial bloating. COMPARISON: None TECHNIQUE: A standard meal consisting of 4 oz of Egg Beaters brand tagged with 0.76 microcuries Tc-99m Sulfur Colloid, 8 oz water and 2 slices of toast with jelly was administered orally to the patient. Images were obtained using a dual head gamma camera in the anterior and posterior projections over of the stomach immediately post ingestion and at hourly intervals up to 4 hours post ingestion. The anterior and posterior counts at each time interval were averaged using the geometric mean and expressed as percentage of the immediate post ingestion counts. FINDINGS: There is good visualization of activity in the stomach immediately post ingestion. As the study progresses, there is good clearance of activity from the stomach and visualization of progressively increasing small bowel activity. By the end of the study, there is almost no retention noted in the stomach. Retention in the stomach at each time interval was: 1 hour and 29% (normal 37%-90%) 2 hours 11% (normal 30%-60%) 3 hours 8% 4 hour imaging not performed NM/NM gastric emptying study IMPRESSION: Normal 3-hour solid food gastric emptying study. 4 hour imaging not performed and was not needed. For solid meal, rapid gastric emptying is less than 30% at 60 minutes. Delayed gastric emptying criteria is more than 60% remaining at 120 minutes or more than 10% at 240 minutes. The 4-hour value is the best discriminator of a normal or abnormal result). Gastric emptying study grading per JNMT Consensus Recommendations in 2008 (https://tech.snmjournals.org/content/36/1/44) Grade 1 (mild retention): 11-20% at 4h Grade 2 (moderate retention): 21-35% at 4h Grade 3 (severe retention): 36-50% at 4h Grade 4 (very severe retention): >50% retention at 4h Electronically signed by: Tony Ramirez MD 10/16/2024 12:11 PM EDT
--- OUTSIDE RECORDS SUMMARY | 2024-10-16 07:59 | XMS_ITS | Patient Health Record ---
Author Organization [facility] Address [address] [place] [address] Care Team Providers Care Trapper Bird Name Role Phone Benedicto Kay MD Primary Care Provider Unavaila ble Matheus Nguyen Unavailable [phone] Allergies No Known Allergies Results Component Value Reference Range Notes Glucose, Whole Blood Reviewed date:10/18/2023 02:23:17 PM Interpretation: Performing Lab:[facility], [address] [place] [phone] Notes/Report: Glucose, Whole Blood 217 60-115 mg/dL METER # : [id number] Pathology Reviewed date:11/07/2023 01:13:27 AM Interpretation: Performing Lab:[facility], [address] [place] [phone] Notes/Report: Reason For Referral Referring Provider First Name Benedicto Referring Provider Last Name Rahul Referring Provider Speciality General Pr actice Referred Organization [facility] Referred Provider Matheus Nguyen Referred Address [address] [place] [address],[address],[place], [place],[address], Referred Provider Specialty Gastroentero logy General Notes Leslie Powers 024 09:52:43 AM EDT > pt called back and spoke with salazar guthrie and chose his pcp as Dr. Kay. Ref # [id number]. I then called Dr. Hector office and [...] Status Risk Notes Problem Colon cancer screening (053503372) Colon cancer screening (Z12.11) Active confirmed Problem 231423744 Encounter for screening for malignant neoplasm of colon (Z12.11) Active confirmed Problem History of adenomatous polyp of colon (429568243) History of adenomatous polyp of colon (Z86.010) Active confirmed Problem Diverticulosis o f large intestine without perforation or abscess without bleeding (K57.30) Active confirmed Problem 557116633711475 Preprocedural examination (Z01.818) Active confirmed Problem Irritable bowel syndrome characterized by constipation (724405661) Irritable bowel syndrome with constipation (K58.1) Active confirmed Encounters Encounter Location Date Provider Diagnosis [facility] [address] [place] [phone] 10/18/2023 Matheus Nguyen Colon cancer makenziee trent Z12.11 ; Colon polyps K63.5 ; [...] Insured Coverage Start Date Coverage End Date [facility] [employer] [address] [place] [address] [id number] KRIS CORTES Self - patient is the insured Medical (General) History Medical History History ICD Code Denies CVA,Lung disease,renal disease Hypertension IDDM [place] 2006 with stents and 2 V CABG [...]
== END ==
LOC: HO.NUCMED 07:57
PROVIDERS: PCP Physician Assistant; Visit Provider Physician Assistant
DX: K31.84 Gastroparesis (principal)
CPT/HCPCS: 78264; A9500

== ENCOUNTER → 2024-10-16 07:59 | Outpatient (BNV) | payer BC, SELFPAY | PROVIDERS: PCP Physician Assistant; Visit Provider Radiology Diagnostic Radiology | DX: K31.84 Gastroparesis (principal) | CPT/HCPCS: 78264 ==

== ENCOUNTER → 2024-11-28 09:00 | Outpatient (REF) | payer BC, SELFPAY ==
--- OUTSIDE RECORDS SUMMARY | 2024-11-28 09:18 | XMS_ITS | Patient Health Record ---
Author Organization [facility] Address [address] [place] [address] Care Team Providers Care Rail Car Welder Name Role Phone Benedicto Kay MD Primary Care Provider Matheus Montgomery Unavailable [phone] Allergies No Known Allergies Reason For Referral No Information Medications Medication [...] Status Risk Notes Problem Colon cancer screening (504101272) Colon cancer screening (Z12.11) Active confirmed Problem 297640080 Encounter for screening for malignant neoplasm of colon (Z12.11) Active confirmed Problem History of adenomatous polyp of colon (547533242) History of adenomatous polyp of colon (Z86.010) Active confirmed Problem Diverticular disease of colon (537181889) Diverticulosis of large intestine without perforation or abscess without bleeding (K57.30) Active confirmed Problem 089829742075924 Preprocedural examination (Z01.818) Active confirmed Problem Irritable bowel syndrome characterized by constipation (623119195) Irritable bowel syndrome with constipation (K58.1) Active confirmed Plan Of Treatment Future Test Test Name Order Date COLONOSCOPY 12/13/2018 COLONOSCOPY 09/13/2023 Insurance Providers Payer Name Payer Address Payer Phone Subscriber Number Group Number Insured Name Patient Relationship to Insured Coverage Start Date Coverage End Date [facility] [employer] PROFESSIONAL CLAIMS [address] [place] [address] [id number] KRIS CORTES Self - patient is [...]
== END ==
LOC: HO.SL 09:00
PROVIDERS: PCP Physician Assistant; Visit Provider Physician Assistant
DX: G47.33 Obstructive sleep apnea (adult) (pediatric) (principal); R06.83 Snoring
CPT/HCPCS: 95806

== ENCOUNTER 2025-01-02 04:24 | Emergency (ER) | payer BC, SELFPAY ==
--- OUTSIDE RECORDS SUMMARY | 2023-10-18 06:30 | XMS_ITS ---
Author Organization [facility] Address [address] [place] [address] Care Team Providers Care Coupon And Bond Collection Clerk Name Role Phone Benedicto Kay MD Primary Care Provider Yossia Matheus Carter Unavailable [phone] REASON FOR VISIT screening, hx polyps Problems Problem Type SNOMED Code ICD Code Onset Dates Problem Status W/U Status Risk Notes Problem Diverticular disease of colon (465125593) Diverticulosis of large intestine without perforation or abscess without bleeding (K57.30) Active confirmed Encounters Encounter Location Date Provider Diagnosis [facility] [address] [place] [phone] 10/18/2023 Matheus Nguyen Colon cancer scree trent [...] Notes * KRIS CORTESDOB:1965 (59 yo M)Acc No.[id number]:10/18/2023 COLON WITH MAC Patient: KRIS NEVAREZ Provider: Yana Nguyen MD :1965 A ge:58 Y S ex:Male Date:10/18/2023 Address:[address] [place] [address] , [place], [id number] Pcp:Benedicto Kay MD Subjective: * Chief Complaints: [...] 0 10/18/2023 Generated for Diaz nugent/Christian/Milleritting on: 0 01/02/2025 05:01 AM EDT
[2025-01-02 04:26] VITALS: BP 180/85; PULSE 61; RESP 16; TEMP 36.1; O2SAT 97; BMI 30.5
--- NOTE | 2025-01-02 04:52 | ED.GENADULT ---
HPI - General Adult General Chief complaint: General Medical Stated complaint: diabetic sugar keeps dropping Time Seen by Provider: 01/02/25 04:37 History of Present Illness ED Provider: Alessandra VUONG narrative: The patient is a 59-year-old male. He says that for a long time he was considered to be a type 2 diabetic but for the last few years he says he has been considered a type 1 diabetic. He is on Lantus and NovoLog. He was recently started on weekly Ozempic. He has taken a total of 4 doses of Ozempic, his last dose was yesterday morning, on Monday morning. The patient says that he was feeling fine on Monday evening. He took his usual dose of 60 units of Lantus insulin. Yesterday morning he took a dose of Ozempic. During the day yesterday his blood sugars were lower than usual. He gave himself a very small dose of NovoLog just before lunch. In the afternoon he went to the [employer] [facility], [facility]. He says that his wearable continuous glucose monitoring device (a VeriFoneyle Gaston device) was telling him throughout the day and during the evening that his blood sugars were low, sometimes as low as 50. He was therefore eating a great deal of food throughout the afternoon in the evening trying to keep his blood sugar from vomiting. He did not go to sleep tonight because he was worried about becoming hypoglycemic during his sleep and ultimately he comes to the emergency room not having slept at all. His blood sugar when he got here, according to his device, was 80. When we checked a fingerstick blood sugar on our device it was 379. At the same time the patient checked his device which measured a glucose of 87. He says at this point he feels bloated from eating so much food. He does not feel ill otherwise however. No fever, sweats, chills. No cough or sputum. No chest pain or shortness of breath. No abdominal pain, nausea, vomiting. Related Data Home Medications ?Medication ?Instructions ?Recorded ?Confirmed flash glucose sensor #1 ea 04/15/20 09/18/24 aspirin 81 mg tablet,delayed 81 mg PO DAILY 06/10/24 09/18/24 release (Adult Aspirin Regimen) insulin aspart U-100 100 unit/mL 1 sliding scale dose subcut 06/10/24 09/18/24 (3 mL) subcutaneous pen (Novolog USEASDIRECTD FlexPen U-100 Insulin aspart) Previous Rx's ?Medication ?Instructions ?Recorded blood pressure test kit-large #1 ea 04/05/21 insulin glargine 100 unit/mL (3 40 unit (0.4 mL) subcut BEDTIME 09/08/22 mL) subcutaneous pen #15 mL semaglutide 0.25 mg or 0.5 mg (2 0.25 mg (0.368 mL) subcut QWEEK 4 09/18/24 mg/3 mL) subcutaneous pen injector weeks #3 mL (Ozempic) metoprolol tartrate 25 mg tablet 25 mg PO BID #180 tabs 10/15/24 sildenafil 100 mg tablet (Viagra) 50 mg (1/2 x 100 mg) PO DAILY PRN 10/15/24 erectile dysfunction 5 days #5 tabs atorvastatin 80 mg tablet 80 mg PO DAILY #90 tabs 12/09/24 Allergies Allergy/AdvReac Type Severity Reaction Status Date / Time No Known Allergies (No Known Allergy Verified 01/02/25 04:31 Allergies*) Review of Systems Review of Systems: Yes all other systems are reviewed and are negative PMF Past Medical History Medical History (Updated 01/02/25 @ 06:54 by Emil Aparicio MD) Hx of cardiac pacemaker IBS (irritable bowel syndrome) Osteoarthritis AAA (abdominal aortic aneurysm) CAD (coronary artery disease) HTN (hypertension) Diabetes Abdominal aortic aneurysm (AAA) 3.0 cm to 5.5 cm in diameter in male Surgical History Hx of left inguinal hernia repair Hx of arthroscopy of knee H/O colonoscopy Status post double vessel coronary artery bypass Family History Family History Mother Alzheimer disease Mental health disorder Father No problems noted. 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 He does not appear acutely ill. Orientation/consciousness: patient oriented x3 HENMT Other: The face is symmetrical. ?Mucous membranes moist. Eyes Other: Pupils are round equal, conjunctivae are clear, extraocular movements intact General: appearance normal, both eyes and all related structures Neck Neck: Yes normal visual inspection, Yes full ROM and Yes no JVD Resp Effort & Inspection: normal respiratory effort Auscultation: clear to auscultation bilaterally Cardio Rate: regular rate Rhythm: regular rhythm Heart sounds: S1 normal heart sound present and S2 normal heart sound present GI Other: Abdomen is soft and nontender Skin Other: Skin is pale and dry Neuro General: patient oriented x3, tone normal, moves all extremities, no focal motor deficits and CN's II-XI intact bilaterally Extrem Other: There is no calf swelling or tenderness. No asymmetry. No peripheral edema. Medications Administered Discontinued Medications Generic Name Dose Route Start Last Admin Trade Name Katerina PRN Reason Stop Dose Admin Insulin Glargine 40 unit 01/02/25 05:42 01/02/25 06:04 Insulin Glargine,Hum.Rec.Anlog 100 Unit/Ml 10 Ml Vial SUBCUT 01/02/25 05:43 40 unit ONCE ONE Administration Medical Decision Making Medical Decision Making MDM Narrative: The patient is an insulin-requiring diabetic who wears an attached glucose monitor on his arm which was telling him throughout the day yesterday that his blood sugars were running low. He ate a great deal of food and he was then afraid to go to sleep tonight because of fear of becoming hypoglycemic. Ultimately he came to the emergency room. On arrival here he was found to be hyperglycemic by fingerstick was 387. He checked his blood sugar by his freestyle Gaston device at the same time. His device measured a glucose of 80. The patient did not look clinically ill. Blood work was sent to the lab in his basic metabolic panel came back with a glucose of 420. This seems to confirm that the problem is not that the patient is hypoglycemic but that the patient has wearable device is not working properly. The patient was given 40 units of Lantus insulin (he would have normally taken 60 units yesterday evening). A repeat fingerstick blood glucose came back at 380. The patient has a new freestyle Gaston device at home. Apparently they have to be changed every 2 weeks. He was due to change the device today any how. My assumption is that the old device was in accurate. He will be discharged to go home and apply his new device and then check the accuracy of his new device with a fingerstick glucometer that he has a at home as well. Otherwise he will manage his blood sugars according to his usual sliding scales. He should contact his regular providers as needed for additional advice or return to the ER if worse. Lab Data 01/02/25 05:04 01/02/25 05:04 Labs: Lab Results 01/02/25 01/02/25 Range/Units 05:04 06:22 WBC 7.8 (4.8-10.8) X10*3/uL RBC 4.76 (4.60-5.80) X10*6/uL Hgb 14.3 (14.0-18.0) g/dl Hct 41.1 L (42.0-52.0) % MCV 86.3 (80.0-98.0) fL MCH 30.0 (27.0-33.0) pg MCHC 34.8 (31.0-36.0) g/dl RDW 12.5 (11.0-16.0) % Plt Count 297 (160-400) X10*3/uL MPV 10.5 (9.4-12.4) fL Immature Gran % (Auto) 0.1 (0.0-0.4) % Neut % (Auto) 53.2 (45-73) % Lymph % (Auto) 35.4 (20-40) % [place] % (Auto) 8.2 (2-11) % Eos % (Auto) 2.7 (0-4) % Baso % (Auto) 0.4 (0-2) % Lymph # (Auto) 2.8 (1.2-4.9) X10*3/uL [place] # (Auto) 0.6 (0.1-1.2) X10*3/uL Eos # (Auto) 0.2 (0.0-0.4) X10*3/uL Baso # (Auto) 0.0 (0.0-0.2) X10*3/uL Abs Immat Gran (auto) 0.01 (0.00-0.03) X10*3/uL Absolute Neuts (auto) 4.1 (2.0-8.3) x10*3/uL Absolute Nucleated RBC 0.000 (0.0-0.012) X10*3/uL Nucleated RBC % (auto) 0.0 (0.0-0.2) /100WBC Sodium 138 (135-145) mmol/L Potassium 4.0 (3.3-5.1) mmol/L Chloride 103 (96-108) mmol/L Carbon Dioxide 25 (22-29) mmol/L Anion Gap 14 (12-20) BUN 21 H (9-16) mg/dL Creatinine 1.15 (0.5-1.4) mg/dL Estim Creat Clear Calc 83.3 Estimated GFR > 60 POC Glucose 380 H* (60-115) mg/dL Random Glucose 420 H* (60-115) mg/dL Estimat Average Glucose 209 mg/dL Hemoglobin A1c % 8.9 H (<6.0) % Calcium 9.4 (8.4-10.2) mg/dL Total Bilirubin 0.4 (0.0-1.0) mg/dL AST 27 (5-37) U/L ALT 35 (0-40) U/L Alkaline Phosphatase 122 H (39-117) U/L Total Protein 7.2 (6.5-8.0) g/dL Albumin 4.1 (3.5-5.0) g/dL Urine Color Yellow Urine Appearance Clear Urine pH 6.5 (5.0-9.0) Ur Specific [place] >= 1.030 H (1.005-1.025) Urine Protein Negative (Neg-Trace) mg/dL Urine Glucose (UA) >=1000 H (Negative) mg/dL Urine Ketones Negative (Negative) mg/dL Urine Blood Negative (Negative) Urine Nitrite Negative (Negative) Ur Leukocyte Esterase Negative (Negative) Urine RBC 0-2 (0-2) /HPF Urine WBC 0-5 (0-5) /HPF Ur Squamous Epith Cells 0-2 (0-2) /HPF Urine Bacteria None Seen (None Seen) Hyaline Casts 0-2 (0-2) /LPF Discharge Plan Discharge Clinical Impression: Hyperglycemia Patient Disposition: Home, Self-Care Additional Instructions: I suspect the problem with your low blood sugars may has been machine error rather than actual low blood sugars. Please apply your new Freestyle Gaston device. Please correlate the accuracy of the new device with your traditional glucose meter. Please use your usual sliding scales to manage your insulin dosing for your blood sugar levels. You received 40 units of Lantus insulin here this morning (to partially replace the dose of Lantus you did not take yesterday evening). If you have any questions about how things are going please contact your primary care doctor's office or your loader operator for additional advice to see if there are things you can manage at home. If however you are significantly worse in any way please return to the emergency department. Prescriptions: No Action metoprolol tartrate 25 mg tablet 25 mg PO BID Qty: 180 3RF sildenafil [Viagra] 100 mg tablet 50 mg PO DAILY PRN (Reason: erectile dysfunction) 5 Days Qty: 5 1RF Rx Instructions: Take half tablet 1 hour prior to sexual activity atorvastatin 80 mg tablet 80 mg PO DAILY Qty: 90 2RF (DME) FreeStyle Gaston 14 Day Sensor Kit See Rx Instructions topical .MEDSUPPLY Qty: 1 Rx Instructions: As directed (DME) blood pressure test kit-large Kit See Rx Instructions .Route Qty: 1 0RF Rx Instructions: As directed insulin glargine 100 unit/mL (3 mL) insulin pen 40 unit subcut BEDTIME Qty: 15 6RF Ozempic 0.25 mg or 0.5 mg (2 mg/3 mL) pen injector 0.25 mg subcut QWEEK 28 Days Qty: 3 1RF Rx Instructions: for 4 weeks insulin aspart U-100 [Novolog FlexPen U-100 Insulin] 100 unit/mL (3 mL) insulin pen 1 sliding scale dose subcut USEASDIRECTD aspirin [Adult Aspirin Regimen] 81 mg tablet,delayed release (DR/EC) 81 mg PO DAILY Referrals: Sudhakar Washington PA-C [Primary Care Provider, Internal Medicine] Print Language: Togolese
--- OUTSIDE RECORDS SUMMARY | 2025-01-02 05:01 | XMS_ITS | Patient Health Record ---
Author Organization [facility] Address [address] [place] [address] Care Team Providers Care Dispensary Clerk Name Role Phone Benedicto Kay MD Primary Care Provider Matheus Montgomery Unavailable [phone] Allergies No Known Allergies Reason For Referral [...] Status Risk Notes Problem Colon cancer screening (555171881) Colon cancer screening (Z12.11) Active confirmed Problem 199969212 Encounter for screening for malignant neoplasm of colon (Z12.11) Active confirmed Problem History of adenomatous polyp of colon (443034957) History of adenomatous polyp of colon (Z86.010) Active confirmed Problem Diverticular disease of colon (281997703) Diverticulosis of large intestine without perforation or abscess without bleeding (K57.30) Active confirmed Problem 091447709110973 Preprocedural examination (Z01.818) Active confirmed Problem Irritable bowel syndrome characterized by constipation (490607224) Irritable bowel syndrome with constipation (K58.1) Active confirmed Plan Of Treatment Future Test Test Name Order Date COLONOSCOPY 12/13/2018 COLONOSCOPY 09/13/2023 Insurance Providers Payer Name Payer Address Payer Phone Subscriber Number Group Number Insured Name Patient Relationship to Insured Coverage Start Date Coverage End Date [facility] [employer] PROF[employer]AL CLAIMS [address] [place] [address] [id number] KRIS CORTES Self - patient is the insured Medical (General) History Medical History History ICD Code Denies CVA,Lung disease,renal disease Hypertension IDDM [place] 2006 with stents and 2 V CABG [...]
[2025-01-02 05:08] LABS: MANUAL DIFF FLAG NO
[2025-01-02 05:09] LABS: Hematocrit 41.1 % (42.0-52.0); Hemoglobin 14.3 g/dl (14.0-18.0); Imm Gran Abs Auto 0.01 X10*3/uL (0.00-0.03); Imm Gran Pct Auto 0.1 % (0.0-0.4); Lymphocytes Absolute Auto 2.8 X10*3/uL (1.2-4.9); Mean Corpuscular HGB Conc 34.8 g/dl (31.0-36.0); Mean Corpuscular Hemoglobin 30.0 pg (27.0-33.0); Mean Corpuscular Volume 86.3 fL (80.0-98.0); NRBC Abs Auto 0.000 X10*3/uL (0.0-0.012); NRBC Pct Auto 0.0 /100WBC (0.0-0.2); Platelet Count 297 X10*3/uL (160-400); Red Blood Count 4.76 X10*6/uL (4.60-5.80); White Blood Count 7.8 X10*3/uL (4.8-10.8)
[2025-01-02 05:10] LABS: Appearance Urine Clear; Glucose Urine UA >=1000 mg/dL (Negative); PH 6.5 (5.0-9.0); Specific Gravity - Urine >= 1.030 (1.005-1.025); UMIC TRIGGER UACC YES
[2025-01-02 05:16] LABS: Hemoglobin A1C 268.1169 umol/L; Total Hemoglobin (HGBA1C) 3630.7223 umol/L
[2025-01-02 05:26] LABS: Alanine Aminotransferase 35 U/L (0-40); Albumin Level 4.1 g/dL (3.5-5.0); Alkaline Phosphatase 122 U/L (39-117); Anion Gap 14 (12-20); Aspartate Amino Transferase 27 U/L (5-37); Blood Urea Nitrogen 21 mg/dL (9-16); Calcium 9.4 mg/dL (8.4-10.2); Carbon Dioxide 25 mmol/L (22-29); Chloride 103 mmol/L (96-108); Creatinine Clr Calc Pharmacy 83.3; Estimated Glomerular Filt Rate > 60; Potassium 4.0 mmol/L (3.3-5.1); Sodium 138 mmol/L (135-145); Total Protein 7.2 g/dL (6.5-8.0)
[2025-01-02] MEDS: Insulin Glargine,Hum.rec.anlog 100 UNIT/ML 10 ML VIAL 40 UNIT SUBCUT (06:04)
[2025-01-02 06:31] VITALS: BP 153/94; PULSE 50; RESP 16; TEMP 36.4; O2SAT 97
[2025-01-02 06:33] LABS: Glucose, Whole Blood 380 mg/dL (60-115)
[2025-01-02 07:09] VITALS: BP 153/94; PULSE 50; RESP 16; TEMP 36.4; O2SAT 97
[2025-01-02 08:21] LABS: Glucose, Whole Blood 379 mg/dL (60-115)
== END 2025-01-02 07:15 | disposition home or self-care (01) ==
PROVIDERS: Emergency Provider Emergency Medicine; PCP Physician Assistant
DX: E10.65 Type 1 diabetes mellitus with hyperglycemia (principal); I10 Essential (primary) hypertension; Z95.0 Presence of cardiac pacemaker; Z79.899 Other long term (current) drug therapy
CPT/HCPCS: 36415; 80053; 81001; 82947; 83036; 85025; 99283; 99284

== ENCOUNTER 2025-01-16 09:23 | Outpatient (AMB) | payer BC, SELFPAY ==
--- OUTSIDE RECORDS SUMMARY | 2023-10-18 06:30 | XMS_ITS ---
Author Organization [facility] Address [address] [place] [address] Care Team Providers Care Can Conveyor Feeder Name Role Phone Benedicto Kay MD Primary Care Provider Yossia Matheus Carter Unavailable [phone] REASON FOR VISIT screening, hx polyps Problems Problem Type SNOMED Code ICD Code Onset Dates Problem Status W/U Status Risk Notes Problem Diverticular disease of colon (160393439) Diverticulosis of large intestine without perforation or abscess without bleeding (K57.30) Active confirmed Encounters Encounter Location Date Provider Diagnosis [facility] Outpatient [address] [place] [phone] 10/18/2023 Matheus Nguyen Colon cancer scree trent [...] Notes * KRIS CORTESDOB:1965 (59 yo M)Acc No.[id number]:10/18/2023 COLON WITH MAC Patient: KRIS NEVAREZ Provider: Yana Nguyen MD :1965 A ge:58 Y S ex:Male Date:10/18/2023 Address:[address] [place] [address] , [place], [id number] Pcp:Benedicto Kay MD Subjective: * Chief Complaints: * 1 . Screening, hx polyps. * Medical History: Objective: * Vitals: Assessment: * Assessment: 1. C olon cancer screening - Z12.11 (Primary) 2 . C olon polyps - K63.5? 3. D iverticulosis of large intestine without perforation or abscess without bleeding - K57.30 4 . O ther hemorrhoids - K64.8 Plan: * Treatment: * Procedure Codes: 4 5385 LESION REMOVAL COLONOSCOPY, Modifiers: PT * * The named appointment provid er may or may not be the originator of this progress note, and it is not deemed complete until electronically signed by the appointment provider. Sign off status: Pending * Provider: Yana Nguyen MD Date: 0 10/18/2023 Generated for Diaz nugent/Christian/Enrikesmitting on: 1 10:18 AM EDT
[2025-01-16 09:30] VITALS: BP 122/72; PULSE 51; O2SAT 98
--- NOTE | 2025-01-16 09:30 | MHC.OFFVIS ---
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: Spike Machine Operator offered & declined Allergies No Known Allergies (No Known Allergies*) Allergy (Verified 01/16/25 09:39) Medication List - Last Reconciled 01/16/25 by James Pinto MD aspirin (Adult Aspirin Regimen) 81 mg PO DAILY atorvastatin 80 mg PO DAILY blood pressure test kit-large As directed flash glucose sensor As directed insulin aspart U-100 (Novolog FlexPen U-100 Insulin aspart) 1 sliding scale dose subcut USEASDIRECTD insulin glargine 40 units (0.4 mL) subcut BEDTIME metoprolol tartrate 25 mg PO BID semaglutide (Ozempic) 0.25 mg (0.368 mL) subcut QWEEK 4 weeks sildenafil (Viagra) 50 mg (1/2 x 100 mg) PO DAILY PRN 5 days Do you need a note to return to daycare/school/sports/work: No HPI HPI Obstructive sleep apnea: Details: Vinh is 59 years old gentleman, mostly with history of coronary artery disease, having had coronary artery bypass. He is also being treated for diabetes mellitus, arthritis, hyperlipidemia. He is only moderately overweight., physically active. 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 He has complained of waking up a few times during the night and not getting good sleep. So underwent home-based sleep study, which is abnormal and he is here to discuss the results and going on appropriate treatment. Does not have history of cough wheezing or shortness of breath. [facility] Medical History (Updated 01/16/25 @ 10:09 by James Pinto MD) Retrognathia Hx of cardiac pacemaker IBS (irritable bowel syndrome) Osteoarthritis AAA (abdominal aortic aneurysm) CAD (coronary artery disease) HTN (hypertension) Diabetes Abdominal aortic aneurysm (AAA) 3.0 cm to 5.5 cm in diameter in male Surgical History Hx of left inguinal hernia repair Hx of arthroscopy of knee H/O colonoscopy Status post double vessel coronary artery bypass Family History Mother Alzheimer disease Mental health disorder Father No problems noted. 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 Cognitive needs: No Hearing needs: No Vision needs: Yes (glasses) Review of Systems Const All systems reviewed & are unremarkable except as noted in HPI and below Reports snoring Eyes Reports no additional complaints ENT Reports no additional complaints Card Denies chest pain, Denies syncope, Denies irregular heart rhythm, Denies leg edema and Denies dyspnea on exertion Resp Denies dyspnea on exertion, Reports snoring and Denies wheezing GI Reports diarrhea (Off and on) Reports erectile dysfunction Musc Reports back pain and Reports arthralgias (Knees) Skin/Breast Reports system reviewed and no additional complaints, except as documented Neuro Reports no additional complaints and Denies syncope Psych Reports no additional complaints Endo Reports other (Diabetes mellitus) Roosevelt/Lymph Reports no additional complaints Aller/Immun Reports no additional complaints and Denies wheezing Physical Exam Vital Signs: Last Vital Signs Pulse 51 01/16/25 09:30 BP 122/72 01/16/25 09:30 Pulse Ox 98 01/16/25 09:30 Oxygen Delivery Method Room Air 01/16/25 09:30 BMI result Body Mass Index 30.0 Const General: healthy appearing, comfortable, no acute distress, alert and awake Orientation/consciousness: patient oriented x3 HEENT Head: Yes normal to inspection General nose exam: No nasal polyps present and No nasal discharge present Face and sinus: Yes sinuses nontender Mouth: oropharynx abnormals (Oropharynx is moderately crowded, Mallampati scale 3) Teeth and gingiva: other (He does have mild retrognathia of the lower jaw) Throat: Yes posterior oropharynx normal Eyes General: appearance normal, both eyes and all related structures Neck Neck: Yes normal visual inspection, Yes no lymphadenopathy, Yes trachea midline, Yes no JVD and Yes other (Neck circumference 18 in) Thyroid: Thyroid normal Chest Chest palpation & inspection: abnormal inspection of the chest (Midline scar from previous CABG), normal palpation of entire chest wall and no tenderness Resp Effort & Inspection: normal respiratory effort Auscultation: clear to auscultation bilaterally, no crackles and no wheezes Cardio Palpation: normal PMI Rate: regular rate Rhythm: regular rhythm Heart sounds: no gallops and no murmurs Peripheral pulses: Peripheral pulses 2+ throughout GI Palpation (GI): Soft to palpation, nontender, No hepatosplenomegaly present and no masses Auscultation: normal bowel sounds Back/Spine/Pelvis Thoracic/Lumbar Spine: thoracic and lumbar spine normal to inspection and thoraco-lumbar ROM limited Skin General skin exam: no rashes or lesions noted Neuro General: patient oriented x3 and no focal motor deficits Cranial nerves: Yes CN's II-XII intact bilaterally Extrem General: Yes normal to inspection, Yes no clubbing, cyanosis or edema and Yes no calf tenderness Psych Appearance: grossly normal and well kempt Speech and movement: Normal speech and movement present Results Reviewed Results Reviewed: REPORT OF HOME-BASED SLEEP STUDY ON 11/29/2024 IS REVIEWED. TOTAL SLEEP TIME AHI 25, SUPINE AHI 40 AND LATERAL POSITION AHI 18.4. SNORING FOR 41% OF THE SLEEP TIME. NO NOCTURNAL HYPOXEMIA Assessment & Plan Assessment & Plan (1) GREGORIO (obstructive sleep apnea): Comment: THIS PATIENT DOES HAVE MODERATELY SEVERE OBSTRUCTIVE SLEEP APNEA PER HST . Code(s): G47.33 - Obstructive sleep apnea (adult) (pediatric) Category: Medical Plan: EXPLAINED TO THE PATIENT AND ADVISE THAT HE SHOULD GO ON CPAP THERAPY. HE IS AGREEABLE. CPAP WITH A P MODE AND PRESSURE SETTING 6-20 CM IS ADVISED. HE WILL USE THE MASK OF HIS CHOICE FULLFACE OR NASAL. AND WILL BE MONITORED CLOSELY. (2) Retrognathia: Comment: HE HAS MILD RETROGNATHIA OF THE LOWER JAW. THIS DEFECT COMBINED WITH MODERATE OBESITY IS THE MAIN CAUSE OF HIS SLEEP APNEA. Code(s): M26.19 - Other specified anomalies of jaw-cranial base relationship Category: Medical Plan: JUST EXPLAINED TO THE PATIENT FOR HIS UNDERSTANDING. HE COULD LOSE ABOUT 5-10 LB OF WEIGHT WHICH WILL BE HELPFUL. Coding Level of Care Code New Pt Level 3 (92865) Diagnoses GREGORIO (obstructive sleep apnea) G47.33 Retrognathia M26.19
--- OUTSIDE RECORDS SUMMARY | 2025-01-16 10:19 | XMS_ITS | Patient Health Record ---
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 Name Role Phone Benedicto Kay MD Primary Care Provider Matheus Montgomery Unavailable [phone] Allergies No Known Allergies Reason For Referral [...] Status Risk Notes Problem Colon cancer screening (791006317) Colon cancer screening (Z12.11) Active confirmed Problem [id number] Encounter for screening for malignant neoplasm of colon (Z12.11) Active confirmed Problem History of adenomatous polyp of colon (466564374) History of adenomatous polyp of colon (Z86.010) Active confirmed Problem Diverticular disease of colon (329773387) Diverticulosis of large intestine without perforation or abscess without bleeding (K57.30) Active confirmed Problem [id number] Preprocedural examination (Z01.818) Active confirmed Problem Irritable bowel syndrome characterized by constipation (947529470) Irritable bowel syndrome with constipation (K58.1) Active confirmed Plan Of Treatment Future Test Test Name Order Date COLONOSCOPY 12/13/2018 COLONOSCOPY 09/13/2023 Insurance Providers Payer Name Payer Address Payer Phone Subscriber Number Group Number Insured Name Patient Relationship to Insured Coverage Start Date Coverage End Date [employer] [address] [place] [address] [id number] KRIS CORTES Self - patient is the insured Medical (General) History Medical History History ICD Code Denies CVA,Lung disease,renal disease Hypertension IDDM [place] 2006 with stents and 2 V CABG [...]
== END 2025-01-16 09:57 | disposition home or self-care (01) ==
LOC: HO.HPS 09:24
PROVIDERS: PCP Physician Assistant; Referring Provider Physician Assistant; Visit Provider Internal Medicine
DX: G47.33 Obstructive sleep apnea (adult) (pediatric) (principal); M26.19 Other specified anomalies of jaw-cranial base relationship
CPT/HCPCS: 99203

== ENCOUNTER 2025-01-23 09:57 | Outpatient (AMB) | payer BC, SELFPAY ==
[2025-01-23 09:58] VITALS: BP 122/72; PULSE 63; TEMP 36.6; O2SAT 98; BMI 29.4
--- NOTE | 2025-01-23 09:58 | AM.OFFWIN_ITS ---
Intake Vital Signs 01/23/25 09:58 Height 6 ft Weight 217 lb BMI 29.4 BP 122/72 Blood Pressure Location Lt brachial Position Sitting Pulse 63 Pulse Source Pulse Oximeter Temp 97.9 F Temp Source Oral Pulse Oximetry (%) 98 Intake Visit Reasons: ep sinus infection over a week Patient Tobacco Use Status: Never used Tobacco Allergies No Known Allergies (No Known Allergies*) Allergy (Verified 01/23/25 09:59) Do you need a note to return to daycare/school/sports/work: No HPI HPI Comments History of Present Illness Details History of Present Illness - The patient is a 59-year-old male pres enting with symptoms suggestive of a sinus infection and tinnitus in the left ear. - The patient reports nasal congestion t hat alternates sides during sleep, accompanied by facial pressure and green nasal discharge, persisting for over a week. - A history of sinus infections was note d, with the last occurrence being a couple of years ago. - The patient has been using Elise for allergy management and [id number] cold and flu medications, which have provided some relief from coughing. - The patient denies fever, body aches, shortness of breath, or chest pain. - The patient reports intermittent buzzi ng in the left ear for the past few days, which is a new symptom for him. - He denies chills, abd pain, n/v/d. - He denies dizziness, DIETRICH, cough, sick c ontacts, or travel. Physical Exam General: Cooperative, healthy appearing, comfortable, no acute distress and well developed Head: Normal to inspection Ears: Hearing grossly normal bilaterally. No tragus or mastoid tenderness noted. Auditory canals with cerumen bilaterally. TM's not visualized. Nose: Normal external nose present. Moist mucosa. Turbinates normal bilaterally, not boggy. Face and sinus: Tenderness to palpation of the frontal and maxillary sinuses bilaterally. Neck: Normal visual inspection and Yes full ROM. No lymphadenopathy noted. Respiratory: Normal respiratory effort and able to speak in complete sentences. Clear to auscultation bilaterally Cardiovascular: Regular rate and rhythm. Normal S1 and S2 GI: Normal to inspection. Soft to palpation and nontender, nondistended. No guarding noted. Skin: No rashes or lesions noted [facility] Medical History (Updated 01/16/25 @ 10:09 by James Pinto MD) Retrognathia Hx of cardiac pacemaker IBS (irritable bowel syndrome) Osteoarthritis AAA (abdominal aortic aneurysm) CAD (coronary artery disease) HTN (hypertension) Diabetes Abdominal aortic aneurysm (AAA) 3.0 cm to 5.5 cm in diameter in male Surgical History Hx of left inguinal hernia repair Hx of arthroscopy of knee H/O colonoscopy Status post double vessel coronary artery bypass Family History Mother Alzheimer disease Mental health disorder Father No problems noted. 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 Cognitive needs: No Hearing needs: No Vision needs: Yes (glasses) Review of Systems Const All systems reviewed & are unremarkable except as noted in HPI and below Physical Exam Vital Signs: Last Vital Signs Temp 97.9 F 01/23/25 09:58 Pulse 63 01/23/25 09:58 BP 122/72 01/23/25 09:58 Pulse Ox 98 01/23/25 09:58 BMI result Body Mass Index 29.4 Office Procedures Cerumen Removal From which ear canal was the cerumen removed: bilateral Removal: irrigation Notes: patient tolerated procedure well, no complications and ear canal clear [id number] Irrigation/Lavage Assessment & Plan Assessment & Plan (1) Sinus congestion: Code(s): R09.81 - Nasal congestion Plan: Most likely sinusitis vs viral illness vs covid, vs flu vs RSV plan - will order a resp panel - will call with the results - tylenol or motrin as needed - continue with elise - start Augmentin BID for 7 days - follow up with PCP (2) Cerumen impaction: Code(s): H61.20 - Impacted cerumen, unspecified ear Qualifiers: Laterality: bilateral Qualified Code(s): H61.23 - Impacted cerumen, bilateral Plan: Most likely cerumen impaction plan - will irrigate ears in the office - avoid q-tips - can use Debrox OTC Orders: Orders Resp Pathogen Panel - [facility] [place] Today J06.9 - Acute upper respiratory infection, unspecified AMB Cerumen Removal Today H61.23 - Impacted cerumen, bilateral Medications: New amoxicillin-pot clavulanate 875-125 mg 1 tab PO Q12H 14 tabs 0RF Coding Level of Care Code Est Pt Level 3 (73760) Diagnoses Sinus congestion R09.81 Bilateral impacted cerumen H61.23 Laterality: bilateral CPT Codes Office Procedure - CPT: 05036-Rsw Irrigation/Lavage ([id number])
== END 2025-01-23 10:50 | disposition home or self-care (01) ==
PROVIDERS: PCP Physician Assistant; Visit Provider Physician Assistant Medical
DX: R09.81 Nasal congestion (principal); H61.23 Impacted cerumen, bilateral

== ENCOUNTER 2025-01-23 09:57 | Outpatient (REF) | payer BC, SELFPAY ==
[2025-01-23 15:41] LABS: Chlamydia pneumoniae PCR Not Detected (Not Detect.); Coronavirus 229E PCR Not Detected (Not Detect.); Coronavirus HKU1 PCR Not Detected (Not Detect.); Coronavirus NL63 PCR Not Detected (Not Detect.); Coronavirus OC43 PCR Not Detected (Not Detect.); RSV PCR Not Detected (Not Detect.); Rhino/Enterovirus PCR Detected (Not Detect.); SARS-CoV-2 PCR Not Detected (Not Detect.)
[2025-01-23 15:42] LABS: Influenza A H1 PCR Not Detected (Not Detect.); Influenza A H1-2009 PCR Not Detected (Not Detect.); Influenza A H3 PCR Not Detected (Not Detect.)
== END 2025-01-23 09:58 | disposition home or self-care (01) ==
LOC: HO.LNP 09:57
PROVIDERS: PCP Physician Assistant; Visit Provider Physician Assistant Medical
DX: H61.23 Impacted cerumen, bilateral (principal); R09.81 Nasal congestion; J06.9 Acute upper respiratory infection, unspecified
CPT/HCPCS: 69209; 87633

== ENCOUNTER 2025-03-17 14:52 | Outpatient (AMB) | payer BC, SELFPAY ==
--- NOTE | 2025-03-17 14:56 | A.OFFPC_ITS ---
Vital Signs 03/17/25 14:57 Height 6 ft Weight 217 lb 8 oz BMI 29.5 BP 120/86 Blood Pressure Location Lt brachial Position Sitting Pulse 73 Pulse Source Pulse Oximeter Temp 97.1 F Temp Source Temporal Artery Scan Pulse Oximetry (%) 96 Oxygen Delivery Method Room Air Intake Visit Reasons: f/u DMI / CAD Intake Note: Patient is here to follow up on CAD, DM. Process Control Technician Required: No Backend Python Developer: Not Required per policy Accompanied by: Self / Same As Patient Allergies No Known Allergies (No Known Allergies*) Allergy (Verified 03/17/25 15:32) Medication List - Last Reconciled 03/17/25 by Sudhakar Washington PA-C aspirin (Adult Aspirin Regimen) 81 mg PO DAILY atorvastatin 80 mg PO DAILY blood pressure test kit-large As directed blood sugar diagnostic (OneTouch Verio test strips) As directed blood-glucose meter (ElectronifieTouch Verio Flex Meter) As directed flash glucose sensor As directed insulin aspart U-100 (Novolog FlexPen U-100 Insulin aspart) 1 sliding scale dose subcut USEASDIRECTD insulin glargine 40 units (0.4 mL) subcut BEDTIME lancets (ElectronifieTouch Delica Plus Lancet) As directed metoprolol tartrate 25 mg PO BID pen needle, diabetic (Ultra-Fine Pen Needle) As directed semaglutide (Ozempic) 0.25 mg (0.368 mL) subcut QWEEK 4 weeks sildenafil (Viagra) 50 mg (1/2 x 100 mg) PO DAILY PRN 5 days Tobacco use date assessed: 03/17/25 Dental Screening Dental Screen Date: 06/10/24 HPI f/u DMI / CAD HPI Details Patient is a 59-year-old male here today for follow-up visit. Patient has a past medical history significant for insulin-dependent diabetes, hyperlipidemia, obstructive sleep apnea coronary artery disease in an abdominal aortic aneurysm, knee osteoarthritis. Concern---> The patient reports a history of osteoarthritis in both knees with minimal cartilage, managed by an orthopedist, Dr. Jackson. The right knee pain is worsening, causing difficulty with stairs, and a knee replacement has been discussed but deferred. New musculoskeletal complaints include soreness in the wrists and right elbow, exacerbated by strenuous activities such as raking. The patient describes the right elbow pain as sharp and throbbing, causing weakness with lifting objects like a gallon of milk. There is a family history of pso riatic arthritis in the patient's brother and sister. Also has a lump over the back of his neck he would like to be evaluated .. Type 1 Diabetes: Today's A1c has improved a bit to 8.2. Patient followed by cooky machine operator at [facility]. He is due to see a new cooky machine operator at [facility] and discuss an insulin pump. The patient is on Ozempic and reports likely underdosing due to confusion with the pen's administration, which does not show dose numbers clearly. The patient also uses Novolog and Lantus insulin pens, which are clearly marked. An insulin pump has been discussed with the patient's previous cooky machine operator, and the patient has switched to a Litehousestyle 2 Plus continuous glucose monitor in preparation for this possibility. .. Abdominal aortic aneurysm: Most recent ultrasound done in June of 2024 showing aneurysm at 3.2 cm. .. .. Coronary artery disease: Has been quite some time since his last lipid panel, he continues on high potency statin and aspirin therapy. He continues to see Cardiology whom agree with GLP 1 therapy to reduce his cardiovascular overall risk due to his already established coronary artery disease. .. GREGORIO: Patient is also followed by platform inspector and will be starting a CPAP machine with nasal masks in near future. -- > Will consider transitioning his GLP 1 therapy to Mounjaro to also cover obstructive sleep apnea treatment. [facility] Medical History (Updated 03/18/25 @ 07:55 by Sudhakar Washington PA-C) Retrognathia Hx of cardiac pacemaker IBS (irritable bowel syndrome) Osteoarthritis CAD (coronary artery disease) HTN (hypertension) Diabetes Abdominal aortic aneurysm (AAA) 3.0 cm to 5.5 cm in diameter in male Surgical History Hx of left inguinal hernia repair Hx of arthroscopy of knee H/O colonoscopy Status post double vessel coronary artery bypass Family History Mother Alzheimer disease Mental health disorder Father No problems noted. 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 Cognitive needs: No Hearing needs: No Vision needs: Yes (glasses) Questionnaire Thrive Questionnaire Date Thrive assessed: 09/17/24 I am a: Patient What is your living situation today?: I have a steady place to live Within the past 12 months, did the food you bought not last and you didn't have the money to get more?: Never true Within the past 12 months, did you worry whether your food would run out before you got money to buy more?: Never true Do you have trouble paying for medicines?: No Do you have trouble getting transportation to medical appointments?: No Do you have trouble paying your heating and electricity bill?: No Do you have trouble taking care of your child, family member or friend?: No Do you have trouble with day-to-day activities such as bathing, preparing meals, shopping, managing finances, etc.?: No Are you currently unemployed and looking for a job?: No Are you interested in more education?: No Please select the resources that you would like help with: None Currently or been in a relationship where the following occur: I choose not to answer THRIVE Score: 0 JAMSHID-7 AMB Questionnaire JAMSHID-7 Date JAMSHID - 7 assessed: 06/10/24 Source: Developed by Drs. Matheus House, Conchita Jacome, Gutierrez Dorado and colleagues, with an educational lee ann from [employer]. Review of Systems Const Denies headache(s) Eyes Denies loss of vision ENT Denies vertigo, Denies dizziness, Denies headache(s) and Denies sore throat Card Denies chest pain, Denies leg edema and Denies lightheadedness Resp Denies cough, Denies hemoptysis and Denies wheezing GI Denies abdominal pain, Denies melena, Denies constipation, Denies diarrhea and Denies vomiting Denies dysuria, Denies urinary frequency and Denies urinary urgency Musc Denies arthralgias, Denies joint swelling, Denies numbness and Denies tingling Neuro Denies Abnormal speech present, Denies behavioral changes, Denies vertigo, Denies dizziness, Denies headache(s), Denies loss of vision, Denies memory loss, Denies numbness and Denies tingling Psych Denies anxiety, Denies behavioral changes, Denies depression, Denies memory loss and Denies panic attacks Roosevelt/Lymph Denies easy bleeding and Denies easy bruising Aller/Immun Denies wheezing Physical exam (Primary Care) Vital Signs: Last Vital Signs Temp 97.1 F 03/17/25 14:57 Pulse 73 03/17/25 14:57 BP 120/86 03/17/25 14:57 Pulse Ox 96 03/17/25 14:57 Oxygen Delivery Method Room Air 03/17/25 14:57 BMI result Body Mass Index 29.5 Tobacco/Smoking Status: Tobacco use Status Tobacco use date assessed 03/17/25 03/17/25 15:05 Patient Tobacco Use Status Never used Tobacco 03/17/25 15:05 Tobacco use type Cigarette 03/17/25 15:05 e-Cigarette/Vaping Use Never Used 03/17/25 15:05 Thrive Assessment: Date of Thrive Assessment Date Thrive assessed 09/17/24 03/17/25 15:05 Currently or been in a relationship where the following occur: I choose not to answer Const General: healthy appearing, no acute distress, alert and awake Nutritional Appearance: well nourished Orientation/consciousness: oriented to person, oriented to place and oriented to time HENMT Ears: TM's normal bilaterally General nose exam: Normal nasal mucous membranes and turbinates present Eyes Conjunctivae: conjunctivae normal Sclerae: sclerae normal Pupils: Equal, round and reactive pupils present Neck Neck: Yes no lymphadenopathy and Yes no JVD Thyroid: Thyroid normal Carotids: no bruits Resp Effort & Inspection: normal respiratory effort and not tachypneic Auscultation: no crackles, no rales, no rhonchi and no wheezes Cardio Rate: regular rate Rhythm: regular rhythm Heart sounds: no murmurs and normal S1 and S2 GI Palpation (GI): Soft to palpation, nontender, no hepatomegaly and no splenomegaly Auscultation: normal bowel sounds Skin General skin exam: no rashes or lesions noted and dry skin Neuro General: oriented to person, oriented to place and oriented to time Cranial nerves: Yes Equal, round and reactive pupils present Speech: No Abnormal speech present Gait exam (Neuro): Normal gait present Motor exam (neuro): no tremor noted Extrem Right upper extremity: full ROM Left upper extremity: full ROM Right lower extremity: full ROM; no edema Left lower extremity: full ROM; no edema Psych Mental Status: mental status grossly normal Speech and movement: Normal speech and movement present Affect: normal affect Attitude: cooperative Thought process: Normal thought process present Results AMB Hemoglobin A1c AMB Hemoglobin A1c 8.2 % Last Edit by DENNISE Knox on 03/17/25 15:17 Results Reviewed Results Reviewed: Laboratory Last Values Hgb A1c (Clinic) 8.2 % (4.0-6.0) H 03/17/25 14:56 Coding Level of Care Code Est Pt Level 4 (09362) Diagnoses Type 1 diabetes mellitus with other circulatory complication E10.59 Diabetes mellitus complication detail: with other circulatory complications Diabetes mellitus complication status: with circulatory complication Diabetes mellitus type: type 1 Right elbow pain M25.521 Bilateral wrist pain M25.531; M25.532 Primary hypertension I10 Hypertension type: primary hypertension Coronary artery disease involving [place] coronary artery of [place] heart without angina pectoris I25.10 Associated angina: without angina Coronary Disease-Associated Artery/Lesion type: [place] artery [place] vs. transplanted heart: [place] heart GREGORIO (obstructive sleep apnea) G47.33 Subcutaneous cyst L72.9 Assessment & Plan Assessment & Plan (1) Diabetes: Code(s): E11.9 - Type 2 diabetes mellitus without complications Category: Medical Qualifiers: Diabetes mellitus complication detail: with other circulatory complications Diabetes mellitus complication status: with circulatory complication Diabetes mellitus type: type 1 Qualified Code(s): E10.59 - Type 1 diabetes mellitus with other circulatory complications Plan: Patient has had type 1 diabetes for many years, continues on insulin therapy. Diabetes is suboptimally controlled with A1c today at 8.2. Does follow an cooky machine operator at [facility]. He is considering an insulin pump. Does use a continues glucose monitor which has been helpful. Will continue GLP 1 therapy to help him reduce his cardiovascular overall risk as he has establish coronary artery disease. Goal A1c is to be below 7.0 (2) Right elbow pain: Code(s): M25.521 - Pain in right elbow Category: Medical Plan: Regarding the right elbow pain, the primary suspected diagnosis is tendinitis (lateral epicondylitis). The initial plan involves conservative management with ice, rest, and a compression brace. The patient will also follow up with their orthopedist, Dr. Jackson, for further evaluation, which may include a cortisone injection. If not improved, a referral for physical therapy will be considered at the next follow-up. Given the family history of psoriatic arthritis, initial blood work for autoimmune markers will be checked, with a potential future referral to rheumatology. (3) Bilateral wrist pain: Code(s): M25.531 - Pain in right wrist; M25.532 - Pain in left wrist Category: Medical Plan: As above (4) HTN (hypertension): Code(s): I10 - Essential (primary) hypertension Category: Medical Qualifiers: Hypertension type: primary hypertension Qualified Code(s): I10 - Essential (primary) hypertension Plan: Patient's blood pressure acceptable today in office. Will continue his current dose of antihypertensive medication with goal blood pressure to be below 140/90 (5) CAD (coronary artery disease): Code(s): I25.10 - Atherosclerotic heart disease of [place] coronary artery without angina pectoris Category: Medical Qualifiers: Associated angina: without angina Coronary Disease-Associated Artery/Lesion type: [place] artery [place] vs. transplanted heart: [place] heart Qualified Code(s): I25.10 - Atherosclerotic heart disease of [place] coronary artery without angina pectoris Plan: Patient followed by Cardiology at [facility]. Continues on high potency statin and aspirin. Continue on GLP 1 therapy to help reduce his overall cardiovascular risk due to his established coronary artery disease. Goal optimal LDL to be below 70 (6) GREGORIO (obstructive sleep apnea): Comment: THIS PATIENT DOES HAVE MODERATELY SEVERE OBSTRUCTIVE SLEEP APNEA PER [facility]ST . Code(s): G47.33 - Obstructive sleep apnea (adult) (pediatric) Category: Medical Plan: Has gotten a sleep study at does have moderate obstructive sleep apnea. Will start on a CPAP machine near future (7) Subcutaneous cyst: Code(s): L72.9 - Follicular cyst of the skin and subcutaneous tissue, unspecified Category: Medical Plan: I examined the lump on the back of the patient's neck and provided reassurance that it appears to be a benign, mobile subcutaneous cyst. We agreed on a plan to monitor it, with the option for a general surgery referral for removal if it grows or becomes bothersome. Orders: Orders Cyclic Citrullinated Peptide 03/17/25 M25.531 - Pain in right wrist, M25.532 - Pain in left wrist Influenza [id number] Immunization 03/17/25 Z23 - Encounter for immunization AMB Hemoglobin A1c 03/17/25 E11.9 - Type 2 diabetes mellitus without complications, I10 - Essential (primary) hypertension Rheumatoid Factor 03/17/25 M25.531 - Pain in right wrist, M25.532 - Pain in left wrist Erythrocyte Sedimentation Rate 03/17/25 M25.531 - Pain in right wrist, M25.532 - Pain in left wrist Medications: New 2 Fluarix 0325-4086 (PF) (flu vac ts (6mos up)-PF) 0.5 mL IM ONCE 0.5 mL 0RF NS Z23 - Encounter for immunization Patient Instructions: Goal: LDL to be optimally below 70, blood pressure to remain below 140/90 and A1c to be below 7.0 Barriers: Adherence to physical activity and healthy eating habits
[2025-03-17 14:57] VITALS: BP 120/86; PULSE 73; TEMP 36.2; O2SAT 96; BMI 29.5
== END 2025-03-17 16:04 | disposition home or self-care (01) ==
LOC: HO.HMCH 14:53
PROVIDERS: PCP Physician Assistant; Visit Provider Physician Assistant
DX: E10.59 Type 1 diabetes mellitus with other circulatory complications (principal); M25.521 Pain in right elbow; M25.531 Pain in right wrist; M25.532 Pain in left wrist; I10 Essential (primary) hypertension; I25.10 Atherosclerotic heart disease of native coronary artery without angina pectoris; G47.33 Obstructive sleep apnea (adult) (pediatric); L72.9 Follicular cyst of the skin and subcutaneous tissue, unspecified

== ENCOUNTER → 2025-03-17 14:52 | Outpatient (BNVA) | payer BC, SELFPAY | PROVIDERS: PCP Physician Assistant; Visit Provider Physician Assistant | DX: E10.59 Type 1 diabetes mellitus with other circulatory complications (principal); M25.521 Pain in right elbow; M25.531 Pain in right wrist; M25.532 Pain in left wrist; I10 Essential (primary) hypertension; I25.10 Atherosclerotic heart disease of native coronary artery without angina pectoris; G47.33 Obstructive sleep apnea (adult) (pediatric); L72.9 Follicular cyst of the skin and subcutaneous tissue, unspecified | CPT/HCPCS: 83036 ==

== ENCOUNTER 2025-04-03 09:41 | Outpatient (REF) | payer BC, SELFPAY ==
--- OUTSIDE RECORDS SUMMARY | 2023-10-18 05:30 | XMS_ITS ---
Author Organization [facility] Address [address] [place] [address] Care Team Providers Care Sales Account Coordinator Name Role Phone Benedicto Kay MD Primary Care Provider Yossia Matheus Carter Unavailable [phone] REASON FOR VISIT screening, hx polyps Problems Problem Type SNOMED Code ICD Code Onset Dates Problem Status W/U Status Risk Notes Problem Diverticular disease of colon (875233832) Diverticulosis of large intestine without perforation or abscess without bleeding (K57.30) Active confirmed Encounters Encounter Location Date Provider Diagnosis [facility] [address] [place] [id number] 10/18/2023 Matheus Nguyen Colon cancer scree trent Z12.11 ; Colon polyps K63.5 ; Diverticulosis of large intestine without perforation or abscess without bleeding K57.30 and Other hemorrhoids K64.8 Assessments Encounter Date Diagnosis (ICD Code) Assessment Notes Treatment Notes Treatment Clinical Notes Section Notes 10/18/2023 Colon cancer screening (ICD-10 - Z12.11) 10/18/2023 Colon polyps (ICD-10 - K63.5) 10/18/2023 Diverticulosis of large intestine without perforation or abscess without bleeding (ICD-10 - K57.30) 10/18/2023 Other hemorrhoids (ICD-10 - K64.8) Plan Of Treatment No Information Progress Notes * KRIS CORTESDOB:1965 (59 yo M)Acc No.[id number]:10/18/2023 COLON WITH MAC Patient: KRIS NEVAREZ Provider: Yana Nguyen MD :1965 A ge:58 Y S ex:Male Date:10/18/2023 Address:[address] [place] [address] , [place], [id number] Pcp:Benedicto Kay MD Subjective: * Chief Complaints: * S creening, hx polyps Assessment: * Assessment: 1. C olon cancer screening - Z12.11 (Primary) 2 . C olon polyps - K63.5? 3. D iverticulosis of large intestine without perforation or abscess without bleeding - K57.30 4 . O ther hemorrhoids - K64.8 Plan: * Procedure Codes: 4 5385 LESION REMOVAL COLONOSCOPY, Modifiers: PT Billing Information: * Procedure Codes: 76916 LESION REMOVAL COLONOSCOPY. Modifiers: PT * The named appointment provid er may or may not be the originator of this progress note, and it is not deemed complete until electronically signed by the appointment provider. Sign off status: Pending * Provider: Yana Nguyen MD Date: 0 10/18/2023 Generated for Diaz nugent/Christian/Milleritting on: 1 06/04/2024 11:31 AM EST
[2025-04-03 10:22] LABS: Hematocrit 45.7 % (42.0-52.0); Hemoglobin 15.7 g/dl (14.0-18.0); Mean Corpuscular HGB Conc 34.4 g/dl (31.0-36.0); Mean Corpuscular Hemoglobin 30.0 pg (27.0-33.0); Mean Corpuscular Volume 87.2 fL (80.0-98.0); NRBC Abs Auto 0.000 X10*3/uL (0.0-0.012); NRBC Pct Auto 0.0 /100WBC (0.0-0.2); Platelet Count 287 X10*3/uL (160-400); Red Blood Count 5.24 X10*6/uL (4.60-5.80); White Blood Count 8.3 X10*3/uL (4.8-10.8)
--- OUTSIDE RECORDS SUMMARY | 2025-04-03 11:31 | XMS_ITS | Patient Health Record ---
Author Organization [facility] Address [address] [place] [address] Care Team Providers Care Bag Cutter Name Role Phone Benedicto Kay MD Primary Care Provider Matheus Montgomery Unavailable [phone] Allergies No Known Allergies Reason For Referral No Information Medications Medication SIG (Take, Route, Frequency, Duration) Notes Start Date End Date Status Metoprolol Succinate 50 MG Capsule ER 24 Hour Sprinkle 1 capsule Orally Once a day; Duration: 30 day(s) Active Lantus 100 UNIT/ML Solution 40 units as directed Subcutaneous QHS Active Lipitor 80 MG Tablet 1 tablet Orally Onc e a day; Duration: 30 day(s) Active HumaLOG 100 UNIT/ML Solution as directed Subcutaneous daily Active Immunizations Vaccine Route Administration Date Status Comme nts Influenza Unknown 12/13/2018 Refused Influenza Unknown 02/07/2023 Administered Social History Tobacco Use: Social History Observation Description Date Details (start date - stop date) Former Smoker NA - NA Social History Drugs/Alcohol: Social Info Question Answer Notes Alcohol Screen Did you have a drink containing alcohol in the past year? No Points 0 Interpretation Negative Tobacco Use: Social Info Question Answer Notes Tobacco Use/Smoking Patient is a former smoker How long has it been since you last smoked? 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 [employer] Section Notes: Nonsmoker; no alcohol Nonsmoker; no alcohol Problems Problem Type SNOMED Code ICD Code Onset Dates Problem Status W/U Status Risk Notes Problem Colon cancer screening (343505358) Colon cancer screening (Z12.11) Active confirmed Problem Screening for malignant neoplasm of colon (867218678) Encounter for screening for malignant neoplasm of colon (Z12.11) Active confirmed Problem History of adenomatous polyp of colon (721863913) History of adenomatous polyp of colon (Z86.010) Active confirmed Problem Diverticular disease of colon (465556596) Diverticulosis of large intestine without perforation or abscess without bleeding (K57.30) Active confirmed Problem Preprocedural examination (462627484802518) Preprocedural examination (Z01.818) Active confirmed Problem Irritable bowel syndrome characterized by constipation (870588058) Irritable bowel syndrome with constipation (K58.1) Active confirmed Plan Of Treatment Future Test Test Name Order Date COLONOSCOPY 12/13/2018 COLONOSCOPY 09/13/2023 Insurance Providers Payer Name Payer Address Payer Phone Subscriber Number Group Number Insured Name Patient Relationship to Insured Coverage Start Date Coverage End Date [facility] BCBS PROFESSIONAL CLAIMS [address] [place] [address] [id number] KRIS CORTES Self - patient is the insured Medical (General) History Medical History History ICD Code Denies CVA,Lung disease,renal disease Hypertension IDDM [place] 2006 with stents and 2 V CABG [...]
[2025-04-03 12:31] LABS: Alanine Aminotransferase 27 U/L (0-40); Albumin Level 4.3 g/dL (3.5-5.0); Alkaline Phosphatase 92 U/L (39-117); Anion Gap 10 (12-20); Aspartate Amino Transferase 24 U/L (5-37); Blood Urea Nitrogen 19 mg/dL (9-16); Calcium 9.2 mg/dL (8.4-10.2); Carbon Dioxide 27 mmol/L (22-29); Chloride 106 mmol/L (96-108); Cholesterol 194 mg/dL (<200); Estimated Glomerular Filt Rate > 60; HDL Cholesterol 36 mg/dL (>40); Potassium 4.3 mmol/L (3.3-5.1); Sodium 139 mmol/L (135-145); Total Protein 7.5 g/dL (6.5-8.0); Triglycerides 87 mg/dL (<150)
[2025-04-03 15:10] LABS: Microalbum/Creatinine Ratio Ur 6.4 ug/mg cr (<30)
== END 2025-04-03 09:42 | disposition home or self-care (01) ==
LOC: HO.LAB 09:41
PROVIDERS: PCP Physician Assistant; Visit Provider Physician Assistant
DX: M25.531 Pain in right wrist (principal); M25.532 Pain in left wrist; E78.5 Hyperlipidemia, unspecified; E10.59 Type 1 diabetes mellitus with other circulatory complications
CPT/HCPCS: 36415; 80053; 80061; 82043; 82570; 85027; 85652; 86200; 86431

== ENCOUNTER 2025-04-04 12:56 | Outpatient (AMB) | payer BC, SELFPAY ==
--- OUTSIDE RECORDS SUMMARY | 2023-10-18 05:30 | XMS_ITS ---
Author Organization [facility] Address [address] [place] [address] Care Team Providers Care Service Loss Control Consultant Name Role Phone Benedicto Kay MD Primary Care Provider Yossia Matheus Carter Unavailable [phone] REASON FOR VISIT screening, hx polyps Problems Problem Type SNOMED Code ICD Code Onset Dates Problem Status W/U Status Risk Notes Problem Diverticular disease of colon (137960791) Diverticulosis of large intestine without perforation or abscess without bleeding (K57.30) Active confirmed Encounters Encounter Location Date Provider Diagnosis [facility] [place] [address] [place] [id number] 10/18/2023 Matheus Nguyen Colon cancer scree trent [...] Notes * KRIS CORTESDOB:1965 (59 yo M)Acc No.[id number]:10/18/2023 COLON WITH MAC Patient: KRIS NEVAREZ Provider: Yana Nguyen MD :1965 A ge:58 Y S ex:Male Date:10/18/2023 Address:[address] [place] [address] , [place], [id number] Pcp:Benedicto Kay MD Subjective: * Chief Complaints: [...] Modifiers: PT Billing Information: * Procedure Codes: 09929 LESION REMOVAL COLONOSCOPY. Modifiers: PT * The named appointment provid er may or may not be the originator of this progress note, and it is not deemed complete until electronically signed by the appointment provider. Sign off status: Pending * Provider: Yana Nguyen MD Date: 0 10/18/2023 Generated for Diaz nugent/Christian/Milleritting on: 1 06/05/2024 02:40 PM EST
[2025-04-04 13:30] VITALS: BP 116/78; PULSE 71; TEMP 36.6; O2SAT 98; BMI 29.2
--- NOTE | 2025-04-04 13:30 | AM.OFFWIN_ITS ---
Intake Vital Signs 04/04/25 13:30 Height 6 ft Weight 215 lb BMI 29.2 BP 116/78 Blood Pressure Location Lt brachial Position Sitting Pulse 71 Pulse Source Pulse Oximeter Temp 97.8 F Temp Source Oral Pulse Oximetry (%) 98 Oxygen Delivery Method Room Air Intake Visit Reasons: EP Possible cyst on back of neck Intake Note: Patient presents c/o lump on back of neck - has had for a while but last couple months it has gotten bigger & is now painful. Patient Tobacco Use Status: Never used Tobacco Allergies No Known Allergies (No Known Allergies*) Allergy (Verified 04/04/25 13:32) HPI HPI Comments History of Present Illness Details History of Present Illness - The patient is a 59-year-old male pres enting with a painful, enlarging mass on the back of his neck. - He reports having the mass, which he p resumes is a cyst, for a while, but it has recently become more symptomatic. - He was seen by his primary care physic corine on May 18, who suspected an ingrown hair or a cyst and recommended observation. - However, since March 17, the lesio n has doubled in size and is now causing pain. Review of Systems - Integumentary: Reports a painful, tend er, and enlarging mass on the posterior neck. All systems reviewed and are unremarkable except as noted in HPI Physical Exam General: Cooperative, healthy appearing, comfortable, no acute distress and well developed Orientation: Patient oriented x3 Limitations: No limitations Head: Normal to inspection Ears: Hearing grossly normal bilaterally Nose: Normal External nose present Face and sinus: Normal facial exam Eyes: Appearance normal, both eyes and all related structures Neck: Indurated, firm 2 cm round mobile abscess present, no erythema, warmth or drainage Respiratory: Normal respiratory effort and able to speak in complete sentences. Skin: No rashes or lesions noted Neuro: Patient oriented x3 Extremities: Normal to inspection [facility] Medical History (Updated 04/04/25 @ 13:41 by Tish Chow PA-C) Abscess Retrognathia Hx of cardiac pacemaker IBS (irritable bowel syndrome) Osteoarthritis CAD (coronary artery disease) HTN (hypertension) Diabetes Abdominal aortic aneurysm (AAA) 3.0 cm to 5.5 cm in diameter in male Surgical History Hx of left inguinal hernia repair Hx of arthroscopy of knee H/O colonoscopy Status post double vessel coronary artery bypass Family History Mother Alzheimer disease Mental health disorder Father No problems noted. 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 Abscess Of Neck - The patient presents with a 2 cm, indurated, mobile, and painful mass on the posterior neck which has doubled in size since Mar 17. - The differential diagnosis includes an abscess vs lipoma vs other. - Due to the induration of the lesion, an incision and drainage procedure is deferred as it would likely cause bleeding without successful drainage of purulent material. - A course of Doxycycline will be initiated, to be taken every 12 hours for 7 days, to treat a suspected infection which may be causing the increased size and tenderness. - A stat referral will be sent to dermatology for further evaluation and potential excision, particularly if the lesion does not improve with antibiotics. - The patient was advised that he can cancel the dermatology appointment if the condition resolves. Orders: Referrals Dermatology Referral L02.91 - Cutaneous abscess, unspecified Medications: New doxycycline hyclate 100 mg PO BID 14 tabs 0RF Coding Level of Care Code Est Pt Level 3 (80047) Diagnoses Abscess L02.91
--- OUTSIDE RECORDS SUMMARY | 2025-04-04 14:41 | XMS_ITS | Patient Health Record ---
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: Nonsmoker; no alcohol Nonsmoker; no alcohol Problems Problem Type SNOMED Code ICD Code Onset Dates Problem Status W/U Status Risk Notes Problem Colon cancer screening (815448910) Colon cancer screening (Z12.11) Active confirmed Problem Screening for malignant neoplasm of colon (828045341) Encounter for screening for malignant neoplasm of colon (Z12.11) Active confirmed Problem History of adenomatous polyp of colon (732738238) History of adenomatous polyp of colon (Z86.010) Active confirmed Problem Diverticular disease of colon (367363223) Diverticulosis of large intestine without perforation or abscess without bleeding (K57.30) Active confirmed Problem Preprocedural examination (651606076075960) Preprocedural examination (Z01.818) Active confirmed Problem Irritable bowel syndrome characterized by constipation (404919917) Irritable bowel syndrome with constipation (K58.1) Active confirmed Plan Of Treatment Future Test Test Name Order Date COLONOSCOPY 12/13/2018 COLONOSCOPY 09/13/2023 Insurance Providers Payer Name Payer Address Payer Phone Subscriber Number Group Number Insured Name Patient Relationship to Insured Coverage Start Date Coverage End Date [facility] BCBS PROFESSIONAL CLAIMS [address] [place] [address] [id number] KRIS CORTES Self - patient is the insured Medical (General) History Medical History History ICD Code Denies CVA,Lung disease,renal disease Hypertension IDDM [place] 2006 with stents and 2 V CABG [...]
== END 2025-04-04 14:04 | disposition home or self-care (01) ==
PROVIDERS: PCP Physician Assistant; Visit Provider Physician Assistant
DX: L02.91 Cutaneous abscess, unspecified (principal)